=== PATIENT | male | born 1935 | race Caucasian/White ===

== ENCOUNTER 2018-06-12 18:40 | Inpatient (IN) | payer MEDICARE, SELFPAY ==
[2018-06-12 18:53] VITALS: BP 156/94; PULSE 84; RESP 16; TEMP 36.2; O2SAT 98
--- NOTE | 2018-06-12 19:15 | ED.BACK ---
HPI - Back Pain/Injury <DARWIN Sutherland - Last Filed: 06/12/18 22:55> General Chief Complaint: Back Pain/Injury Stated Complaint: WEAKNESS Time Seen by Provider: 06/12/18 19:08 Source: patient Mode of arrival: ambulatory Limitations: no limitations History of Present Illness HPI Narrative: 82-year-old male with history of dementia brought in by due to having worsening weakness over the past 4-5 days. states that he has not been able to walk for the last few days. She states that he had a ground level fall approximately 5 days ago where he landed on his buttocks area while he was trying to sit on the bed. She denies any head injuries. Patient does have a history of having past TIAs. Patient is unable to give any history due to his dementia. Believe patient is saying that he has pain into his middle back. No other known complaints Related Data Home Medications Medication Instructions Recorded Confirmed LATANOPROST 0.005% OPHTH 1 drp OPHTH HS #2.5 ml 10/12/12 06/12/18 (Latanoprost) atorvastatin 40 mg PO QDAY #0 10/12/12 06/12/18 metformin [Glucophage] 1,000 mg PO BIDCC #0 10/12/12 06/12/18 metoprolol succinate 50 mg PO QDAY #0 10/12/12 06/12/18 acetaminophen 1,000 mg PO TID #0 12/08/17 06/12/18 apixaban [Eliquis] 2.5 mg PO BID #0 12/08/17 06/12/18 losartan 50 mg PO QDAY #0 12/08/17 06/12/18 metoprolol succinate [Toprol XL] 100 mg PO QDAY #0 12/08/17 06/12/18 B-12 Compliance 06/13/18 mirabegron [Myrbetriq] 50 mg PO Q OTHER DAY 06/13/18 06/13/18 Allergies Allergy/AdvReac Type Severity Reaction Status Date / Time No Known Drug Allergies Allergy Verified 06/12/18 22:57 Review of Systems <DARWIN Sutherland - Last Filed: 06/12/18 22:55> Constitutional Denies chills, Denies fever(s), Denies lethargy and Reports weakness Comments: says that patient is unable to walk at this point Eyes Denies change in vision, Denies eye discharge, Denies irritation and Denies loss of vision ENT Ears, Nose, Mouth, and Throat: Denies change in voice, Denies neck pain and Denies sore throat Cardiovascular Denies chest pain, Denies irregular heart rhythm, Denies lightheadedness, Denies palpitations, Denies dyspnea, Denies dyspnea on exertion and Denies orthopnea Respiratory Denies cough, Denies dyspnea, Denies dyspnea on exertion and Denies wheezing Gastrointestinal Gastrointestinal: Denies abdominal pain, Denies change in bowel habits, Denies diarrhea, Denies nausea and Denies vomiting Genitourinary Denies hematuria, Denies flank pain, Denies urinary incontinence and Denies urinary urgency Musculoskeletal Denies neck pain Comments: Decreased ability to ambulate pain to middle back Integumentary/Breasts Denies pruritus, Denies erythema, Denies rash and Denies wounds Neurologic Denies confusion, Denies loss of vision and Reports weakness Psychiatric Denies anxiety, Denies confusion, Denies depression, Denies homicidal ideation and Denies suicidal ideation Endocrine Denies palpitations Hematologic/Lymphatic Denies easy bruising Allergic/Immunologic Denies wheezing Exam <DARWIN Sutherland - Last Filed: 06/12/18 22:55> Initial Vital Signs Initial Vital Signs: Vital Signs Temperature 97.2 F L 06/12/18 18:53 Pulse Rate 84 06/12/18 18:53 Respiratory Rate 16 06/12/18 18:53 Blood Pressure 156/94 H 06/12/18 18:53 Pulse Oximetry 98 06/12/18 18:53 Const General: cooperative and well developed Nutritional Appearance: well nourished Orientation: alert, awake, oriented x3 and not confused [facility] Mouth: oral mucosae normal and moist mucous membranes Eyes General: appearance normal, both eyes and all related structures Eyelids: eyelids normal Conjunctivae: conjunctivae normal Sclera: sclerae normal Pupils: PERRL EOM: EOM intact bilaterally Resp Effort & Inspection: normal respiratory effort, able to speak in complete sentences, no respiratory distress and no use of accessory muscles Auscultation: clear to auscultation bilaterally, no rales, no rhonchi and no wheezes Cardio Rate: regular rate Rhythm: regular rhythm Heart Sounds: no click, no gallops, no murmurs and no rubs Pulses: normal peripheral pulses GI Inspection: non-distended Palpation: soft, no hepatosplenomegaly, No guarding, No pulsatile mass and No tender Auscultation: normal bowel sounds Back/Spine/Pelvis Back: No CVA tenderness Cervical Spine: cervical ROM normal and No pain with cervical ROM Thoracic/Lumbar Spine: thoracic and lumbar spine normal to inspection Skin General: no rashes or lesions noted, No jaundice and No petechiae Neuro General: alert, awake, not oriented x3, gait abnormal, confused and unable to assess gait Cognition: normal cognition <Cintia Hawthorne DO - Last Filed: 06/13/18 05:42> Initial Vital Signs Initial Vital Signs: Vital Signs Temperature 97.2 F L 06/12/18 18:53 Pulse Rate 84 06/12/18 18:53 Respiratory Rate 16 06/12/18 18:53 Blood Pressure 156/94 H 06/12/18 18:53 Pulse Oximetry 98 06/12/18 18:53 GENERAL: Chronically ill frail appearing elderly male HEENT: Head atraumatic,EOMI, pupils reactive, very mild right-sided facial droop NECK: Supple no tenderness CARDIOVASCULAR: Regular rate and rhythm without murmurs, rubs or gallops. RESPIRATORY: Breath sounds equal bilaterally, no wheezes rales or rhonchi. ABDOMEN: Soft, nontender. Normoactive bowel sounds all 4 quadrants. No guarding or rebound. : No CVA tenderness EXTREMITIES: Normal range of motion, no clubbing or edema. Neurovascularly intact NEUROLOGICAL: Awake and alert is able to participate follow some commands. Left hand sanitarian strength is weaker but arms do not drift to the gurney. Does not move legs but can wiggle toes on both sides. Both legs dropped quickly to the gurney. Sensation is intact in all extremities. SKIN: Warm, dry, no laceration, no petechiae, no rashes or lesions. Course <DARWIN Sutherland - Last Filed: 06/12/18 22:55> Orders Ordered: ED Orders 06/12/18 20:55 Urine Microscopic Stat 06/12/18 22:50 Consult to Physician Routine 06/13/18 00:22 Consult to Dietitian, Adult Routine 06/13/18 00:24 Consult to Dietitian, Adult Routine 06/13/18 05:31 MRSA PCR Routine Acetaminophen (Tylenol) 650 mg PO Q6HR PRN PRN Reason: As Needed for Fever/Mild Pain Sodium Chloride (Normal Saline 0.9%) 1,000 mls @ 125 mls/hr IV CONT [facility] Last Admin: 06/13/18 00:51 Dose: 125 mls/hr Ondansetron HCl (Zofran) 4 mg IV Q4HR PRN PRN Reason: Nausea And Vomiting Vital Signs - 8 hr 06/12/18 22:08 06/12/18 23:42 06/13/18 00:05 Temperature 97.7 F Pulse Rate 74 78 67 Respiratory Rate 15 16 15 Blood Pressure 132/87 H 140/73 H Blood Pressure [Right Arm] 130/69 H Pulse Oximetry 99 99 98 <Cintia Hawthorne DO - Last Filed: 06/13/18 05:42> Orders Ordered: ED Orders 06/12/18 20:55 Urine Microscopic Stat 06/12/18 22:50 Consult to Physician Routine 06/13/18 00:22 Consult to Dietitian, Adult Routine 06/13/18 00:24 Consult to Dietitian, Adult Routine 06/13/18 05:31 MRSA PCR Routine Acetaminophen (Tylenol) 650 mg PO Q6HR PRN PRN Reason: As Needed for Fever/Mild Pain Sodium Chloride (Normal Saline 0.9%) 1,000 mls @ 125 mls/hr IV CONT [facility] Last Admin: 06/13/18 00:51 Dose: 125 mls/hr Ondansetron HCl (Zofran) 4 mg IV Q4HR PRN PRN Reason: Nausea And Vomiting Vital Signs - 8 hr 06/12/18 22:08 06/12/18 23:42 06/13/18 00:05 Temperature 97.7 F Pulse Rate 74 78 67 Respiratory Rate 15 16 15 Blood Pressure 132/87 H 140/73 H Blood Pressure [Right Arm] 130/69 H Pulse Oximetry 99 99 98 MDM - Back Pain/Injury <DARWIN Sutherland - Last Filed: 06/12/18 22:55> Lab Data Result diagrams: 06/12/18 20:30 06/12/18 20:30 Lab Results 06/12/18 06/12/18 06/12/18 Range/Units 20:30 20:30 20:55 WBC 5.9 (4.5-11.0) X10^3/uL RBC 4.07 L (4.5-5.9) X10^6/uL Hgb 11.4 L (13.5-17.5) g/dL Hct 34.4 L (41-53) % MCV 84.6 (80-100) fL MCH 28.0 (26-34) PG MCHC 33.2 (30-36) % RDW 15.8 H (11.6-14.8) % Plt Count 261 (150-400) X10^3/uL Neut % (Auto) 63.6 (50-75) % Lymph % (Auto) 25.0 (25-40) % [place] % (Auto) 8.8 (3-14) % Eos % (Auto) 2.2 (2-4) % Baso % (Auto) 0.4 (0-2) % Neut # (Auto) 3700 (2106-8735) /uL Sodium 136 L (137-145) mmol/L Potassium 4.6 (3.4-5.1) mmol/L Chloride 99 (98-107) mmol/L Carbon Dioxide 29 (22-32) mmol/L BUN 15 (9-20) mg/dL Creatinine 0.90 (0.66-1.25) mg/dL Estimated GFR > 60.0 (>60) mL/min BUN/Creatinine Ratio 16.7 (6-22) Glucose 178 H (80-110) mg/dL Calcium 9.1 (8.4-10.2) mg/dL Total Bilirubin 0.4 (0.2-1.3) mg/dL AST 15 L (17-59) IU/L ALT 19 L (21-72) IU/L Alkaline Phosphatase 61 (38-126) U/L Total Creatine Kinase 85 (55-170) U/L Troponin I < 0.012 (0.01-0.034) ng/mL Total Protein 6.9 (6.3-8.2) g/dL Albumin 3.7 (3.5-5.0) g/dL Globulin 3.2 (1.7-4.1) g/dL Albumin/Globulin Ratio 1.2 (1.0-2.8) Urine RBC 0-1/hpf (0-5/HPF) Urine WBC None seen (0-5/HPF) Urine Bacteria None seen (None) Hyaline Casts 0-1/lpf (None) Ur Culture Indicated? Cult not indicated Micro UA Comment Not Reportable Imaging Data CT scan - head: Radiologist's impression: PROCEDURE: CT HEAD/BRAIN WO CON INDICATIONS: Decreased ability to ambulate TECHNIQUE: Noncontrast 4.5 mm thick angled axial sections acquired from the foramen magnum to the vertex, with coronal and sagittal reformats. For radiation dose reduction, the following was used: automated exposure control, adjustment of mA and/or kV according to patient size. COMPARISON: [facility], CT, HEAD WITHOUT CONTRAST, 12/08/2017, 10:39. [facility], CT, HEAD WITHOUT CONTRAST, 07/24/2015, 17:19. [facility], MR, STROKE PROTOCOL, 10/12/2012, 17:17. [facility], CT, HEAD WITHOUT CONTRAST, 10/12/2012, 15:46. [facility], CT, HEAD WITHOUT CONTRAST, 12/30/2017, 15:47. FINDINGS: Image quality: Excellent. CSF spaces: Basal cisterns are patent. No extra-axial fluid collections. The ventricles are symmetric in size and shape. Brain: No intracranial bleeds or masses. There is moderate cerebral volume loss for age, with resultant ventricular and sulcal prominence. There are severe periventricular and deep white matter chronic small vessel ischemic changes. 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 There is intracranial internal carotid artery and vertebral artery atherosclerosis. Skull and face: Calvarium and visualized facial bones appear intact, without suspicious lesions. Sinuses: Small air-fluid level noted in the left maxillary sinus. The mastoids are clear. IMPRESSION: No acute intracranial disease process. Dictated by: Alisson Grant MD, PhD on 06/12/2018 at 20:16 Approved by: Alisson Grant MD, PhD on 06/12/2018 at 20:21 Chest x-ray: Radiologist's impression: PROCEDURE: XR CHEST 1V INDICATIONS: Weakness unable ambulate TECHNIQUE: One view of the chest was acquired. COMPARISON: [facility], , CHEST 1 VIEW, 10/12/2012, 16:35. [facility], CHEST 2 VIEW, 09/07/2010, 11:50. [facility], CHEST 2 VIEW, 04/25/2008, 12:46. [facility], CR, CHEST 1 VIEW, 12/30/2017, 15:36. FINDINGS: Surgical changes and devices: None. Lungs and pleura: No pleural effusions or pneumothorax. There is cephalization of the pulmonary vasculature and increased interstitial prominence. Mediastinum: Mediastinal contours appear normal. Heart size is heart is enlarged Bones and chest wall: No suspicious bony lesions. Overlying soft tissues appear unremarkable. IMPRESSION: Cardiomegaly with cephalization of pulmonary vasculature and increased interstitial prominence concerning for CHF. Dictated by: Alisson Grant MD, PhD on 06/12/2018 at 20:11 Approved by: Alisson Grant MD, PhD on 06/12/2018 at 20:12 Lumbar x-ray: Radiologist's impression: PROCEDURE: XR LUMBAR SPINE 2-3V INDICATIONS: Possible back pain after fall TECHNIQUE: 3 views of the lumbar spine were acquired. COMPARISON: None. FINDINGS: Bones: 5 [id number] vertebrae are present. There is normal bony alignment. No vertebral body compression fractures. No suspicious bony lesions. Multilevel degenerative disc disease and facet arthropathy. Soft tissues: Overlying bowel gas pattern is normal. Atherosclerotic calcifications noted. IMPRESSION: No fracture. No acute osseous lesion. If there are persistent symptoms or continued clinical suspicion for pathology, then MRI should be considered for further evaluation. Dictated by: Alisson Grant MD, PhD on 06/12/2018 at 20:15 Approved by: Alisson Grant MD, PhD on 06/12/2018 at 20:15 Thoracic x-ray: Radiologist's impression: PROCEDURE: XR THORACIC SPINE 3V INDICATIONS: Possible back pain after fall TECHNIQUE: 3 views of the thoracic spine were acquired. COMPARISON: None. FINDINGS: Bones: No fractures or dislocations. No suspicious bony lesions. 12 pairs of ribs are noted, and appear intact where visualized. Multilevel degenerative changes noted. Soft tissues: No paravertebral stripe thickening. IMPRESSION: No fracture. No osseous lesion. If there are persistent symptoms or clinical suspicion for pathology, then repeat radiographs or advanced imaging (CT, MRI or bone scan) should be considered for further evaluation. Dictated by: Alisson Grant MD, PhD on 06/12/2018 at 20:15 Approved by: Alisson Grant MD, PhD on 06/12/2018 at 20:16 ECG Data Interpretation: EKG shows normal sinus rhythm with no ST elevation or depression. No ectopy. Ventricular rate of 88. QRS duration of 109. QT of 391 MDM Narrative Medical decision making narrative: CT of the head was obtained and was negative for any acute findings. X-rays of the lumbar and thoracic back were obtained and were unremarkable. Chest x-ray was obtained was negative. EKG shows sinus rhythm with no ST elevation or depression. CBC and Chem panel were obtained were unremarkable. Cardiac enzymes were negative. No identifiable cause of why patient is unable to ambulate. Discussed case with hospitalist Dr. Toth who accepted patient for further evaluation and treatment and consideration for MRI of head in the morning. Differential of sprain/contusion to lower back causing pain. Patient admitted to inpatient services observation <Cintia Hawthorne DO - Last Filed: 06/13/18 05:42> Lab Data Lab Results 06/12/18 06/12/18 06/12/18 Range/Units 20:30 20:30 20:55 WBC 5.9 (4.5-11.0) X10^3/uL RBC 4.07 L (4.5-5.9) X10^6/uL Hgb 11.4 L (13.5-17.5) g/dL Hct 34.4 L (41-53) % MCV 84.6 (80-100) fL MCH 28.0 (26-34) PG MCHC 33.2 (30-36) % RDW 15.8 H (11.6-14.8) % Plt Count 261 (150-400) X10^3/uL Neut % (Auto) 63.6 (50-75) % Lymph % (Auto) 25.0 (25-40) % [place] % (Auto) 8.8 (3-14) % Eos % (Auto) 2.2 (2-4) % Baso % (Auto) 0.4 (0-2) % Neut # (Auto) 3700 (9666-5185) /uL Sodium 136 L (137-145) mmol/L Potassium 4.6 (3.4-5.1) mmol/L Chloride 99 (98-107) mmol/L Carbon Dioxide 29 (22-32) mmol/L BUN 15 (9-20) mg/dL Creatinine 0.90 (0.66-1.25) mg/dL Estimated GFR > 60.0 (>60) mL/min BUN/Creatinine Ratio 16.7 (6-22) Glucose 178 H (80-110) mg/dL Calcium 9.1 (8.4-10.2) mg/dL Total Bilirubin 0.4 (0.2-1.3) mg/dL AST 15 L (17-59) IU/L ALT 19 L (21-72) IU/L Alkaline Phosphatase 61 (38-126) U/L Total Creatine Kinase 85 (55-170) U/L Troponin I < 0.012 (0.01-0.034) ng/mL Total Protein 6.9 (6.3-8.2) g/dL Albumin 3.7 (3.5-5.0) g/dL Globulin 3.2 (1.7-4.1) g/dL Albumin/Globulin Ratio 1.2 (1.0-2.8) Urine RBC 0-1/hpf (0-5/HPF) Urine WBC None seen (0-5/HPF) Urine Bacteria None seen (None) Hyaline Casts 0-1/lpf (None) Ur Culture Indicated? Cult not indicated Micro UA Comment Not Reportable Discharge Plan Departure Patient Disposition: Admitted As Inpatient Clinical Impression: Ambulatory dysfunction, Weakness Discharge Date/Time: 06/12/18 23:46 Interventions: ED Discharge Assessment Last Done: 06/12/18 23:42 Admit Date/Time: 06/12/18 22:54 Admit Provider: Gilmer Toth <Cintia Hawthorne DO - Last Filed: 06/13/18 05:42> Cosign ED Attending Mollyature Attestation: I have seen and evaluated patient myself. It sounds as though he was ambulatory and has had a relatively quick decline since Friday. His head CT and workup is negative. No focal deficits to suggest a true stroke. CT of back is negative. No sign of infection. Unclear the cause of decline. I discussed all findings with the patient [and /spouse mother], Education has been performed regarding treatment plan, diagnosis, warning signs and symptoms and all concerns have been addressed. Verbally agree with and understood all of the above.
--- NOTE | 2018-06-12 19:35 | DI.RAD.S_ITS ---
PROCEDURE: XR THORACIC SPINE 3V INDICATIONS: Possible back pain after fall TECHNIQUE: 3 views of the thoracic spine were acquired. COMPARISON: None. FINDINGS: Bones: No fractures or dislocations. No suspicious bony lesions. 12 pairs of ribs are noted, and appear intact where visualized. Multilevel degenerative changes noted. Soft tissues: No paravertebral stripe thickening. IMPRESSION: No fracture. No osseous lesion. If there are persistent symptoms or clinical suspicion for pathology, then repeat radiographs or advanced imaging (CT, MRI or bone scan) should be considered for further evaluation. Dictated by: Alisson Grant MD, PhD on 06/12/2018 at 20:15 Approved by: Alisson Grant MD, PhD on 06/12/2018 at 20:16
--- NOTE | 2018-06-12 19:35 | DI.RAD.S_ITS ---
PROCEDURE: XR CHEST 1V INDICATIONS: Weakness unable ambulate TECHNIQUE: One view of the chest was acquired. COMPARISON: [facility], CHEST 1 VIEW, 10/12/2012, 16:35. [facility], CHEST 2 VIEW, 09/07/2010, 11:50. [facility], CHEST 2 VIEW, 04/25/2008, 12:46. [facility], CHEST 1 VIEW, 12/30/2017, 15:36. FINDINGS: Surgical changes and devices: None. Lungs and pleura: No pleural effusions or pneumothorax. There is cephalization of the pulmonary vasculature and increased interstitial prominence. Mediastinum: Mediastinal contours appear normal. Heart size is heart is enlarged Bones and chest wall: No suspicious bony lesions. Overlying soft tissues appear unremarkable. IMPRESSION: Cardiomegaly with cephalization of pulmonary vasculature and increased interstitial prominence concerning for CHF. Dictated by: Alisson Grant MD, PhD on 06/12/2018 at 20:11 Approved by: Alisson Grant MD, PhD on 06/12/2018 at 20:12
--- NOTE | 2018-06-12 19:35 | DI.CT.S_ITS ---
PROCEDURE: CT HEAD/BRAIN WO CON INDICATIONS: Decreased ability to ambulate TECHNIQUE: Noncontrast 4.5 mm thick angled axial sections acquired from the foramen magnum to the vertex, with coronal and sagittal reformats. For radiation dose reduction, the following was used: automated exposure control, adjustment of mA and/or kV according to patient size. COMPARISON: [facility], CT, HEAD WITHOUT CONTRAST, 12/08/2017, 10:39. [facility], CT, HEAD WITHOUT CONTRAST, 07/24/2015, 17:19. [facility], MR, STROKE PROTOCOL, 10/12/2012, 17:17. [facility], CT, HEAD WITHOUT CONTRAST, 10/12/2012, 15:46. [facility], CT, HEAD WITHOUT CONTRAST, 12/30/2017, 15:47. FINDINGS: Image quality: Excellent. CSF spaces: Basal cisterns are patent. No extra-axial fluid collections. The ventricles are symmetric in size and shape. Brain: No intracranial bleeds or masses. There is moderate cerebral volume loss for age, with resultant ventricular and sulcal prominence. There are severe periventricular and deep white matter chronic small vessel ischemic changes. 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 There is intracranial internal carotid artery and vertebral artery atherosclerosis. Skull and face: Calvarium and visualized facial bones appear intact, without suspicious lesions. Sinuses: Small air-fluid level noted in the left maxillary sinus. The mastoids are clear. IMPRESSION: No acute intracranial disease process. Dictated by: Alisson Grant MD, PhD on 06/12/2018 at 20:16 Approved by: Alisson Grant MD, PhD on 06/12/2018 at 20:21
--- NOTE | 2018-06-12 19:35 | DI.RAD.S_ITS ---
PROCEDURE: XR LUMBAR SPINE 2-3V INDICATIONS: Possible back pain after fall TECHNIQUE: 3 views of the lumbar spine were acquired. COMPARISON: None. FINDINGS: Bones: 5 [id number] vertebrae are present. There is normal bony alignment. No vertebral body compression fractures. No suspicious bony lesions. Multilevel degenerative disc disease and facet arthropathy. Soft tissues: Overlying bowel gas pattern is normal. Atherosclerotic calcifications noted. IMPRESSION: No fracture. No acute osseous lesion. If there are persistent symptoms or continued clinical suspicion for pathology, then MRI should be considered for further evaluation. Dictated by: Alisson Grant MD, PhD on 06/12/2018 at 20:15 Approved by: Alisson Grant MD, PhD on 06/12/2018 at 20:15
[2018-06-12 20:40] VITALS: BP 127/70; PULSE 71; RESP 17; O2SAT 98
[2018-06-12 20:44] LABS: Add Manual Diff / Slide Review NO; Basophils Percent Auto 0.4 % (0-2); Eosinophils Percent Auto 2.2 % (2-4); Hematocrit 34.4 % (41-53); Hemoglobin 11.4 g/dL (13.5-17.5); Mean Corpuscular HGB Conc 33.2 % (30-36); Mean Corpuscular Volume 84.6 fL (80-100); Monocytes Percent Auto 8.8 % (3-14); Neutrophils Absolute Auto 3700 /uL (3000-5900); Neutrophils Percent Auto 63.6 % (50-75); Platelet Count 261 X10^3/uL (150-400); Red Blood Cell Count 4.07 X10^6/uL (4.5-5.9); Red Cell Distribution Width 15.8 % (11.6-14.8); White Blood Cell Count 5.9 X10^3/uL (4.5-11.0)
[2018-06-12 20:57] LABS: Alanine Aminotransferase 19 IU/L (21-72); Albumin 3.7 g/dL (3.5-5.0); Albumin Globulin Ratio 1.2 (1.0-2.8); Alkaline Phosphatase 61 U/L (38-126); Aspartate Aminotransferase 15 IU/L (17-59); BUN Creatinine Ratio 16.7 (6-22); Bilirubin Total 0.4 mg/dL (0.2-1.3); Blood Urea Nitrogen 15 mg/dL (9-20); Calcium 9.1 mg/dL (8.4-10.2); Carbon Dioxide 29 mmol/L (22-32); Chloride 99 mmol/L (98-107); Creatine Kinase 85 U/L (55-170); Estimated Glomerular Filt Rate > 60.0 mL/min (>60); Globulin 3.2 g/dL (1.7-4.1); Glucose 178 mg/dL (80-110); HEMOLYSIS < 15 (0-50); Potassium 4.6 mmol/L (3.4-5.1); Sodium 136 mmol/L (137-145); Total Protein 6.9 g/dL (6.3-8.2)
[2018-06-12 21:10] LABS: Troponin I < 0.012 ng/mL (0.01-0.034)
[2018-06-12 22:08] VITALS: BP 130/69; PULSE 74; RESP 15; O2SAT 99
[2018-06-12 22:21] LABS: Bacteria Urine None Seen; WBC Urine None Seen (0-5/HPF)
[2018-06-12 22:28] LABS: Culture Indicated Urine Cult Not Indicated; Hyaline Casts Urine 0-1/LPF; RBC Urine 0-1/HPF (0-5/HPF)
[2018-06-12 23:42] VITALS: BP 132/87; PULSE 78; RESP 16; O2SAT 99
--- NOTE | 2018-06-12 23:45 | PC.NURSE ---
Patient took his nightly meds with water from , ok per do Hawthorne.
[2018-06-13] VITALS (8 sets, daily range): BP systolic 131–154; BP diastolic 70–99; PULSE 66–93; RESP 10–23; TEMP 36.3–36.9; O2SAT 94–98; BMI 24.7
--- NOTE | 2018-06-13 | DI.MRI.S_ITS ---
PROCEDURE: MR STROKE Pre- and post-contrast brain MRI, non-contrast brain MR angiogram, pre- and postcontrast neck MR angiogram INDICATIONS: CVA TECHNIQUE: Brain: Noncontrast axial T1 spin echo, axial T2 fast spin echo, sagittal and axial FLAIR, coronal T2 fast spin echo, axial gradient echo, axial diffusion and ADC through the brain. After the administration of contrast, axial 3D VIBE of the cranial vasculature and brain. Brain MRA: Non-contrast 3-D time of flight MR angiogram, with multiple oqdubtz-wdkhiqlvu-bieuefgzto (MIP) reformats performed. Neck MRA: Axial and sagittal TruFISP through the neck. Coronal dynamic MR angiogram during administration of contrast in the arterial and venous phases, with 3-dimenstional uwgbtij-jwqxdmyfb-yvrnwfdwzh (MIP) reformats constructed from subtraction images. COMPARISON: [facility], , STROKE PROTOCOL, 12/30/2017, 17:13. FINDINGS: Image quality: The patient was unable to follow commands for the duration of the study and hold still. Motion artifact limits evaluation of some studies. The entire study was not obtained secondary to the patient's request to terminate early. BRAIN: CSF spaces: The ventricles and sulci are enlarged consistent with extensive volume loss. Basal cisterns are patent. No extra-axial fluid collections. Brain: No intracranial bleeds or mass effects. Chew-white matter interface is normal. 2 foci of increased restricted diffusion are present within the brooke. There is no T2 shine through. Brainstem appears normal. Normal intravascular flow voids are present. No abnormal intracranial enhancement. There is extensive periventricular and deep white matter T2/FLAIR signal hyperintensity. Skull and face: Calvarial marrow signal is normal. Orbits appear normal. Sinuses: Trace fluid is present within the right mastoid air cells. Sinuses and mastoids are otherwise clear. BRAIN MR ANGIOGRAM: Anterior circulation: Intracranial internal carotid arteries are normal in size and enhancement. The flow within the paired anterior cerebral arteries is normal and symmetric. The flow within the middle cerebral arteries is normal and symmetric. The anterior communicating artery is seen. No stenoses, occlusions, or aneurysms. Posterior circulation: The visualized portions of the vertebral arteries demonstrate normal caliber, and join to form a normal appearing basilar artery. The flow within the posterior cerebral arteries is normal and symmetric. No stenoses, occlusions, or aneurysms. NECK MR ANGIOGRAM: Carotids: Great vessels demonstrate a conventional anatomy as they arise from the aortic arch. The origins of the common carotid arteries appear patent. The calibers and courses of both common carotid arteries are normal. The bifurcation regions appear normal bilaterally. The internal carotid arteries demonstrate normal course and caliber. Posterior circulation: The origins of the vertebral arteries appear patent. More superior portions of both vertebral arteries demonstrate normal course and caliber, and join to form a normal appearing basilar artery. Miscellaneous: Subclavian arteries appear patent. Pre-contrast images through the neck show no soft tissue abnormalities. IMPRESSION: BRAIN MRI: 1. 2 foci of increased restricted diffusion within the brooke consistent with acute or subacute infarct. 2. Extensive volume loss and findings consistent with extensive chronic microvascular ischemic changes. 3. 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 4. Trace fluid within the right mastoid air cells. BRAIN MR ANGIOGRAM: 1. No stenosis, occlusion, or aneurysm. NECK MR ANGIOGRAM: 1. No stenosis, occlusion, or aneurysm. These findings were discussed with Dr. Fish at 5:48 PM on 06/13/18. Dictated by: Laine Hopkins M.D. on 06/13/2018 at 17:37 Approved by: Laine Hopkins M.D. on 06/13/2018 at 17:49
[2018-06-13] MEDS: SODIUM CHLORIDE 0.9% 1,000 ML 125 ML IV ×2 (00:51→09:00)
[2018-06-13] MEDS: LOSARTAN 50 MG TABLET PO (12:55)
[2018-06-13] MEDS: METOPROLOL ER 50 MG TABLET 150 MG PO (12:55)
[2018-06-13] MEDS: METFORMIN HCL 500 MG TABLET 1000 MG PO (12:56)
[2018-06-13] MEDS: APIXABAN 5 MG TABLET 2.5 MG PO (12:56)
--- NOTE | 2018-06-13 13:35 | PC.NURSE ---
Addendum entered by Rock Hardin R.N. 06/13/18 14:30: Pt to MRI at 1415. MRI questionnaire completed by . Original Note: Pt incontinent of urine and stool. Hygiene care provided. Noted two small stage 2 pressure ulcers at gluteal cleft. Applied barrier cream. Pt transferred from bed to chair using sit to stand lift and 2PA. Waffle cushion placed on chair.
--- NOTE | 2018-06-13 13:50 | CM.DANOTE ---
Patient is an 82 year old male who was admitted on 06/12/18 for Weakness. Pt has MCR and [employer] for insurance and his PCP is Dr. Oliva. EMR was reviewed. Per MD in the ER, pt was not a good historian due to dementia and hx provided by spouse and family. Per RN, no PT/OT ordered yet. SW met bedside with pt, who did not participate in conversation, and spouse Ridgeview ([phone]) and confirmed that the pt resides at home in [place] with her as his primary caregiver. Pt typically can ambulate without much assist and had been using a cane but over the past 10 days pt has begun to decline and become more weak and needing the use of a w/c. Spouse states that family, son and dtr and son inlaw, had recently been here to visit from out of town and had been very helpful with the pt but since they returned home then she has had increasing difficulty with managing pt at home due to weakness. Pt has a recent Hx of [facility] although they are not currently open to services. Pt has no hx of SNF rehab. Pt's spouse Ridgeview is his DPOA. Spouse unsure of d/c needs pending pt's progress and ability to ambulate with PT/OT here. SW needs unclear at this time. Plan: SW to follow closely after MD rounds and PT/OT eval towards determining if pt will progress enough to safely d/c home with spouse vs higher level of care (HH vs SNF). Possible OBS STATUS could be a barrier to d/c planning needs if SNF determined. 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 Is this patient on Medicare? Yes Prior Living Arrangements House Household Members spouse Type of transporation used prior to Relies on Others admit Comment Spouse is his primary CG who provides transport and care. Independent with ADL's No Is patient alert and oriented? No Needs Assistance With Grooming Meal Prep Managing Medications Home Chores / Shopping Caregiver for Another No DME Already Rented / Owned Wheelchair Cane Community Services Needed at Discharge Physical Therapy Social Work Comment Waiting for PT/OT eval to determine d/c planning needs. Discharge Plan Home Transportation Arrangement Spouse available to provide transport although pt may require higher level of care prior to home. Review Status In Process Next Review Type Discharge Review
--- NOTE | 2018-06-13 14:51 | P.HP_ITS ---
History of Present Illness Date Patient Seen: 06/13/18 Time Patient Seen: 12:00 Chief complaint: WEAKNESS Narrative: 82-year-old under the primary care of Dr. Santiago Oliva, who was brought to the [facility] Emergency room yesterday due to weakness and unable to ambulate. He has been having weakness for about 6 days. She fell off the edge of the bed onto the floor about 6 days ago. The next day his noticed that he was having difficulty transferring or ambulating. She also noticed a cough about a week ago. She has noticed coughing when he tries to swallow. Patient History Medical History Dementia (Acute) Frequent falls (Acute) History of TIAs (Acute) Comment: Atrial fibrillation, on Eliquis for anticoagulation Hypertension Hyperlipidemia TIA in September of 2012 during transition off Pradaxa CVA, likely cardioembolic, February of 2014, presenting with a facial Type 2 diabetes Lumbar degenerative disc disease Erectile dysfunction Brett, 2004 B12 deficiency with cognitive impairment and gait instability, September of 2012 Obstructive sleep apnea, July of 2014, on CPAP Urinary incontinence Family & Social History Social History: household members spouse Prior Living Arrangements House Safety & Behavioral: Feels Safe in Current Yes Environment Been Physically Hurt or No Threatened By a Person Suicidal Ideation Description None Tobacco & Substance use: Smoking Status Never smoker alcohol intake never alcohol intake frequency 0-2 drinks per day Substance Use Type does not use Comment: He is . He lives with his . No alcohol drinking or cigarette smoking. Meds Home Medications Medication Instructions Recorded Confirmed Type LATANOPROST 0.005% OPHTH 1 drp OPHTH HS #2.5 ml 10/12/12 06/12/18 History (Latanoprost) atorvastatin 40 mg PO QDAY #0 10/12/12 06/12/18 History metformin [Glucophage] 1,000 mg PO BIDCC #0 10/12/12 06/12/18 History metoprolol succinate 50 mg PO QDAY #0 10/12/12 06/12/18 History acetaminophen 1,000 mg PO TID #0 12/08/17 06/12/18 History apixaban [Eliquis] 2.5 mg PO BID #0 12/08/17 06/12/18 History losartan 50 mg PO QDAY #0 12/08/17 06/12/18 History metoprolol succinate [Toprol XL] 100 mg PO QDAY #0 12/08/17 06/12/18 History B-12 Compliance 06/13/18 History mirabegron [Myrbetriq] 50 mg PO Q OTHER DAY 06/13/18 06/13/18 History Allergies Allergy/AdvReac Type Severity Reaction Status Date / Time No Known Drug Allergies Allergy Verified 06/12/18 22:57 Review of Systems Review of Systems Complete review of system is unable to obtain due to patient's dementia. Exam Vital Signs (past 8 hours): - 06/13/18 07:35 06/13/18 13:01 Temperature 98.5 F 97.8 F Pulse Rate 76 78 Respiratory Rate 16 14 Blood Pressure 136/93 H 134/88 H Pulse Oximetry 94 98 Oxygen Delivery Method Room Air Narrative Exam Narrative: GENERAL: Middle aged man in no acute distress. HEENT: Head normocephalic, atraumatic. Eyes pupils equal round NECK: Supple, no JVD, CHEST: Breath sounds equal bilaterally, no wheezes rales or rhonchi. CARDIAC: Irregularly irregular rhythm without murmurs, rubs or gallops. ABDOMEN: Soft, nontender. Normoactive bowel sounds all 4 quadrants. No guarding or rebound. EXTREMITIES: Trace edema bilateral ankles. NEUROLOGICAL: Alert, able to answer a few simple questions; able to lift right arm and leg against gravity, however muscle strength seemed to be weaker compared to the left; no obvious facial droop SKIN: Warm, dry, no petechiae, no rashes or lesions. Objective Imaging CT scan - head: Radiologist's impression: No acute intracranial disease process Chest x-ray: Radiologist's impression: Cardiomegaly with cephalization of pulmonary vasculature and increased interstitial prominence concerning for CHF. Labs Result Diagrams: 06/12/18 20:30 06/12/18 20:30 Labs: Laboratory Results - last 24 hr 06/12/18 06/12/18 06/12/18 20:30 20:30 20:55 WBC 5.9 RBC 4.07 L Hgb 11.4 L Hct 34.4 L MCV 84.6 MCH 28.0 MCHC 33.2 RDW 15.8 H Plt Count 261 Neut % (Auto) 63.6 Lymph % (Auto) 25.0 Hodgeman % (Auto) 8.8 Eos % (Auto) 2.2 Baso % (Auto) 0.4 Neut # (Auto) 3700 Sodium 136 L Potassium 4.6 Chloride 99 Carbon Dioxide 29 BUN 15 Creatinine 0.90 Estimated GFR > 60.0 BUN/Creatinine Ratio 16.7 Glucose 178 H Calcium 9.1 Total Bilirubin 0.4 AST 15 L ALT 19 L Alkaline Phosphatase 61 Total Creatine Kinase 85 Troponin I < 0.012 Total Protein 6.9 Albumin 3.7 Globulin 3.2 Albumin/Globulin Ratio 1.2 Urine RBC 0-1/hpf Urine WBC None seen Urine Bacteria None seen Hyaline Casts 0-1/lpf Ur Culture Indicated? Cult not indicated Micro UA Comment Not Reportable Nasal Screen MRSA (PCR) 06/13/18 01:00 WBC RBC Hgb Hct MCV MCH MCHC RDW Plt Count Neut % (Auto) Lymph % (Auto) Hodgeman % (Auto) Eos % (Auto) Baso % (Auto) Neut # (Auto) Sodium Potassium Chloride Carbon Dioxide BUN Creatinine Estimated GFR BUN/Creatinine Ratio Glucose Calcium Total Bilirubin AST ALT Alkaline Phosphatase Total Creatine Kinase Troponin I Total Protein Albumin Globulin Albumin/Globulin Ratio Urine RBC Urine WBC Urine Bacteria Hyaline Casts Ur Culture Indicated? Micro UA Comment Nasal Screen MRSA (PCR) Negative for mrsa Assessment & Plan Plan: Assessment/Plan Narrative: 1. Possible acute CVA: We will do a brain MRI MRA per stroke protocol to further evaluate. We will give him 1 time dose of aspirin. Continue Eliquis. Start PT, OT, and speech therapy evaluation and treatment. 2. Type 2 diabetes: Continue metformin. Monitor his fingerstick glucose readings 3. Chronic atrial fibrillation: Ventricular rate was in good range. Continue Eliquis for anticoagulation 4. Hypertension: Continue outpatient antihypertensive regimen 5. Hyperlipidemia: Continue atorvastatin. 6. Possible aspiration: His has noticed him coughing when he eats. We will have speech evaluation and treatment. 7. Possible chronic congestive heart failure: He does have bilateral lower extremity edema. Chest x-ray suggests possible pulmonary edema. We will start him on low-dose furosemide for diuresis. 8. Code status: Do not resuscitate. Patient has a post form filed at his primary care clinic. Quality VTE Deep Vein Thrombosis/Pulmonary Embolism Present on Admission: Yes
--- NOTE | 2018-06-13 15:29 | OT.IP.EVAL ---
Past Medical History (Last Reviewed 06/13/18 @ 14:50 by Nati Fish MD) Dementia (Acute) Frequent falls (Acute) History of TIAs (Acute) Occupational Therapy Inpatient Evaluation/Re-Eval M3 OT- IP Subjective and Pain Start: 06/13/18 15:28 Freq: Status: Active Protocol: Document 06/13/18 15:28 [facility] (Rec: 06/13/18 15:29 [facility] [id number]) OT- Subjective Occupational Therapy Visit Type Type Patient Unavailable Notes Pt just back from MRI and not ready for OT eval at this time .
--- NOTE | 2018-06-13 15:35 | ST.IPIE ---
Visit Care Team Role Provider Type Santiago Oliva MD Family Provider Physician Primary Care Provider Specialty: Internal Medicine Address: [address] [place] [address] Email: DARWIN Sutherland Emergency Provider Advanced Shaft Tender Specialty: Emergency Medicine Address: [address] [place] [address] Email: Gilmer Toth MD Admit Provider Physician Attending Provider Other Providers Specialty: Internal Medicine Address: [address] [place] [address] Email: Past Medical History (Last Reviewed 06/13/18 @ 14:50 by Nati Fish MD) Dementia (Acute Medical) Frequent falls (Acute Medical) History of TIAs (Acute Medical) ST IP Initial Evaulation Report 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 Santiago Oliva, who was brought to the [facility] Emergency room yesterday due to weakness and unable to ambulate. He has been having weakness for about 6 days. He fell off the edge of the bed onto the floor about 6 days ago. The next day his noticed that he was having difficulty transferring or ambulating. She also noticed a cough about a week ago. She has noticed coughing when he tries to swallow. Medical History (Reviewed @ 14:50 by Nati Fish MD) Dementia (Acute) Frequent falls (Acute) History of TIAs (Acute) Comment: Atrial fibrillation, on Eliquis for anticoagulation Hypertension Hyperlipidemia TIA in September of 2012 during transition off Pradaxa CVA, likely cardioembolic, February of 2014, presenting with a facial Type 2 diabetes Lumbar degenerative disc disease Erectile dysfunction Brett, 2005 B12 deficiency with cognitive impairment and gait instability, September of 2012 Obstructive sleep apnea, July of 2014, on CPAP Urinary incontinence Subjective Observations The pt was seated in his bedside chair with , eating noon meal. She was assisting him with eating. Evaluation Liquids Trialed Ice Chips Thin Solids Trialed Puree Dysphagia Mechanical Dysphagia Advanced Mechanical Soft Administration Type Tea Spoon Cup Single Sip Cup Consecutive Sips Straw Self-Feeding Dependent Feeding Oral Impairment Mildly Impaired Oral Strategies Lingual Sweep [place] Controlled Bite/Sip Size Oral Phase Comments [facility] indicated structures WFL. However a slight right side facial droop was observed ; more pronounced while chewing. No oral leakage or pocketing on right side observed. The pt self-fed his noon meal of soft foods. He was slow in raising right hand, but was holding his fork and able to bring the fork to his mouth. Mastication was adequate but slow. Bolus formation and control also appeared to be adequate. no oral residue observed after swallowing. Pharyngeal Impairment Mildly Impaired Pharyngeal Strategies Sitting Upright (90 deg) Double Swallow Small Bites and Sips Pharyngeal Phase Comments The pt's swallow appeared to be prompt with good hyolaryngeal elevation and excursion. The pt did cough with fresh fruit, presumable due to the mixed juice/solid when chewing fruit. He did not cough or choke any other time during the assessment. There was no observation of wet voicing following swallows . The pt eats/chews/swallows slowly. If given enough time he was able to safely tolerate a mechanical soft diet and thin liquids. In addition, he was observed to swallow his medications with thin liquids and the use of a straw without difficulty. Findings Dysphagia Type mild oropharyngeal dysphagia Rehabilitation Potential Good Impressions The pt appeared to safely tolerate a mechanical soft diet with thin liquids as well as his medications whole with thin liquid. He presented with mild oropharyngeal dysphagia. There was a facial droop (mild) noted on his right side. Given enough time , the pt was able to safely masticate and control the bolus as well as drink from a straw. He did cough x1 with fresh fruit presumably due to the mixture of liquid/solid present in the fruit Diet Recommendations Liquids Order Thin Diet Order Mechanical Soft Medication Recommendations As Tolerated Additional Dietary Needs 1:1 Supervision 1:1 Assistance Encourage to Self-Feed Aspiration Precautions Recommended Precautions Upright at 90 Degrees Small Bites/Sips Lingual Sweep Check for Pocketing Liquids from Cup Treatment Plan Placement Recommendations after Long-Term Facility Discharge Appropriate for Therapy Yes Therapy Recommendations Swallowing therapy for diet tolerance and family patient education Dysphagia Goals Diet monitor for safety with adjustments as indicated The pt will safely tolerate the least restrictive diet without s/sx aspiration. 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
--- NOTE | 2018-06-13 15:48 | PT.IPTN ---
Physical Therapy Treatment Note M3 PT-IP Subjective Start: 06/13/18 15:46 Freq: NEEDED Status: Active Protocol: Document 06/13/18 15:46 AB (Rec: 06/13/18 15:48 AB [id number]) Subjective Physical Therapy Visit Type Notes called ICU to check if pt is ready. nurse stated that pt is out for MRI. checked on pt after ~ 2 hours and nurse stated that pt just got back from the MRI and to check back in 10 min as they are doing reports. Went down to see pt after 15 min and nurse stated that they are taking pt out again for MRI as machine broke a while ago. will f/u tomorrow.
--- NOTE | 2018-06-13 16:25 | PC.NURSE ---
1600- Patient off unit to MRI. Patient will return to room 211 after the MRI. Patients is with him at the bedside. Patient stable at time of discharge.
--- NOTE | 2018-06-13 22:35 | PC.NURSE ---
Evening Shift Note Pt alert and confused at times during shift, easily redirected and apologetic and aware of confusion/forgetfulness. VSS, 98% on RA, no complaints of pain. Pt tolerating mechanical soft diet. Using urinal at bedside and incontinent at times, brief on. Up to chair for meals w/ sit to stand. Pt expresses that he does not wish to be awoken during night for VSS if asleep, also agreeable to plan to allow for longer periods of sleep. R FA PIV w/ NS @ 125ml/hr and R AC PV SL. Pt currently sleeping.
[2018-06-14] VITALS (9 sets, daily range): BP systolic 121–159; BP diastolic 71–95; PULSE 70–89; RESP 14–18; TEMP 36.3–36.7; O2SAT 94–98
--- NOTE | 2018-06-14 00:17 | PC.NURSE ---
Addendum entered by Miriam Damon R.N. 06/14/18 07:02: Has been awake most of night. Very pleasant and cooperative. Denies any pain. Incontinent x2 with urine + smears of BM. Repositioned q2h Original Note: Patient is oriented to self and that he is in the hospital, otherwise was unable to answer any of orientation questions. Speech is slurred and difficult to understand. Has slight right side facial droop. NIH score is 8. Breath sounds diminished but CTA with RA sat of 96%; respirations are shallow. HR is irregular and has hx of afib; on telemetry monitoring. Denies nausea. BT hypoactive. Has been incontinent of urine although reportedly does sometimes use urinal. Is unable to turn himself in bed so will require repositioning q2h. Denies pain. Fall risk score is high and bed alarm is activated. Weak in all extremities right > left. Extreme weakness in right LE. Have been using sit to stand lift for transfers to/from chair during the day.
[2018-06-14] MEDS: SODIUM CHLORIDE 0.9% 1,000 ML 125 ML IV (01:46)
[2018-06-14] MEDS: APIXABAN 5 MG TABLET 2.5 MG PO ×2 (08:27→20:06)
[2018-06-14] MEDS: LOSARTAN 50 MG TABLET PO (08:27)
[2018-06-14] MEDS: METFORMIN HCL 500 MG TABLET 1000 MG PO ×2 (08:27→20:06)
[2018-06-14] MEDS: FUROSEMIDE 20 MG/2 ML VIAL IV (08:27)
[2018-06-14] MEDS: METOPROLOL ER 50 MG TABLET 150 MG PO (08:27)
[2018-06-14] MEDS: ACETAMINOPHEN 325 MG TABLET 650 MG PO (08:29)
--- NOTE | 2018-06-14 11:06 | P.PN_ITS ---
Subjective Date Patient Seen: 06/14/18 Time Patient Seen: 10:30 Interval history: Clinically unchanged overnight. Patient is not able to provide much history. Exam Vital Signs (past 8 hours): - 06/14/18 04:00 06/14/18 07:30 06/14/18 07:49 Temperature 97.4 F L 97.3 F L Pulse Rate 89 87 Respiratory Rate 17 14 Blood Pressure 159/95 H 154/84 H Pulse Oximetry 98 97 96 Oxygen Delivery Method Room Air Oxygen Flow Rate 0 Narrative Exam Narrative: General: Middle-age man in no acute distress Lungs: Clear to auscultation bilaterally Heart: Irregular rhythm, no murmur appreciated Abdomen: Soft, nontender Extremities: No pitting edema Neuro: Alert, not communicating verbally, still has right-sided facial weakness and right arm and leg weakness. Objective Imaging MRI - head: Radiologist's impression: 1. 2 foci of increased restricted diffusion within the brooke consistent with acute or subacute infarct. 2. Extensive volume loss and findings consistent with extensive chronic microvascular ischemic changes. 3. 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 4. Trace fluid within the right mastoid air cells. BRAIN MR ANGIOGRAM: 1. No stenosis, occlusion, or aneurysm. NECK MR ANGIOGRAM: 1. No stenosis, occlusion, or aneurysm. Labs Result Diagrams: 06/12/18 20:30 06/12/18 20:30 Assessment & Plan Plan: Assessment/Plan Narrative: 1. 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 Increase Eliquis from 2.5 mg twice a day to 5 mg twice a day. Start baby aspirin 81 mg daily. 2. Type 2 diabetes: Continue metformin. Fingerstick glucose was around 150. We will continue monitor his fingerstick glucose readings 3. Chronic atrial fibrillation: Ventricular rate was in good range. Increase Eliquis to 5 mg twice a day 4. Hypertension: Continue outpatient antihypertensive regimen with losartan 50 mg once a day and Toprol XL 150 mg daily 5. Hyperlipidemia: Continue atorvastatin 40 mg daily 6. Possible aspiration: His has noticed him coughing when he eats. He was started on mechanical soft diet and thin liquids by speech pathologist. We will continue monitor him clinically 7. Possible chronic congestive heart failure: He does have bilateral lower extremity edema. Chest x-ray suggests possible pulmonary edema. He received furosemide 20 mg IV on June 13, 2018. Currently he does not seem to have clinical evidence of fluid overload. Discontinue IV fluid and discontinue IV furosemide. We will continue monitor his fluid status and daily weight. 8. Code status: Do not resuscitate. Patient has a post form filed at his primary care clinic. 9. Disposition: Discharge home with home health services when he is medically more stable. His is trying to the did his home ready and hire a personal lines sales executive. Quality VTE Deep Vein Thrombosis/Pulmonary Embolism Present on Admission: Yes
--- NOTE | 2018-06-14 11:25 | PT.IIE ---
Current Diagnoses Cerebral infarction, unspecified (06/12/18) Medical History (Last Reviewed 06/13/18 @ 14:50 by Nati Fish MD) Dementia (Acute) Frequent falls (Acute) History of TIAs (Acute) Physical Therapy Inpatient Evaluation/Re-Eval M1 PT/OT-IP Prior Functional Status Start: 06/13/18 15:28 Freq: NEEDED Status: Active Protocol: Document 06/14/18 11:25 [facility] (Rec: 06/14/18 13:07 [facility] [id number]) Medical Review Prior Functional Status Medical History Reviewed Yes Mobility and Gait pt was receiving physical therapy for months working on his mobility, he was walking with a SPC or no device then was discharged by home health just prior to this hospitalization Social History Household Members spouse Living Arrangements House Number of Floors (Floors) One Floor Number of Stairs To Enter/Railing? 4 SE B wide rails (can only use 1 @ a time) Home Environment High Toilet Walk in Shower Home Equipment Front Wheel Walker Four Wheel Walker Straight Cane Shower Seat with Backrest Employment Status Retired Additional Social History Comment notes that weakness started earlier this past week , he fell to the floor when sitting on EOB. M2 PT-IP Current Condition Start: 06/13/18 15:46 Freq: NEEDED Status: Active Protocol: Document 06/14/18 11:25 [facility] (Rec: 06/14/18 13:07 [facility] [id number]) Physical Therapy Current Condition Current Condition Evaluation Date 06/14/18 Treatment Diagnosis acute CVA, impaired mobility Onset Date 06/12/18 M3 PT-IP Subjective Start: 06/13/18 15:46 Freq: NEEDED Status: Active Protocol: Document 06/14/18 11:25 [facility] (Rec: 06/14/18 13:07 [facility] [id number]) Subjective Physical Therapy Visit Type Type Initial Evaluation Visit Start Time 10:50 Visit Stop Time 11:25 Total Visit Minutes 35 Notes R sided facial drooping and weakness noted at home prior to coming to the ER. MRI showed an acute CVA, likely embolitic in the brooke. Number of DIESEL MOTOR MECHANIC Visits 0 Physical Therapy Visit Comments Patient Comments pt willing to participate in therapy today. Short Term Goals would like to be able to get the pt back home, possibly even a personal CG. Therapy Pain Assessment Location Lower Back Scale Used does not rate. M4 PT-IP Mobility and Gait Start: 07/28/18 15:46 Freq: NEEDED Status: Active Protocol: Document 06/14/18 11:25 [facility] (Rec: 06/14/18 13:07 [facility] [id number]) PT-Bed Mobility Assessment Supine to Sit Supine to Sit Maximum Assistance 1 Person Assistance Scooting Scooting to Edge of Bed Maximum Assistance PT-Transfer Assessment Equipment Transfer Assistive Device Mechanical Lift Transfers Transfer Destination Chair Transfer Technique Power [id number] Transfer Ability Level of Assist Total Assistance 2 Person Assistance Comments Mobility Comments Pt initially with Min A to sit on EOB, but fatigued after sitting 30 sec, then requiring Mod/Max A to sit and maintain neutral. Not safe to transfer manually given the level of assistance required to balance in sitting. Power sit to stand used to transfer pt to the chair- flexed posture, forward head, manual and tactile cuing for more upright positioning. PT-Balance Assessment Sitting Balance and Reactions Static Sitting Balance Ability Poor Dynamic Sitting Balance Ability Poor M5 PT-IP Objective Assessments Start: 06/13/18 15:46 Freq: NEEDED Status: Active Protocol: Document 06/14/18 11:25 [facility] (Rec: 06/14/18 13:07 [facility] [id number]) Orientation Orientation/Cognition Level of Alertness Alert Comments answers yes/no but no further verbal communication. Gross Range of Motion Upper Extremity ROM Assessment Right Impaired Impairments impaired active R shoulder flexion to 90 deg, unable to touch top of head with R hand. L WNL Lower Extremity ROM Assessment Right Impaired Impairments impaired R hip, knee and ankle AROM, flaccidity in RLE mild Strength Upper Extremity Strength Assessment Bilaterally Impaired Shoulder L flexion 3+/5 Elbow L flexion and extension 3+/5, R flexion 3/5 and extension 2+ /5 Lower Extremity Strength Assessment Bilaterally Impaired Hip L flexion 3/5, R flexion 1/5 Knee L flexion and extension 3+/5, R flex/extension 1/5 Ankle L DF 3/5, R DF 1/5 Coordination Assessment Gross Coordination Gross Coordination Impaired Assessment Finger to Nose Test Severe Impairment Heel on [place] Test Severe Impairment Coordination Comments impaired R UE and LE coordination Sensation Assessment Comments Sensation Comments unable to assess Muscle Tone Muscle Tone WNL No Comments Muscle Tone Comments mild flacidity RUE and LE M6 PT-IP Treatment Start: 06/13/18 15:46 Freq: NEEDED Status: Active Protocol: Document 06/14/18 11:25 [facility] (Rec: 06/14/18 13:07 [facility] [id number]) Physical Therapy Treatment Exercises Exercises Heel Slides Short Arc Quads Other Treatments Other Treatment Performed education on seated marching, SAQ and/or heel slides seated with towel under R foot M7 PT-IP Assessment and Plan Start: 06/13/18 15:46 Freq: NEEDED Status: Active Protocol: Document 06/14/18 11:25 [facility] (Rec: 06/14/18 13:07 [facility] [id number]) PT Summary Assessment and Plan Potential Rehabilitation Potential Good Status of Condition at Evaluation Unstable Summary Impairments ROM Strength Balance Coordination Tone Cognition Bed Mobility Transfers Gait Activity Tolerance Assessment Summary Pt unable to sit without manual support this session, and fatigues rapidly sitting on EOB. He was not safe to manually transfer today given the level of assistance required to maintain sitting position. Pt appears motivated and has a supportive spouse. Pt is not safe to return home this date. would prefer to have pt d/c home, even willing to look into private CG. They may need a manisha or Power sit to stand if pt is to return home, but he would require heavy and constant assistance given his level of impairments at this time. 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 Recommendation would be SNF rehab., if tolerance improves and able to manually transfer, then pt possibly could d/c home with and private CG but he is not close to this level at time of this evaluation. Goals Bed Mobility Goal Minimal Assistance Transfer Goal Minimal Assistance Front Wheeled Walker Gait Goal Minimal Assistance Gait Distance 15 Days to Meet Goals 5 Frequency of Treatment Frequency Of Treatment Twice a Day Treatment Plan Physical Therapy Treatment Plan Bed Mobility Training Transfer Training Gait Training Therapeutic Exercise Balance Retraining Discharge Planning Neuromuscular Re-ed Coordination Retraining Manual Therapy Other Recommendations and Next Treatment transfers with progression Focus toward manual vs. power stander, thera ex, tone management/ROM/positioning. Recommendations To Nursing Amount of Assist Needed 2 Person Assist Power Sit-Stand Discharge Recommendations PT Discharge Recommendations SNF Rehab Equipment Needed for Home Before ramp built in and manisha or Discharge power stander if pt is to return home, as well as 09/06 assist and private CG
--- NOTE | 2018-06-14 11:25 | PT.IIE ---
Current Diagnoses Cerebral infarction, unspecified (06/12/18) Medical History (Last Reviewed 06/13/18 @ 14:50 by Nati Fish MD) Dementia (Acute) Frequent falls (Acute) History of TIAs (Acute) Physical Therapy Inpatient Evaluation/Re-Eval M1 PT/OT-IP Prior Functional Status Start: 06/13/18 15:28 Freq: NEEDED Status: Active Protocol: Document 06/14/18 11:25 [facility] (Rec: 06/14/18 13:07 [facility] [id number]) Medical Review Prior Functional Status Medical History Reviewed Yes Mobility and Gait pt was receiving physical therapy for months working on his mobility, he was walking with a SPC or no device then was discharged by home health just prior to this hospitalization Social History Household Members spouse Living Arrangements House Number of Floors (Floors) One Floor Number of Stairs To Enter/Railing? 4 SE B wide rails (can only use 1 @ a time) Home Environment High Toilet Walk in Shower Home Equipment Front Wheel Walker Four Wheel Walker Straight Cane Shower Seat with Backrest Employment Status Retired Additional Social History Comment notes that weakness started earlier this past week , he fell to the floor when sitting on EOB. M2 PT-IP Current Condition Start: 06/13/18 15:46 Freq: NEEDED Status: Active Protocol: Document 06/14/18 11:25 [facility] (Rec: 06/14/18 13:07 [facility] [id number]) Physical Therapy Current Condition Current Condition Evaluation Date 06/14/18 Treatment Diagnosis acute CVA, impaired mobility Onset Date 06/12/18 M3 PT-IP Subjective Start: 06/13/18 15:46 Freq: NEEDED Status: Active Protocol: Document 06/14/18 11:25 [facility] (Rec: 06/14/18 13:07 [facility] [id number]) Subjective Physical Therapy Visit Type Type Initial Evaluation Visit Start Time 10:50 Visit Stop Time 11:25 Total Visit Minutes 35 Notes R sided facial drooping and weakness noted at home prior to coming to the ER. MRI showed an acute CVA, likely embolic in the [place]. Number of SUPERVISOR ELECTRONICS PROCESSING Visits 0 Physical Therapy Visit Comments Patient Comments pt willing to participate in therapy today. Short Term Goals would like to be able to get the pt back home, possibly even a personal CG. Therapy Pain Assessment Location Lower Back Scale Used does not rate. M4 PT-IP Mobility and Gait Start: 07/28/18 15:46 Freq: NEEDED Status: Active Protocol: Document 06/14/18 11:25 [facility] (Rec: 06/14/18 13:07 [facility] [id number]) PT-Bed Mobility Assessment Supine to Sit Supine to Sit Maximum Assistance 1 Person Assistance Scooting Scooting to Edge of Bed Maximum Assistance PT-Transfer Assessment Equipment Transfer Assistive Device Mechanical Lift Transfers Transfer Destination Chair Transfer Technique Power [id number] Transfer Ability Level of Assist Total Assistance 2 Person Assistance Comments Mobility Comments Pt initially with Min A to sit on EOB, but fatigued after sitting 30 sec, then requiring Mod/Max A to sit and maintain neutral. Not safe to transfer manually given the level of assistance required to balance in sitting. Power sit to stand used to transfer pt to the chair- flexed posture, forward head, manual and tactile cuing for more upright positioning. PT-Balance Assessment Sitting Balance and Reactions Static Sitting Balance Ability Poor Dynamic Sitting Balance Ability Poor M5 PT-IP Objective Assessments Start: 06/13/18 15:46 Freq: NEEDED Status: Active Protocol: Document 06/14/18 11:25 [facility] (Rec: 06/14/18 13:07 [facility] [id number]) Orientation Orientation/Cognition Level of Alertness Alert Comments answers yes/no but no further verbal communication. Gross Range of Motion Upper Extremity ROM Assessment Right Impaired Impairments impaired active R shoulder flexion to 90 deg, unable to touch top of head with R hand. L WNL Lower Extremity ROM Assessment Right Impaired Impairments impaired R hip, knee and ankle AROM, flaccidity in RLE mild Strength Upper Extremity Strength Assessment Bilaterally Impaired Shoulder L flexion 3+/5 Elbow L flexion and extension 3+/5, R flexion 3/5 and extension 2+ /5 Lower Extremity Strength Assessment Bilaterally Impaired Hip L flexion 3/5, R flexion 1/5 Knee L flexion and extension 3+/5, R flex/extension 1/5 Ankle L DF 3/5, R DF 1/5 Coordination Assessment Gross Coordination Gross Coordination Impaired Assessment Finger to Nose Test Severe Impairment Heel on [place] Test Severe Impairment Coordination Comments impaired R UE and LE coordination Sensation Assessment Comments Sensation Comments unable to assess Muscle Tone Muscle Tone WNL No Comments Muscle Tone Comments mild flacidity RUE and LE M6 PT-IP Treatment Start: 06/13/18 15:46 Freq: NEEDED Status: Active Protocol: Document 06/14/18 11:25 [facility] (Rec: 06/14/18 13:07 [facility] [id number]) Physical Therapy Treatment Exercises Exercises Heel Slides Short Arc Quads Other Treatments Other Treatment Performed education on seated marching, SAQ and/or heel slides seated with towel under R foot M7 PT-IP Assessment and Plan Start: 06/13/18 15:46 Freq: NEEDED Status: Active Protocol: Document 06/14/18 11:25 [facility] (Rec: 06/14/18 13:07 [facility] [id number]) PT Summary Assessment and Plan Potential Rehabilitation Potential Good Status of Condition at Evaluation Unstable Summary Impairments ROM Strength Balance Coordination Tone Cognition Bed Mobility Transfers Gait Activity Tolerance Assessment Summary Pt unable to sit without manual support this session, and fatigues rapidly sitting on EOB. He was not safe to manually transfer today given the level of assistance required to maintain sitting position. Pt appears motivated and has a supportive spouse. Pt is not safe to return home this date. would prefer to have pt d/c home, even willing to look into private CG. They may need a manisha or Power sit to stand if pt is to return home, but he would require heavy and constant assistance given his level of impairments at this time. Pt would benefit from SNF rehabilitation upon d/c for daily therapy (PT, OT, and BEVERAGE HOST ), at this time he likely would not tolerate 3 hrs of therapy per day. Recommendation would be SNF rehab., if tolerance improves and able to manually transfer, then pt possibly could d/c home with and private CG but he is not close to this level at time of this evaluation. Goals Bed Mobility Goal Minimal Assistance Transfer Goal Minimal Assistance Front Wheeled Walker Gait Goal Minimal Assistance Gait Distance 15 Days to Meet Goals 5 Frequency of Treatment Frequency Of Treatment Twice a Day Treatment Plan Physical Therapy Treatment Plan Bed Mobility Training Transfer Training Gait Training Therapeutic Exercise Balance Retraining Discharge Planning Neuromuscular Re-ed Coordination Retraining Manual Therapy Other Recommendations and Next Treatment transfers with progression Focus toward manual vs. power stander, thera ex, tone management/ROM/positioning. Recommendations To Nursing Amount of Assist Needed 2 Person Assist Power Sit-Stand Discharge Recommendations PT Discharge Recommendations SNF Rehab Equipment Needed for Home Before ramp built in and manisha or Discharge power stander if pt is to return home, as well as 09/06 assist and private CG
--- NOTE | 2018-06-14 12:55 | PC.NURSE ---
Day shift: Call from ICU regarding Afib w/ variance at approx 1240. Checked Pt and he is asymptomatic. Pt has spouse in room as well as friends from out of town. Pt sitting up in chair. No s/s of distress.
--- NOTE | 2018-06-14 14:35 | PT.IPTN ---
Current Diagnoses Cerebral infarction, unspecified (06/12/18) Physical Therapy Treatment Note M2 PT-IP Current Condition Start: 06/13/18 15:46 Freq: NEEDED Status: Active Protocol: Document 06/14/18 11:25 [facility] (Rec: 06/14/18 13:07 [facility] [id number]) Physical Therapy Current Condition Current Condition Evaluation Date 06/14/18 Treatment Diagnosis acute CVA, impaired mobility Onset Date 06/12/18 M3 PT-IP Subjective Start: 06/13/18 15:46 Freq: NEEDED Status: Active Protocol: Document 06/14/18 14:35 [facility] (Rec: 06/14/18 15:06 [facility] [id number]) Subjective Physical Therapy Visit Type Type Treatment Note Visit Start Time 14:00 Visit Stop Time 14:35 Total Visit Minutes 35 Notes DEVULCANIZER TENDER assisted with pericare Number of BRAZER INDUCTION Visits 0 Physical Therapy Visit Comments Patient Comments Pt admits he is fatigued, states yes and nods head when asked M4 PT-IP Mobility and Gait Start: 06/13/18 15:46 Freq: NEEDED Status: Active Protocol: Document 06/14/18 14:35 [facility] (Rec: 06/14/18 15:06 [facility] [id number]) PT-Bed Mobility Assessment Sit to Supine Sit to Supine Maximum Assistance 2 Person Assistance PT-Transfer Assessment Sit to and From Stand Sit to and from Stand Total Assistance Equipment Transfer Assistive Device Mechanical Lift Transfers Transfer Destination Bed Bedside Commode Transfer Technique Power Stander Transfer Ability Level of Assist Total Assistance 2 Person Assistance Comments Mobility Comments Power sit to stand machine utilized. PT-Balance Assessment Sitting Balance and Reactions Static Sitting Balance Ability Fair Dynamic Sitting Balance Ability Poor M5 PT-IP Objective Assessments Start: 06/13/18 15:46 Freq: NEEDED Status: Active Protocol: Document 06/14/18 14:35 [facility] (Rec: 06/14/18 15:06 [facility] [id number]) Other Assessments Other Other Assessments Mild redness to mid-back, massaged and wiped with warm/ damp cloth. M6 PT-IP Treatment Start: 06/13/18 15:46 Freq: NEEDED Status: Active Protocol: Document 06/14/18 11:25 [facility] (Rec: 06/14/18 13:07 [facility] [id number]) Physical Therapy Treatment Exercises Exercises Heel Slides Short Arc Quads Other Treatments Other Treatment Performed education on seated marching, SAQ and/or heel slides seated with towel under R foot M7 PT-IP Assessment and Plan Start: 06/13/18 15:46 Freq: NEEDED Status: Active Protocol: Document 06/14/18 14:35 [facility] (Rec: 06/14/18 15:06 [facility] [id number]) PT Summary Assessment and Plan Summary Assessment Summary Pt able to stand once with max effort standing with Power stander to achieve <10 degrees of knee flexion bilaterally. He is not strong enough to transfer with manual assistance. Pt is still not safe to be able to d/c home when medically stable at this time. Goals Bed Mobility Goal Minimal Assistance Transfer Goal Minimal Assistance Front Wheeled Walker Gait Goal Minimal Assistance Gait Distance 15 Days to Meet Goals 5 Frequency of Treatment Frequency Of Treatment Twice a Day Treatment Plan Other Recommendations and Next Treatment transfers with progression Focus toward manual vs. power stander, thera ex, tone management/ROM/positioning. Recommendations To Nursing Amount of Assist Needed 2 Person Assist Power Sit-Stand Discharge Recommendations PT Discharge Recommendations SNF Rehab Equipment Needed for Home Before ramp built in and manisha or Discharge power stander if pt is to return home, as well as 09/06 assist and private CG
--- NOTE | 2018-06-14 15:17 | CM.DPC ---
DCP/continued: Received verbal referral from therapy indicating SNF recommended for rehab at time of d/c. Per Ildefonso, from therapy patient requiring two person assist to get from bed to chair. Ildefonso does not believe inpatient acute rehab appropriate at this time. DISTRICT BRANCH MANAGER attempted to meet with patient and spouse to discuss d/c planning options. Patient in the middle of patient care with EXECUTIVE CHAIRMAN. Notified staff that DISTRICT BRANCH MANAGER would check back when appropriate to do so. Spoke with Dr. Fish and she reports that spouse is planning to take patient home with paid caregivers. Patient requiring max assist at this time and most likely will need electric lift chair to get in/out of bed or some type of lift. P: CM team to follow closely and touch base with patient and spouse re: safe d/c plan on Friday/June 15. TAE Mitchell
[2018-06-14] MEDS: LATANOPROST 0.005% OPHTH 2.5 ML 1 DROPS EYE-BOTH (20:06)
[2018-06-14] MEDS: ATORVASTATIN 20 MG TABLET 40 MG PO (20:06)
[2018-06-15] VITALS (10 sets, daily range): BP systolic 129–159; BP diastolic 65–94; PULSE 78–89; RESP 15–20; TEMP 36.4–37.1; O2SAT 95–99
--- NOTE | 2018-06-15 00:43 | PC.NURSE ---
Pt. tired & sleepy did not performed any NIH assessment, checked brief still dry. Repositioned to his Rt. side & no C/O pain or discomfort noted. Will monitor.
[2018-06-15] MEDS: METFORMIN HCL 500 MG TABLET 1000 MG PO ×2 (08:35→18:02)
[2018-06-15] MEDS: ASPIRIN EC 81 MG TABLET PO (08:35)
[2018-06-15] MEDS: APIXABAN 5 MG TABLET 2.5 MG PO ×2 (08:35→20:04)
[2018-06-15] MEDS: METOPROLOL ER 50 MG TABLET 150 MG PO (08:36)
[2018-06-15] MEDS: LOSARTAN 50 MG TABLET PO (08:36)
[2018-06-15] MEDS: SODIUM CHLORIDE 0.9% FLUSH 10 ML IV ×2 (08:39→20:04)
--- NOTE | 2018-06-15 11:37 | PT.IPTN ---
Current Diagnoses Cerebral infarction, unspecified (06/12/18) Physical Therapy Treatment Note M2 PT-IP Current Condition Start: 06/13/18 15:46 Freq: NEEDED Status: Active Protocol: Document 06/14/18 11:25 RCC (Rec: 06/14/18 13:07 RCC [id number]) Physical Therapy Current Condition Current Condition Evaluation Date 06/14/18 Treatment Diagnosis acute CVA, impaired mobility Onset Date 06/12/18 M3 PT-IP Subjective Start: 06/13/18 15:46 Freq: NEEDED Status: Active Protocol: Document 06/15/18 11:37 MDD (Rec: 06/15/18 12:26 MDD [id number]) Subjective Physical Therapy Visit Type Type Treatment Note Visit Start Time 11:04 Visit Stop Time 11:37 Total Visit Minutes 33 Number of SALES REPRESENTATIVE PUBLICATIONS Visits 0 Physical Therapy Visit Comments Patient Comments Pt nods his head in agreement to attempt sitting EOB with PT /OT today. Therapy Pain Assessment Pain Present Pain Present Denied Pain M4 PT-IP Mobility and Gait Start: 06/13/18 15:46 Freq: NEEDED Status: Active Protocol: Document 06/14/18 14:35 RCC (Rec: 06/14/18 15:06 [facility] [id number]) PT-Bed Mobility Assessment Sit to Supine Sit to Supine Maximum Assistance 2 Person Assistance PT-Transfer Assessment Sit to and From Stand Sit to and from Stand Total Assistance Equipment Transfer Assistive Device Mechanical Lift Transfers Transfer Destination Bed Bedside Commode Transfer Technique Power Stander Transfer Ability Level of Assist Total Assistance 2 Person Assistance Comments Mobility Comments Power sit to stand machine utilized. PT-Balance Assessment Sitting Balance and Reactions Static Sitting Balance Ability Fair Dynamic Sitting Balance Ability Poor M5 PT-IP Objective Assessments Start: 06/13/18 15:46 Freq: NEEDED Status: Active Protocol: Document 06/14/18 14:35 RCC (Rec: 06/14/18 15:06 [facility] [id number]) Other Assessments Other Other Assessments Mild redness to mid-back, massaged and wiped with warm/ damp cloth. M6 PT-IP Treatment Start: 06/13/18 15:46 Freq: NEEDED Status: Active Protocol: Document 06/15/18 11:37 MDD (Rec: 06/15/18 12:26 MDD [id number]) Physical Therapy Treatment Exercises Exercises Ankle Pumps Heel Slides Other Treatments Other Treatment Performed Attempt at ankle pumps, heel slides. Trace contraction R ankle dorsiflexors, 2/5 Left. Pt with difficulty initiating movements. Bed mobility - rolling side to side max A x2. Heavy cues for hand and leg positioning etc. Supine to sit max A x2. Min A x 1 for maintaining upright at EOB. L sidebend stretching propping on L UE. Max A x1 for scooting forward to EOB. Performed transfer from bed to chair with standing frame - pt able to hold on w/ B hands. M7 PT-IP Assessment and Plan Start: 06/13/18 15:46 Freq: NEEDED Status: Active Protocol: Document 06/15/18 11:37 MDD (Rec: 06/15/18 12:26 MDD [id number]) PT Summary Assessment and Plan Potential Rehabilitation Potential Good Status of Condition at Evaluation Evolving Summary Impairments Strength Balance Bed Mobility Transfers Gait Activity Tolerance Progress Towards Goals Slow Progress due to Activity Tolerance Assessment Summary Pt demonstrates significant LE weakness requiring max A x2 for bed mobility and sitting EOB. Did not attempt standing today due to significant weakness. Goals Bed Mobility Goal Minimal Assistance Transfer Goal Minimal Assistance Front Wheeled Walker Gait Goal Minimal Assistance Gait Distance 15 Days to Meet Goals 5 Frequency of Treatment Frequency Of Treatment Twice a Day Treatment Plan Physical Therapy Treatment Plan Bed Mobility Training Transfer Training Gait Training Therapeutic Exercise Balance Retraining Discharge Planning Neuromuscular Re-ed Coordination Retraining Manual Therapy Other Recommendations and Next Treatment transfers with progression Focus toward manual vs. power stander, thera ex, tone management/ROM/positioning. Recommendations To Nursing Amount of Assist Needed 2 Person Assist Power Sit-Stand Discharge Recommendations PT Discharge Recommendations SNF Rehab Equipment Needed for Home Before ramp built in and manisha or Discharge power stander if pt is to return home, as well as 09/06 assist and private CG
--- NOTE | 2018-06-15 12:59 | OT.IP.EVAL ---
Current Diagnoses Cerebral infarction, unspecified (06/12/18) Past Medical History (Last Reviewed 06/13/18 @ 14:50 by Nati Fish MD) Dementia (Acute) Frequent falls (Acute) History of TIAs (Acute) Occupational Therapy Inpatient Evaluation/Re-Eval M1 PT/OT-IP Prior Functional Status Start: 06/13/18 15:28 Freq: NEEDED Status: Active Protocol: Document 06/15/18 11:37 MDD (Rec: 06/15/18 12:26 MDD [id number]) Medical Review Prior Functional Status Medical History Reviewed Yes Mobility and Gait pt was receiving physical therapy for months working on his mobility, he was walking with a SPC or no device then was discharged by home health just prior to this hospitalization Social History Household Members spouse Living Arrangements House Number of Floors (Floors) One Floor Number of Stairs To Enter/Railing? 4 SE B wide rails (can only use 1 @ a time) Home Environment High Toilet Walk in Shower Home Equipment Front Wheel Walker Four Wheel Walker Straight Cane Shower Seat with Backrest Employment Status Retired Additional Social History Comment notes that weakness started earlier this past week , he fell to the floor when sitting on EOB. M1 PT/OT-IP Prior Functional Status Start: 06/13/18 15:46 Freq: NEEDED Status: Active Protocol: Document 06/15/18 12:26 CCC (Rec: 06/15/18 12:58 [facility] [id number]) Medical Review Prior Functional Status Medical History Reviewed Yes Mobility and Gait pt was receiving physical therapy for months working on his mobility, he was walking with a SPC or no device then was discharged by home health just prior to this hospitalization Activities of Daily Living and IADL's Per prior to recent fall, states has to assist with toileting, dressing, bathing needs at home for pt. Social History Household Members spouse Living Arrangements House Number of Floors (Floors) One Floor Number of Stairs To Enter/Railing? 4 SE B wide rails (can only use 1 @ a time) Home Environment High Toilet Walk in Shower Home Equipment Front Wheel Walker Four Wheel Walker Straight Cane Shower Seat with Backrest Employment Status Retired Additional Social History Comment notes that weakness started earlier this past week , he fell to the floor when sitting on EOB. M2 OT-IP Current Condition Start: 06/13/18 15:28 Freq: Status: Active Protocol: Document 06/15/18 12:26 [facility] (Rec: 06/15/18 12:58 [facility] [id number]) Occupational Therapy Current Condition Current Condition Evaluation Date 06/15/18 Treatment Diagnosis Possible acute CVA and CHF exacerbation Diagnosis Onset Date 06/12/18 Weight Bearing Status Weight Bearing Status Weight Bear as Tolerated M3 OT- IP Subjective and Pain Start: 06/13/18 15:28 Freq: Status: Active Protocol: Document 06/15/18 12:26 [facility] (Rec: 06/15/18 12:58 [facility] [id number]) OT- Subjective Occupational Therapy Visit Type Type Initial Evaluation Visit Start Time 11:00 Visit Stop Time 12:05 Total Visit Minutes 65 Occupational Therapy Visit Comments Patient Comments Pt agreeable to get up. Patient/Caregiver Goals Pt's wanting to take pt home when medically stable. OT Pain Assessment Pain When Pain Assessed At Rest Pain Present Pain Present Denied Pain M4 OT- IP ADL's Start: 06/13/18 15:28 Freq: Status: Active Protocol: Document 06/15/18 12:26 [facility] (Rec: 06/15/18 12:58 [facility] [id number]) OT [id number] General Evaluation Diet Level for Self-Feeding Mechanical soft/thin liquids Self-Feeding Ability Moderate Assistance Areas Needing Assistance Cutting Food Opening Containers Comments OT Self-Feeding Comments Pt able to self feed with spoon for soup, however getting tired and will need assist to complete task. Noted pt coughing during his meal and TURN SEWER notified. Pt may benefit from larger handled or foam tourist camp attendant for utensil, to continue to assess for needs. Pt's right arm propped on the pillow for support. OT ADL-Grooming General Evaluation Grooming Ability Maximum Assistance Areas Needing Assistance Retrieving/Set-up of Grooming Items Combing/Brushing Hair Face Washing Comments OT Grooming Comments Pt able to wash his face but needing assist to reach for the top of his forehead and ears. Pt able to wash his hands after set-up of wash cloth. Initially assisting with grooming needs and encouraged her to let pt try first before assisting. OT ADL-Dressing General Eval Upper Body Dressing Ability Maximum Assistance Lower Body Dressing Ability Total Assistance Areas Needing Assistance Retrieving/Set-up of Clothing Underpants/Brief Socks Comments OT Dressing Comments Pt needing extensive assist for all dressing needs due to weakness for RUE and the ability to follow directions. OT ADL-Toileting General Evaluation Toileting Ability Total Assistance Areas Needing Assistance Manage Clothing Perform Perineal Hygiene Comments OT Toileting Comments Pt incontinent. Nursing talking to pt's regarding possible use for catheter. M6 OT- IP Functional Cognition Start: 06/13/18 15:28 Freq: Status: Active Protocol: Document 06/15/18 12:26 [facility] (Rec: 06/15/18 12:58 [facility] [id number]) Cognitive Factors Limiting Selfcare Function Cognitive Ability Level of Alertness Alert Patient Orientation Name Attention Span Ability Capable of Focused Attention Capable of Sustained Attention Unable to Sustain Attention Ability to Follow Commands Able to Follow One Step Commands with Increased Time Able to Follow One Step Commands with Repetition Memory Description Short Term Impaired Snf Impaired Safety Awareness Underestimates Need for Assistance Cognitive Comments Cognitive Assessment Comments Pt needing step by step commands to follow directions, and needing increased time to follow commands and vc to initiate at times. Pt's at times will translate verbal directions into Farsi which pt seems to understand better. OT- Vision and Hearing OT- Vision Assessment Vision Assessment Comments Pt able to scan for his in the room. M7 OT- IP Mobility and Balance Start: 06/13/18 15:28 Freq: Status: Active Protocol: Document 06/15/18 12:26 [facility] (Rec: 06/15/18 12:58 [facility] [id number]) OT- Bed Mobility Assessment Rolling Type of Rolling Roll to Right Level of Assistance Maximum Assistance 2 Person Assistance Supine to Sit Supine to Sit Assist Maximum Assistance 2 Person Assistance Scooting Scooting to Edge of Bed Maximum Assistance 2 Person Assistance Scooting Up and Down in Bed Maximum Assistance 2 Person Assistance OT-Transfer Assessment Sit to and From Stand Sit to and from Stand Total Assistance 2 Person Assistance Transfers Transfer Ability Total Assistance 2 Person Assistance Technique Transfer Destination Chair Transfer Technique Mechanical Lift Devices Transfer Assistive Devices Mechanical Lift Comments Mobility Comments Use of power sit to stand due to decreased balance, ability to move RLE. Pt tends to lean into postetior and right pelvic tilt. OT- Balance Assessment Sitting Balance and Reactions Static Sitting Balance Ability Poor Dynamic Sitting Balance Ability Poor M8 OT- IP Objective Assessments Start: 06/13/18 15:28 Freq: Status: Active Protocol: Document 06/15/18 12:26 [facility] (Rec: 06/15/18 12:58 [facility] [id number]) OT Strength Comments Strength Comments RUE 0-90 AROM with elbow flexed, therfore 3-/5 and LUE grossly WFL for needs. Pt able to coordinate right hand to use a spoon and get to his mouth with head flexed. M9 OT- IP Assessment and Plan Start: 06/13/18 15:28 Freq: Status: Active Protocol: Document 06/15/18 12:26 [facility] (Rec: 06/15/18 12:58 [facility] [id number]) OT Summary Assessment and Plan Potential Rehabilitation Potential Good Analytic Complexity at Evaluation Moderate Summary OT Impairments Strength Balance Coordination Functional Cognition Functional Mobility Self-Feeding Grooming Dressing Toileting Bathing Toilet Transfers Shower Transfers Progress Towards Goals Slow Progress due to Medical Issues Slow Progress due to Activity Tolerance Slow Progress due to Cognition Assessment Summary Pt MOD complexity now needing extensive assist for two person and use of power sit to stand to transfer. Pt RUE weaker now and not able to assist for bed mobility and transfer needs. Pt has poor balance and very fearful of falling at this time. Pt having difficulty to follow directions, initiate movements and get the words out. Pt would benefit from skilled rehab at this time. Goals Self-Feeding Goal Standby Assistance Grooming Goal Minimal Assistance Dressing Goal Minimal Assistance Toileting Goal Moderate Assistance Toilet Transfer Goal Moderate Assistance Bedside Commode Patient/Caregiver Education Goal Caregiver Independent Assisting Patient Days to Meet Goals 7 Frequency of Treatment Frequency Of Treatment Once a Day Treatment Plan OT Treatment Plan ADL Training Functional Cognition Training Functional Mobility Neuromuscular Re-education Patient/Family Education Discharge Planning Other Treatment Recommendations and Next Family training for for Treatment Focus AED needs, positioning, encuring pt to do for himself, and grooming/eating. Discharge Recommendations OT Discharge Recommendations SNF Rehab Other Discharge Recommendations If insisting on pt going home, pt will need / assist , hired caregiver, and home health. Home Equipment Needs BSC, rolling shower chair, power sit to stander, hospital bed, ramp
--- NOTE | 2018-06-15 13:00 | ST.IPDYTX ---
POWER PRESS OPERATOR Dysphagia Treatment POWER PRESS OPERATOR Dysphagia Treatment Start: 06/13/18 15:11 Freq: Status: Active Protocol: Document 06/15/18 12:57 [facility] (Rec: 06/15/18 13:08 [facility] [id number]) Dysphagia Treatment Session Time Visit Start Time 12:10 Visit Stop Time 12:45 Total Visit Minutes 35 Setting Assessment Location Acute Care Visit Type Note Type Treatment Note Next Note Type Next Note Type Treatment Note Patient Information Identification Type Name ID Wristband Subjective Observations Patient was awake, but tired, sitting upright in chair with present. OT just finished with patient. Care Managment, Hafsa, present to speak with about D/C plans. POWER PRESS OPERATOR assisted patient with lunch. No complaints of pain pre/post treatment. Patient did present with slow, slightly slurred speech. He stated that his speech was slow and that he had trouble getting his words out. He agreed to participate in a speech evaluation at a later time. Spoke with nursing prior to initiation of treatment. His nurse informed POWER PRESS OPERATOR that the patient's NIH scale was 8 upon admission, but it was 12 today. Treatment Liquids Trialed Thin [place] Solids Trialed Dysphagia Mechanical Mechanical Soft Administration Type Cup Single Sip Controlled Cup Sip Cup Consecutive Sips Dependent Feeding Oral Strategies Upright at 90 degrees Double Swallow Dry Spoon Controlled Bite/Sip Size Alternate Liquids/Solids Pharyngeal Strategies Sitting Upright (90 deg) Double Swallow Effortful Swallow Small Bites and Sips Alternate Liquids/Solids Additional Dysphagia Treatment Throat clear, double swallow Strategies Treatment Activities Trials of soup with soft vegetables and pasta with nectar thick tomato juice and water. Patient independent in feeding himself, but he was very slow and often dropped food from spoon or his mouth. Patient able to masticate soft solids from soup, but demonstrated a delayed swallow response when ready to swallow. Obsereved immediate, wet cough after spoon of soup. With slow, small cup sips of thin followed by immediate throat clear and double swallow, he presented with an almost immediate, audible swallow response, but clear voicing and no cough. However, after third trial of thin liquid via cup, significnat cough response present. No cough response observed with slow, intentional sips of nectar thick tomato juice with throat clear and double swallow. Swallow initiation time was improved with nectar thick liquids as well. Patient improved in tolerance of soup after POWER PRESS OPERATOR asked to drain broth from soup. Patient able to tolerate dry, soft vegetables and pasta without liquids. No difficulty observed. No overt s/s of aspiration observed with trials of soft solds. Patient is very slow in all movements. Suspect delayed swallow initiation, which may be contributing to his coughing response with thin liquids. Recommend diet/liquid downgrade. did state that the patient has a chronic throat clear and wet vocal quality. He does not have a history of developing pneumonia. However, in the past five days, she did note that his throat clear has turned into a wet cough, which is unusual. Assessment Patient Response to Treatment Good Rehab Potential Good Assessment of Improvement Patient has declined in tolerance of thin liquids. His slow response time is contributing to his difficulty tolerating his current diet. Observed overt s/s of aspiration with thin liquids, but consistent tolerance of nectar thick liquids without difficulty. Due to the patient 's decline in status (NIH of 12 v. 8 upon admission) recommend diet downgrade for safety. [place] thick liquids, single sips, dysphagia mechanical textures. Medication in carrier. 1:1 assistance with meals to reinforce strategies. Diet Recommendations Recommendations Downgrade Liquid Order Liquids Order [place] Diet Order Dysphagia Mechanical Medication Recommendations Whole in Carrier Additional Dietary Needs No Straws 1:1 Assistance Reminders to Use Strategies Aspiration Precautions Recommended Precautions Upright at 90 Degrees Alternate Liquids/Solids Frequent Rest Periods Small Bites/Sips Effortful Swallow Double Swallow Check for Pocketing Liquids from Cup Treatment Plan Placement Recommendation after Discharge Snf Facility Appropriate for Continued Therapy Yes Therapy Recommendations Swallowing therapy for diet tolerance and familp patient education 1:1 supervision with meals Throat clear/double swallow throughout meal to reduce pharyngeal residue. Upright at 90 degrees for all intake. Medication in carrier. Dysphagia Goals Diet monitor for safety with adustments as indicated The pt will safely tolrate the least resrticive diet without s/sx aspiration. Patient/family education re: safe swallowing strategies Patient will participate in a speech evaluation, when able, to determine expressive/ receptive communication ability.
--- NOTE | 2018-06-15 13:20 | ST.IPDYTX ---
HEEL ROOM SUPERVISOR Dysphagia Treatment HEEL ROOM SUPERVISOR Dysphagia Treatment Start: 06/13/18 15:11 Freq: Status: Active Protocol: Document 06/15/18 12:57 [facility] (Rec: 06/15/18 13:08 [facility] [id number]) Dysphagia Treatment Session Time Visit Start Time 12:10 Visit Stop Time 12:45 Total Visit Minutes 35 Setting Assessment Location Acute Care Visit Type Note Type Treatment Note Next Note Type Next Note Type Treatment Note Patient Information Identification Type Name ID Wristband Subjective Observations Patient was awake, but tired, sitting upright in chair with present. OT just finished with patient. Care Managment, Hafsa, present to speak with about D/C plans. HEEL ROOM SUPERVISOR assisted patient with lunch. No complaints of pain pre/post treatment. Patient did present with slow, slightly slurred speech. He stated that his speech was slow and that he had trouble getting his words out. He agreed to participate in a speech evaluation at a later time. Spoke with nursing prior to initiation of treatment. His nurse informed HEEL ROOM SUPERVISOR that the patient's NIH scale was 8 upon admission, but it was 12 today. Treatment Liquids Trialed Thin [place] Solids Trialed Dysphagia Mechanical Mechanical Soft Administration Type Cup Single Sip Controlled Cup Sip Cup Consecutive Sips Dependent Feeding Oral Strategies Upright at 90 degrees Double Swallow Dry Spoon Controlled Bite/Sip Size Alternate Liquids/Solids Pharyngeal Strategies Sitting Upright (90 deg) Double Swallow Effortful Swallow Small Bites and Sips Alternate Liquids/Solids Additional Dysphagia Treatment Throat clear, double swallow Strategies Treatment Activities Trials of soup with soft vegetables and pasta with nectar thick tomato juice and water. Patient independent in feeding himself, but he was very slow and often dropped food from spoon or his mouth. Patient able to masticate soft solids from soup, but demonstrated a delayed swallow response when ready to swallow. Obsereved immediate, wet cough after spoon of soup. With slow, small cup sips of thin followed by immediate throat clear and double swallow, he presented with an almost immediate, audible swallow response, but clear voicing and no cough. However, after third trial of thin liquid via cup, significnat cough response present. No cough response observed with slow, intentional sips of nectar thick tomato juice with throat clear and double swallow. Swallow initiation time was improved with nectar thick liquids as well. Patient improved in tolerance of soup after HEEL ROOM SUPERVISOR asked to drain broth from soup. Patient able to tolerate dry, soft vegetables and pasta without liquids. No difficulty observed. No overt s/s of aspiration observed with trials of soft solds. Patient is very slow in all movements. Suspect delayed swallow initiation, which may be contributing to his coughing response with thin liquids. Recommend diet/liquid downgrade. did state that the patient has a chronic throat clear and wet vocal quality. He does not have a history of developing pneumonia. However, in the past five days, she did note that his throat clear has turned into a wet cough, which is unusual. Assessment Patient Response to Treatment Good Rehab Potential Good Assessment of Improvement Patient has declined in tolerance of thin liquids. His slow response time is contributing to his difficulty tolerating his current diet. Observed overt s/s of aspiration with thin liquids, but consistent tolerance of nectar thick liquids without difficulty. Due to the patient 's decline in status (NIH of 12 v. 8 upon admission) recommend diet downgrade for safety. [place] thick liquids, single sips, dysphagia mechanical textures. Medication in carrier. 1:1 assistance with meals to reinforce strategies. Diet Recommendations Recommendations Downgrade Liquid Order Liquids Order [place] Diet Order Dysphagia Mechanical Medication Recommendations Whole in Carrier Additional Dietary Needs No Straws 1:1 Assistance Reminders to Use Strategies Aspiration Precautions Recommended Precautions Upright at 90 Degrees Alternate Liquids/Solids Frequent Rest Periods Small Bites/Sips Effortful Swallow Double Swallow Check for Pocketing Liquids from Cup Treatment Plan Placement Recommendation after Discharge Intermediate Facility Appropriate for Continued Therapy Yes Therapy Recommendations Swallowing therapy for diet tolerance and familp patient education 1:1 supervision with meals Throat clear/double swallow throughout meal to reduce pharyngeal residue. Upright at 90 degrees for all intake. Medication in carrier. Dysphagia Goals Diet monitor for safety with adustments as indicated The pt will safely tolrate the least resrticive diet without s/sx aspiration. Patient/family education re: safe swallowing strategies Patient will participate in a speech evaluation, when able, to determine expressive/ receptive communication ability.
--- NOTE | 2018-06-15 14:35 | DI.RAD.S_ITS ---
PROCEDURE: XR CHEST 1V INDICATIONS: Increased cough with swallow TECHNIQUE: One view of the chest was acquired. COMPARISON: [facility], , XR CHEST 1V, 06/12/2018, 19:16. FINDINGS: Surgical changes and devices: None. Lungs and pleura: No pleural effusions or pneumothorax. Lungs are clear. Mediastinum: Mediastinal contours appear normal. Heart size is enlarged, as before. Bones and chest wall: No suspicious bony lesions. Overlying soft tissues appear unremarkable. IMPRESSION: No focal pulmonary opacities to suggest aspiration. Stable cardiomegaly. Dictated by: Laine Hopkins M.D. on 06/15/2018 at 15:48 Approved by: Laine Hopkins M.D. on 06/15/2018 at 15:48
--- NOTE | 2018-06-15 15:15 | CM.DPC ---
DCP/continued: Reviewed chart. Spoke with therapy this AM and recommendation continues to be for patient to go to SNF upon d[facility]c from [facility] Notes reports that spouse would like to take patient home. Patient currently 2 person max assist. EMERGENCY RESPONSE TECHNICIAN met with patient and spouse/Thornton at bedside explained CM/SW role. Patient in process of working with speech therapy at time of visit. EMERGENCY RESPONSE TECHNICIAN spoke with spouse and she reports that she would like to take patient home but is also very aware that the residence is not safely prepared for his return. Prior to admit, spouse reports that patient ambulating with walker/cane. Patient had [facility] for approximately 6 months for therapy from previous CVA (October 2017). Spouse indicates that HH was discontinued about 2 weeks ago. Spouse very happy with [facility] and would use them again if needed. EMERGENCY RESPONSE TECHNICIAN discussed all d/c options with spouse. Although somewhat resistant to SNF she is aware that patient most likely will need placement and therapy until she can get their residence safely ready. Spouse interested in facility outside of [place]. Provided spouse with Medicare contracted SNF list. She will review with her family this pm and EMERGENCY RESPONSE TECHNICIAN to f/u on 06-16. P: Pending. Anticipate SNF at time of d/c. TAE Mitchell
--- NOTE | 2018-06-15 17:48 | P.PN_ITS ---
Subjective Date Patient Seen: 06/15/18 Time Patient Seen: 14:45 Interval history: History of present illness Follow-up on patient with a acute versus subacute stroke involving the [place]. Note at this time patient is oriented to self only. Patient on a restricted dysphagia diet with nectar thick liquid being provided. Speech recommended the change in the fluid consistency earlier today. Nursing staff notes earlier today patient with an NIH stroke score of 12. 1. 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 Patient with a history of prior stroke with hemorrhagic conversion. Patient was on Eliquis at 2.5 mg b.i.d. with aspirin 81 mg once daily prior to admission. Review of systems At the present time patient is a unreliable historian. Exam Vital Signs (past 8 hours): - 06/15/18 12:00 06/15/18 15:47 06/15/18 15:54 Temperature 97.6 F 98.5 F Pulse Rate 83 78 Respiratory Rate 16 19 Blood Pressure 129/65 H 136/94 H Pulse Oximetry 97 98 99 Oxygen Delivery Method Room Air Oxygen Flow Rate 0 Const General: healthy appearing, comfortable, No in distress and No anxious Nutritional Appearance: average body habitus and well nourished Orientation: alert, awake and oriented to person Resp Effort & Inspection: normal respiratory effort and no cough Auscultation: clear to auscultation bilaterally, no crackles and no wheezes Cardio Rate: regular rate Rhythm: abnormal rhythm Heart Sounds: S1 normal, no murmurs and no rubs GI Inspection: normal to inspection, no edema and non-distended Palpation: soft and No tender Auscultation: normal bowel sounds Skin General: no rashes or lesions noted and No jaundice Neuro General: alert, awake and oriented (self only) Motor: strength abnormal and other (right sided hemiparesis noted. Right-sided facial weakness.) Objective Labs Result Diagrams: 06/12/18 20:30 06/12/18 20:30 Assessment & Plan Plan: Assessment/Plan Narrative: 1. 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 Continue Eliquis from 2.5 mg twice daily with aspirin 81 mg daily. 2. Type 2 diabetes: Continue metformin. Continue accuchecks qac/qhs with insulin sliding scale prn. 3. Chronic atrial fibrillation: Ventricular rate controlled. Note Eliquis 2.5 mg po bid. Note prior history of stroke with hemorrhagic conversion. Eliquis dose adjusted in view of this prior intracranial bleed. 4. Hypertension: Continue home dose of blood pressure meds losartan 50 mg once daily and Toprol XL 150 mg once daily 5. Hyperlipidemia: Continue atorvastatin 40 mg daily 6. Risk for aspiration: Speech recommended fluid consistency changed to nectar thick liquids. Requested AP portable chest x-ray today and BNP to evaluate for CHF vs aspiration. 7. Possible chronic congestive heart failure: BNP today is pending. AP CXR today is pending. Code status: Do not resuscitate. Post form completed and filed at his primary care clinic. Discharge Planning Discharge home with home health services when he is medically more stable. His is trying to the did his home ready and hiring a personal lines sales rep. Quality VTE Deep Vein Thrombosis/Pulmonary Embolism Present on Admission: Yes
[2018-06-15] MEDS: LATANOPROST 0.005% OPHTH 2.5 ML 1 DROPS EYE-BOTH (20:04)
[2018-06-15] MEDS: ATORVASTATIN 20 MG TABLET 40 MG PO (20:04)
--- NOTE | 2018-06-15 21:41 | PC.NURSE ---
Dr Argueta is oriented to self, place and said I had a stroke. Mostly answers with one word answers. Told me once I am having a hard time speaking. Words are slurred and garbled, sometimes nurse asks patient to repeat words. Can make needs known. Refused SUSTAINABILITY OFFICER to check his blood sugar tonight. here earlier, requesting you do not bother him after he gets his medicine--he needs to sleep. Discussed care plan & Dr orders for VS and telemetry, she said well do what you need to do--he just needs sleep. SUSTAINABILITY OFFICER aware of family request for sleep tonight. Patient denies pain or concerns. Patient's son called and requests that gael MAY call him tomorrow for an update. Adithya's Clarita # [phone].
[2018-06-16] VITALS (7 sets, daily range): BP systolic 119–155; BP diastolic 62–81; PULSE 82–93; RESP 17–19; TEMP 36.4–37.1; O2SAT 96–98
--- NOTE | 2018-06-16 08:27 | PT.IPTN ---
Current Diagnoses Cerebral infarction, unspecified (06/12/18) Physical Therapy Treatment Note M2 PT-IP Current Condition Start: 06/13/18 15:46 Freq: NEEDED Status: Active Protocol: Document 06/14/18 11:25 RCC (Rec: 06/14/18 13:07 RCC [email or web address]) Physical Therapy Current Condition Current Condition Evaluation Date 06/14/18 Treatment Diagnosis acute CVA, impaired mobility Onset Date 06/12/18 M3 PT-IP Subjective Start: 06/13/18 15:46 Freq: NEEDED Status: Active Protocol: Document 06/16/18 08:27 MDD (Rec: 06/16/18 08:45 MDD [email or web address]) Subjective Physical Therapy Visit Type Type Treatment Note Visit Start Time 08:12 Visit Stop Time 08:27 Total Visit Minutes 15 Number of DESIGN PRINTING MACHINE SET UP OPERATOR Visits 0 Physical Therapy Visit Comments Patient Comments Pt agreeable to participate with therapy this day. He is more verbal today, with slurred speech. Therapy Pain Assessment Pain Present Pain Present Denied Pain M4 PT-IP Mobility and Gait Start: 06/13/18 15:46 Freq: NEEDED Status: Active Protocol: Document 06/14/18 14:35 RCC (Rec: 06/14/18 15:06 [facility] [id number]) PT-Bed Mobility Assessment Sit to Supine Sit to Supine Maximum Assistance 2 Person Assistance PT-Transfer Assessment Sit to and From Stand Sit to and from Stand Total Assistance Equipment Transfer Assistive Device Mechanical Lift Transfers Transfer Destination Bed Bedside Commode Transfer Technique Power Stander Transfer Ability Level of Assist Total Assistance 2 Person Assistance Comments Mobility Comments Power sit to stand machine utilized. PT-Balance Assessment Sitting Balance and Reactions Static Sitting Balance Ability Fair Dynamic Sitting Balance Ability Poor M5 PT-IP Objective Assessments Start: 06/13/18 15:46 Freq: NEEDED Status: Active Protocol: Document 06/14/18 14:35 RCC (Rec: 06/14/18 15:06 RCC [id number]) Other Assessments Other Other Assessments Mild redness to mid-back, massaged and wiped with warm/ damp cloth. M6 PT-IP Treatment Start: 06/13/18 15:46 Freq: NEEDED Status: Active Protocol: Document 06/16/18 08:27 MDD (Rec: 06/16/18 08:45 MDD [email or web address]) Physical Therapy Treatment Other Treatments Other Treatment Performed Bed mobility: HOB elevated, mod A x2 for log roll --> Right, supine > sit. Requires mod A x1 to maintain seated EOB due to posterolateral right trunk leaning. Demonstrates improved response to cues with ability to lift both feet into sit to stand lift. Pt able to hold onto handrails with slight R trunk lean when up in stander. M7 PT-IP Assessment and Plan Start: 06/13/18 15:46 Freq: NEEDED Status: Active Protocol: Document 06/16/18 08:27 MDD (Rec: 06/16/18 08:45 MDD [email or web address]) PT Summary Assessment and Plan Potential Rehabilitation Potential Good Status of Condition at Evaluation Evolving Summary Impairments Strength Balance Cognition Bed Mobility Transfers Gait Activity Tolerance Progress Towards Goals Slow Progress due to Medical Issues Assessment Summary Pt with slightly improved response to cues this day, still requires mod A x 2 for bed mobility and to maintain seated. Still not safe to d/c home. Goals Bed Mobility Goal Minimal Assistance Transfer Goal Minimal Assistance Front Wheeled Walker Gait Goal Minimal Assistance Gait Distance 15 Days to Meet Goals 5 Frequency of Treatment Frequency Of Treatment Once a Day Treatment Plan Physical Therapy Treatment Plan Bed Mobility Training Transfer Training Gait Training Therapeutic Exercise Balance Retraining Discharge Planning Neuromuscular Re-ed Coordination Retraining Manual Therapy Other Recommendations and Next Treatment transfers with progression Focus toward manual vs. power stander, thera ex, tone management/ROM/positioning. Recommendations To Nursing Amount of Assist Needed 2 Person Assist Power Sit-Stand Discharge Recommendations PT Discharge Recommendations SNF Rehab Equipment Needed for Home Before ramp built in and manisha or Discharge power stander if pt is to return home, as well as 09/06 assist and private CG
[2018-06-16] MEDS: METFORMIN HCL 500 MG TABLET 1000 MG PO ×2 (08:34→17:56)
[2018-06-16] MEDS: LOSARTAN 50 MG TABLET PO (08:34)
[2018-06-16] MEDS: ASPIRIN EC 81 MG TABLET PO (08:34)
[2018-06-16] MEDS: APIXABAN 5 MG TABLET 2.5 MG PO ×2 (08:34→21:19)
[2018-06-16] MEDS: METOPROLOL ER 50 MG TABLET 150 MG PO (08:34)
[2018-06-16] MEDS: SODIUM CHLORIDE 0.9% FLUSH 10 ML IV ×2 (08:35→21:20)
--- NOTE | 2018-06-16 10:57 | OT.IP.TRT ---
Current Diagnoses Cerebral infarction, unspecified (06/12/18) Occupational Therapy Treatment Note M2 OT-IP Current Condition Start: 06/13/18 15:28 Freq: Status: Active Protocol: Document 06/15/18 12:26 [facility] (Rec: 06/15/18 12:58 [facility] [id number]) Occupational Therapy Current Condition Current Condition Evaluation Date 06/15/18 Treatment Diagnosis Possible acute CVA and CHF exacerbation Diagnosis Onset Date 06/12/18 Weight Bearing Status Weight Bearing Status Weight Bear as Tolerated M3 OT- IP Subjective and Pain Start: 06/13/18 15:28 Freq: Status: Active Protocol: Document 06/16/18 10:57 PJM (Rec: 06/16/18 13:26 PJM [id number]) OT- Subjective Occupational Therapy Visit Type Type Treatment Note Visit Start Time 10:02 Visit Stop Time 10:57 Total Visit Minutes 55 Notes Pt's for education this session Occupational Therapy Visit Comments Patient/Caregiver Goals Pt's would like to take pt home, once ramp installed and appropriate DME obtained. states she is attempting to hire caregiver to assist her once pt returns home. OT Pain Assessment Pain When Pain Assessed After Treatment Pain Present Pain Present Denied Pain M4 OT- IP ADL's Start: 06/13/18 15:28 Freq: Status: Active Protocol: Document 06/16/18 10:57 PJM (Rec: 06/16/18 13:26 PJM [id number]) OT [id number] General Evaluation Self-Feeding Ability Minimal Assistance Comments OT Self-Feeding Comments Pt able to feed self applesauce from cup with good dexterity with R hand. pt needs occasional min assist to load utensil to obtain food from bottom of cup. Pt needs max verbal cues to follow precautions established for S. T. to swallow twice after each bite. Pt needs physical assist to prevent him from taking next bite until he completes second swallow. OT ADL-Toileting Comments OT Toileting Comments Pt's normally changed pt' s brief with pt standing with FWW. Provided education re: need to have pt roll in bed for this task at present. OT ADL-Bathing Comments OT Bathing Comments Provided education re: modifications to shower and possible termite exterminator helper use of roll in shower chair unless pt makes significant progress. M6 OT- IP Functional Cognition Start: 06/13/18 15:28 Freq: Status: Active Protocol: Document 06/16/18 10:57 PJM (Rec: 06/16/18 13:26 PJM [id number]) Cognitive Factors Limiting Selfcare Function Cognitive Ability Level of Alertness Alert Patient Orientation Name Attention Span Ability Capable of Focused Attention Ability to Follow Commands Able to Follow One Step Commands Memory Description Short Term Impaired Safety Awareness Decreased Recall of Precautions Decreased Ability to Apply Precautions Problem Solving Ability Needs Assist to Identify Solutions Cognitive Comments Cognitive Assessment Comments Pt presents with significantly slowed speed of processing. He continued to require max verbal cues to follow swallowing precautions despite repetition of instructions with each bite. OT- Vision and Hearing OT- Hearing Assessment OT- Hearing Assessment WFL M7 OT- IP Mobility and Balance Start: 06/13/18 15:28 Freq: Status: Active Protocol: Document 06/16/18 10:57 PJM (Rec: 06/16/18 13:26 PJ [email or web address]) OT-Transfer Assessment Sit to and From Stand Sit to and from Stand Total Assistance Technique Transfer Destination Bed Devices Transfer Assistive Devices Mechanical Lift Comments Mobility Comments Nursing using sit to stand for transfers from chair to bed. OT- Balance Assessment Sitting Balance and Reactions Static Sitting Balance Ability Fair Comments Other Balance Tests/Deviations/Treatment Pt leaning to right in chair : today; needing max assist to reposition. M8 OT- IP Objective Assessments Start: 06/13/18 15:28 Freq: Status: Active Protocol: Document 06/15/18 12:26 CCC (Rec: 06/15/18 12:58 CCC [email or web address]) OT Strength Comments Strength Comments RUE 0-90 AROM with elbow flexed, therefore 3-/5 and LUE grossly WFL for needs. Pt able to coordinate right hand to use a spoon and get to his mouth with head flexed. M9 OT- IP Assessment and Plan Start: 06/13/18 15:28 Freq: Status: Active Protocol: Document 06/16/18 10:57 PJM (Rec: 06/16/18 13:26 PJM [id number]) OT Summary Assessment and Plan Summary OT Impairments Strength Balance Functional Cognition Functional Mobility Self-Feeding Grooming Dressing Toileting Bathing Toilet Transfers Shower Transfers Assessment Summary Pt able to feed self after set up with good coordination with R hand for utensil use today, but requires repeated max cues to follow swallowing precautions for each bite. able to cue pt appropriately and pt receptive to her cues. Pt currently requires use of mechanical lift for all transfers and significant assist with all self care tasks. Provided extensive family education to re: DME recommendations as her termite exterminator helper goal is to care for pt at home with hired caregiver assist. Home is not w/c accessible at present and pt not safe to return home with at this time due to high care needs and decrease in functional mobility after new stroke. appears to underestimate pt's care needs at times. Recommend SNF at discharge for further rehab to increase independence in functional mobility and self care skills, as well as family education re: pt's care needs , DME use, and home modifications. Goals Self-Feeding Goal Standby Assistance Grooming Goal Minimal Assistance Dressing Goal Minimal Assistance Toileting Goal Moderate Assistance Toilet Transfer Goal Moderate Assistance Bedside Commode Patient/Caregiver Education Goal Caregiver Independent Assisting Patient Days to Meet Goals 7 Frequency of Treatment Frequency Of Treatment Once a Day Treatment Plan OT Treatment Plan ADL Training Functional Cognition Training Functional Mobility Neuromuscular Re-education Patient/Family Education Discharge Planning Discharge Recommendations OT Discharge Recommendations SNF Rehab Other Discharge Recommendations Note pt has to be turned every 2 hrs per RN due to skin breakdown. Home Equipment Needs W/C, rolling shower chair, power sit to stander or manisha lift, hospital bed, ? air overlay mattress due to skin breakdown, ramp; further recommendations to occur in next rehab setting pending pt progress.
--- NOTE | 2018-06-16 11:28 | PC.NURSE ---
Day shift: Pt back to bed facing window and on rt side. PT got Pt up to chair in the AM. Pt having some skin breakdown (dime sized) at coccyx. ACCOUNTING OFFICE MANAGER and this manual writer got him back to bed at approx 1115 and changed his brief and applied 2x2 Al[place]ven to that coccyx. Pt plans to sleep not. Call light in reach. Mech lift was used. Pt tolerated well. Bed alrm on.
--- NOTE | 2018-06-16 11:49 | ST.IPDYTX ---
LENS MOLD SETTER Dysphagia Treatment LENS MOLD SETTER Dysphagia Treatment Start: 06/13/18 15:11 Freq: Status: Active Protocol: Document 06/16/18 10:16 FRIDA (Rec: 06/16/18 10:31 FRIDA [email or web address]) Dysphagia Treatment Session Time Visit Start Time 08:48 Visit Stop Time 09:28 Total Visit Minutes 40 Setting Assessment Location Acute Care Visit Type Note Type Treatment Note Patient Information Identification Type Name ID Wristband Subjective Observations Pt was seen shortly after PT assisted in sitting him up in chair. He was eating breakfast with PLUG SAW OPERATOR present and cuing appropriately for swallow strategies; she reported one cough since start of breakfast intake. Nsg reported pt tolerated morning meds in applesauce carrier w/ no overt s/sx of aspiration. Treatment Liquids Trialed [place] Solids Trialed Dysphagia Mechanical Administration Type Cup Single Sip Self-Feeding Oral Strategies Upright at 90 degrees Double Swallow Lingual Sweep Pharyngeal Strategies Sitting Upright (90 deg) Double Swallow Small Bites and Sips Treatment Activities Assessed swallow safety with dysphagia mechanical solids, NTL at breakfast with use of strategies. Oral Phase: labial sensation present for adequate oral containment managed by pt; slow but adequate oral movements for mastication and bolus preparation. Slow a/p propulsion sometimes greater than 10 sec and need for verbal prompt for swallow initiation. Pt at times appeared distracted and/or forgetful that he had food in his mouth. He redirected well and perfomed swallow with verbal prompts. Minimal oral residue observed. Pt was able to perform lingual sweep and did so both spontaneously and upon verbal prompts. Again, movements were slow but adequate to clear oral cavity. Pharyngeal Phase: Frequent wet voice was observed throughout the meal, which did mostly clear with verbal prompts for pt to perform cough/throat clear + swallow. No other overt s/sx of aspiration were observed. The pt was able to repeat verbal instructions for double swallow after all bites and sips, which was also posted as written cue on his table. He exhibited good hyolaryngeal elevation and excursion. Volitional dry swallows were effortful and required max verbal and occasionally tactile cues with prompts to refrain from next bite until 2nd swallow was complete. The pt's arrived near the end of tx. She was educated and trained in swallow precautions, and she immediately participated in cuing the pt and explaining need for thickened liquids and double swallow, demonstrating excellent understanding and ability to provide supervision with meals and appropriate cues. No thin liquid was trialed today as safety precaution while the pt learns strategies . He did consume NTL orange juice and natural V8 juice with no cough or throat clear response. Assessment Patient Response to Treatment Good Rehab Potential Good Assessment of Improvement The pt is safely tolerating dysphagia mechanical texture and NTL from cup. He is able to verbalize safe swallow strategies but requires mod- max cuing to perform. He continues with frequent wet voice, indicating ongoing risk of aspiration. The pt was alert and attentive to meal and able to follow simple instructions. He is able to feed himself with occasional setup assistance needed. He does require 1:1 supervision with meals with cuing to perform double swallow per bite/sip and monitoring of bite size and oral clearance. Diet Recommendations Recommendations Continue Current Diet Liquids Order [place] Diet Order Dysphagia Mechanical Medication Recommendations Other Comments As tolerated in carrier Additional Dietary Needs Single Sips No Straws 1:1 Supervision 1:1 Assistance Encourage to Self-Feed Reminders to Use Strategies Aspiration Precautions Recommended Precautions Upright at 90 Degrees Small Bites/Sips Effortful Swallow Double Swallow Lingual Sweep Check for Pocketing Liquids from Cup Treatment Plan Placement Recommendation after Discharge [facility] Facility Appropriate for Continued Therapy Yes Therapy Recommendations Ongoing assessment of swallow function/safety, pt/family education in aspiration risks and precautions, training of safe swallow strategies particularly double swallow. Assessment of speech and language. Dysphagia Goals Pt will tolerate least restrictive diet to meet his hydration and nutrition needs. Pt will follow safe swallow strategies with minimal cuing to reduce risk of aspiration. Pt/family education
--- NOTE | 2018-06-16 12:42 | PC.NURSE ---
Day shift: Pt allowed to sleep through luch due to him appearing tired and currently asleep. Colton set aside and his spouse brought him food that is labeled and in North fridge. Call light in reach.
--- NOTE | 2018-06-16 15:14 | CM.DPC ---
DCP/continued: Reviewed chart. Received verbal referral from [facility] staff indicating that spouse requesting to see DYNAMICS AX TECHNICAL ARCHITECT re: d/c plan. Per MD, in AM rounds discharge expected within the next 24-48hrs. Met with patient to discuss planning. Spouse/Keene anxious during visit. She is very concerned about patient discharging from [facility] tomorrow? Spouse does not feel like patient is ready spouse also indicates that she does not feel ready. Spouse considering [facility] and she reports that she has spoken with [facility]. DYNAMICS AX TECHNICAL ARCHITECT placed call to [facility] and [facility] and she confirms that she has spoken with spouse and that they will provide this patient with private room. Spouse in agreement but remains unsure if discharge tomorrow is too soon? Spouse aware of her right to appeal if she desires to do so. Spouse plans to arrange her home so that she can take patient home as soon as possible. Provided spouse with information for [facility] for DME rentals. Spouse appreciative. P: [facility] when medically stable. Spouse concerned about patient discharging too soon and may appeal. CM team following closely. TAE Mitchell
--- NOTE | 2018-06-16 17:40 | P.PN_ITS ---
Subjective Date Patient Seen: 06/16/18 Time Patient Seen: 14:37 Interval history: Interval history: History of present illness Follow-up on patient with a acute versus subacute stroke involving the [place]. Note at this time patient is oriented to self only. Patient on a restricted dysphagia diet with nectar thick liquid provided. Speech recommended nectar thick fluid consistency on June 15. Nursing notes NIH stroke score of 12. 1. 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 Patient with a history of prior stroke with hemorrhagic conversion. Patient was on Eliquis at 2.5 mg b.i.d. but no aspirin 81 mg once daily prior to admission and the Statin was not at high dosage range. Exam Vital Signs (past 8 hours): - 06/16/18 16:06 Temperature 97.6 F Pulse Rate 84 Respiratory Rate 19 Blood Pressure 139/71 H Pulse Oximetry 96 Oxygen Delivery Method Room Air Oxygen Flow Rate 0 Narrative Exam Narrative: Const General: healthy appearing, comfortable, in no in distress and not anxious Nutritional Appearance: patient with average for age body habitus and well nourished Orientation: alert, awake and oriented to person only. Resp Normal respiratory effort with no cough Auscultation: clear to auscultation bilaterally, no crackles and no wheezes Cardio Rate: regular rate Rhythm: abnormal rhythm Heart Sounds: S1 normal, no murmurs and no rubs GI Inspection: normal to inspection, no edema and non-distended Palpation: soft and No tender Auscultation: normal bowel sounds Skin NO rash nor lesions noted. Turgor normal. Non-jaundiced. General: no rashes or lesions noted and No jaundice Neuro General: alert, awake and oriented (self only) Motor: strength abnormal and other (right sided hemiparesis noted. Right-sided facial weakness.) Objective Labs Result Diagrams: 06/12/18 20:30 06/12/18 20:30 Labs: Laboratory Results - last 24 hr 06/15/18 17:52 B-Natriuretic Peptide 234.0 H Assessment & Plan Plan: Assessment/Plan Narrative: 1. 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 Will continue Eliquis at 2.5 mg twice daily and aspirin 81 mg daily, as discussed with patient's son in [place]. In addition, will increase Lipitor t to 80 mg po each evening, also diiscussed with son who approved of these changes. 2. Type 2 diabetes: Continue metformin, with accuchecks qac/qhs and insulin sliding scale prn. 3. Chronic atrial fibrillation: Ventricular rate controlled. Note Eliquis 2.5 mg po bid. Note prior history of stroke with hemorrhagic conversion. 4. Hypertension: Continue home dose of blood pressure meds losartan 50 mg once daily and Toprol XL 150 mg once daily 5. Hyperlipidemia: Continue atorvastatin 40 mg daily 6. Risk for aspiration: Speech recommended fluid consistency changed to nectar thick liquids. Requested AP portable chest x-ray June 15 and BNP to evaluate for CHF vs aspiration. Results of studies as follow: Chest x-RAY with no acute cardiopulmonary findings reported. BNP = 223. 7. Possible chronic congestive heart failure: BNP today is pending. AP CXR today is pending. Code status: Do not resuscitate. Post form completed and filed at his primary care clinic. Discharge Planning Discharge home with home health services when he is medically more stable. His is trying to make their home ready and hiring a personal financial counselor. Patient might be suitable for discharge to SNF tomorrow. Time Spent With Patient Time with patient: 25 - 35 minutes (this includes conversion with spouse at bedside and son by telephone. ) Quality VTE Deep Vein Thrombosis/Pulmonary Embolism Present on Admission: Yes
--- NOTE | 2018-06-16 17:43 | PM.PN.1 ---
Exam Vital Signs (past 8 hours): - 06/16/18 16:06 Temperature 97.6 F Pulse Rate 84 Respiratory Rate 19 Blood Pressure 139/71 H Pulse Oximetry 96 Oxygen Delivery Method Room Air Oxygen Flow Rate 0 Objective Labs Result Diagrams: 06/12/18 20:30 06/12/18 20:30 Labs: Laboratory Results - last 24 hr 06/15/18 17:52 B-Natriuretic Peptide 234.0 H Assessment & Plan Plan: Assessment/Plan Narrative: 1. 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 Will continue Eliquis at 2.5 mg twice daily and aspirin 81 mg daily, as discussed with patient's son in [place]. In addition, will increase Lipitor t to 80 mg po each evening, also diiscussed with son who approved of these changes. 2. Type 2 diabetes: Continue metformin, with accuchecks qac/qhs and insulin sliding scale prn. 3. Chronic atrial fibrillation: Ventricular rate controlled. Note Eliquis 2.5 mg po bid. Note prior history of stroke with hemorrhagic conversion. 4. Hypertension: Continue home dose of blood pressure meds losartan 50 mg once daily and Toprol XL 150 mg once daily 5. Hyperlipidemia: Continue atorvastatin 40 mg daily 6. Risk for aspiration: Speech recommended fluid consistency changed to nectar thick liquids. Requested AP portable chest x-ray June 15 and BNP to evaluate for CHF vs aspiration. Results of studies as follow: 7. Possible chronic congestive heart failure: BNP today is pending. AP CXR today is pending. Code status: Do not resuscitate. Post form completed and filed at his primary care clinic. Discharge Planning Discharge home with home health services when he is medically more stable. His is trying to the did his home ready and hiring a appraiser personal property. Quality VTE Deep Vein Thrombosis/Pulmonary Embolism Present on Admission: Yes
[2018-06-16] MEDS: ATORVASTATIN 20 MG TABLET 40 MG PO (21:19)
[2018-06-16] MEDS: LATANOPROST 0.005% OPHTH 2.5 ML 1 DROPS EYE-BOTH (21:19)
[2018-06-17] VITALS (8 sets, daily range): BP systolic 137–150; BP diastolic 71–98; PULSE 78–91; RESP 16–20; TEMP 36–36.9; O2SAT 95–98
--- NOTE | 2018-06-17 05:03 | PC.NURSE ---
Addendum entered by Phyllis Gomez R.N. 06/17/18 05:18: correction- afib with PVC Original Note: shift note Met with pt at start of shift. Pt is alert to self only. cough. RA 97%. 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 Has brief on and had some incontinence during shift. PIV R AC discontinued. Q2H turns. Pt's NIH was 17. Maame shift reported 9. Pt did not know the month nor age. Loss of visual field on left side. Right sided droop when smiling. Drifts observed in both arms and lower extremities. Notified MD. Continue to monitor. Call light in reach.
[2018-06-17] MEDS: APIXABAN 5 MG TABLET 2.5 MG PO ×2 (09:55→19:29)
[2018-06-17] MEDS: SODIUM CHLORIDE 0.9% FLUSH 10 ML IV (09:55)
[2018-06-17] MEDS: METFORMIN HCL 500 MG TABLET 1000 MG PO ×2 (09:55→17:09)
[2018-06-17] MEDS: LOSARTAN 50 MG TABLET PO (09:55)
--- NOTE | 2018-06-17 10:45 | OT.IP.TRT ---
Current Diagnoses Cerebral infarction, unspecified (06/12/18) Occupational Therapy Treatment Note M2 OT-IP Current Condition Start: 06/13/18 15:28 Freq: Status: Active Protocol: Document 06/15/18 12:26 CCC (Rec: 06/15/18 12:58 [facility] [id number]) Occupational Therapy Current Condition Current Condition Evaluation Date 06/15/18 Treatment Diagnosis Possible acute CVA and CHF exacerbation Diagnosis Onset Date 06/12/18 Weight Bearing Status Weight Bearing Status Weight Bear as Tolerated M3 OT- IP Subjective and Pain Start: 06/13/18 15:28 Freq: Status: Active Protocol: Document 06/17/18 17:57 PJM (Rec: 06/17/18 18:02 PJM [id number]) OT- Subjective Occupational Therapy Visit Type Type Treatment Note Visit Start Time 10:21 Visit Stop Time 10:45 Total Visit Minutes 24 Notes Pt's observing portion of session; co tx with P.T. for mobility OT Pain Assessment Pain Present Pain Present Denied Pain M4 OT- IP ADL's Start: 06/13/18 15:28 Freq: Status: Active Protocol: Document 06/17/18 17:57 PJM (Rec: 06/17/18 18:02 PJM [id number]) OT ADL-Grooming General Evaluation Grooming Ability Maximum Assistance Areas Needing Assistance Face Washing Comments OT Grooming Comments Pt washes face very slowly with poor thoroughness; assisting for completion. OT ADL-Toileting General Evaluation Toileting Ability Total Assistance Areas Needing Assistance Manage Clothing Comments OT Toileting Comments for brief change during rolling in bed M7 OT- IP Mobility and Balance Start: 06/13/18 15:28 Freq: Status: Active Protocol: Document 06/17/18 17:57 PJM (Rec: 06/17/18 18:02 PJ [id number]) OT- Bed Mobility Assessment Rolling Type of Rolling Roll to Right Roll to Left Level of Assistance Maximum Assistance 2 Person Assistance Bedrails OT-Transfer Assessment Devices Transfer Assistive Devices Mechanical Lift Comments Mobility Comments Pt needs max assist of 2 to roll in bed. Pt needs hand over hand assist to use M9 OT- IP Assessment and Plan Start: 06/13/18 15:28 Freq: Status: Active Protocol: Document 06/17/18 17:57 PJM (Rec: 06/17/18 18:02 PJ [id number]) OT Summary Assessment and Plan Summary Progress Towards Goals Slow Progress due to Medical Issues Slow Progress due to Activity Tolerance Slow Progress due to Cognition Assessment Summary Pt very fatigued today and had been laying on back for 2+ hours. Therefore worked on bed mobility only and positioned pt in side lying to relieve pressure area on coccyx. Pt continue to require max assist of 2 for bed mobility and total assist for brief change in bed. Pt will need SNF when medically stable. Goals Days to Meet Goals 7 Frequency of Treatment Frequency Of Treatment Once a Day Treatment Plan OT Treatment Plan ADL Training Functional Cognition Training Functional Mobility Neuromuscular Re-education Patient/Family Education Discharge Planning Discharge Recommendations OT Discharge Recommendations SNF Rehab Home Equipment Needs W/C, rolling shower chair, power sit to stander or manisha lift, hospital bed, ? air overlay mattress due to skin breakdown, ramp; further recommendations to occur in next rehab setting pending pt progress.
--- NOTE | 2018-06-17 10:45 | PT.IPTN ---
Current Diagnoses Cerebral infarction, unspecified (06/12/18) Physical Therapy Treatment Note M2 PT-IP Current Condition Start: 06/13/18 15:46 Freq: NEEDED Status: Active Protocol: Document 06/14/18 11:25 RCC (Rec: 06/14/18 13:07 RCC [id number]) Physical Therapy Current Condition Current Condition Evaluation Date 06/14/18 Treatment Diagnosis acute CVA, impaired mobility Onset Date 06/12/18 M3 PT-IP Subjective Start: 06/13/18 15:46 Freq: NEEDED Status: Active Protocol: Document 06/17/18 10:45 MDD (Rec: 06/17/18 12:08 MDD [id number]) Subjective Physical Therapy Visit Type Type Treatment Note Visit Start Time 10:26 Visit Stop Time 10:45 Total Visit Minutes 19 Notes Treatment performed as a co- treat with occupational therapy. Number of AUTISM TUTOR Visits 0 Physical Therapy Visit Comments Patient Comments Pt nods in agreement to work with therapy today. Therapy Pain Assessment Pain Present Pain Present Denied Pain M4 PT-IP Mobility and Gait Start: 06/13/18 15:46 Freq: NEEDED Status: Active Protocol: Document 06/14/18 14:35 RCC (Rec: 06/14/18 15:06 RCC [id number]) PT-Bed Mobility Assessment Sit to Supine Sit to Supine Maximum Assistance 2 Person Assistance PT-Transfer Assessment Sit to and From Stand Sit to and from Stand Total Assistance Equipment Transfer Assistive Device Mechanical Lift Transfers Transfer Destination Bed Bedside Commode Transfer Technique Power Stander Transfer Ability Level of Assist Total Assistance 2 Person Assistance Comments Mobility Comments Power sit to stand machine utilized. PT-Balance Assessment Sitting Balance and Reactions Static Sitting Balance Ability Fair Dynamic Sitting Balance Ability Poor M5 PT-IP Objective Assessments Start: 06/13/18 15:46 Freq: NEEDED Status: Active Protocol: Document 06/14/18 14:35 RCC (Rec: 06/14/18 15:06 RCC [id number]) Other Assessments Other Other Assessments Mild redness to mid-back, massaged and wiped with warm/ damp cloth. M6 PT-IP Treatment Start: 06/13/18 15:46 Freq: NEEDED Status: Active Protocol: Document 06/17/18 10:45 MDD (Rec: 06/17/18 12:08 MDD [id number]) Physical Therapy Treatment Other Treatments Other Treatment Performed Bed mobility: Mod - Max A x2 for log rolling. Able to initiate movements with UE's and reach for bedrails, but requires assist with LE's and actual rolling. Performed 2x to R and once to left. M7 PT-IP Assessment and Plan Start: 06/13/18 15:46 Freq: NEEDED Status: Active Protocol: Document 06/17/18 10:45 MDD (Rec: 06/17/18 12:08 MDD [id number]) PT Summary Assessment and Plan Potential Rehabilitation Potential Fair Status of Condition at Evaluation Evolving Summary Impairments Strength Cognition Bed Mobility Transfers Gait Activity Tolerance Progress Towards Goals Slow Progress due to Medical Issues Slow Progress due to Activity Tolerance Assessment Summary Pt was extremely fatigued during treatment today. Demonstrated improved ability to actively dorsiflex right foot with cueing, but requires mod - max A x2 for bed mobility. Goals Bed Mobility Goal Minimal Assistance Transfer Goal Minimal Assistance Front Wheeled Walker Gait Goal Minimal Assistance Gait Distance 15 Days to Meet Goals 5 Frequency of Treatment Frequency Of Treatment Once a Day Treatment Plan Physical Therapy Treatment Plan Bed Mobility Training Transfer Training Gait Training Therapeutic Exercise Balance Retraining Discharge Planning Neuromuscular Re-ed Coordination Retraining Manual Therapy Other Recommendations and Next Treatment transfers with progression Focus toward manual vs. power stander, thera ex, tone management/ROM/positioning. Recommendations To Nursing Amount of Assist Needed 2 Person Assist Power Sit-Stand Discharge Recommendations PT Discharge Recommendations SNF Rehab Equipment Needed for Home Before ramp built in and manisha or Discharge power stander if pt is to return home, as well as 09/06 assist and private CG
--- NOTE | 2018-06-17 10:56 | ST.IPIE ---
Visit Care Team Role Provider Type Santiago Oliva MD Family Provider Physician Primary Care Provider Specialty: Internal Medicine Address: [address] [place] [address] Email: DARWIN Sutherland Emergency Provider Advanced Servicenow Administrator Specialty: Emergency Medicine Address: [address] [place] [address] Email: Gilmer Toth MD Admit Provider Physician Attending Provider Other Providers Specialty: Internal Medicine Address: [address] [place] [id number] Email: Current Diagnoses Cerebral infarction, unspecified (06/12/18) Past Medical History (Last Reviewed 06/13/18 @ 14:50 by Nati Fish MD) Dementia (Acute Medical) Frequent falls (Acute Medical) History of TIAs (Acute Medical) ST IP Initial Evaulation 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 Subjective Subjective Patient's present in room . Patient sitting up in bed, responses are infrequent and delayed. When asked if he is tired, he responds with a head nod yes. Nursing reports NIH stroke scale increased from 9 yesterday to 17 today. Per nursing staff, patient consumed breakfast with minimal coughing (x1), he is implementing double swallow independently on occasion, but continues to require feeding assistance and cues for double swallow and throat clear. - - Receptive Language Yes/No Questions Skill Level Mildly Impaired Following Directions - Verbal Skill Level Moderately Impaired Receptive Language Comments Receptive Language Comments Patient able to answer simple y/n questions related to basic personal information and orientation. He had more difficulty with complex yes/no questions and began to perseverate on the questions instead of responding yes/no. He followed one-step directions including right/ left discrimination with 100% accuracy. He was not able to follow 2 or 3 step directions. - Expressive Language Automatic Speech Skill Level Moderately Impaired Sentence Closure Skill Level Moderately Impaired Object Naming Skill Level WFL Expressive Language Comments Expressive Language Comments Patient was able to name 12/12 common objects/pictures. He did not provide answers for two trials of phrase completion, rather perseverated on the verbal prompt salt and ___. - Findings Language Findings Patient presents with functional receptive and expressive language for answering simple questions and communicating basic wants/ needs; however, response time is slow and his ability to understand and express complex ideas/thoughts is impaired. His speech is characterized by mild-moderate dysarthria significant for reduced loudness, imprecise articulation and slow rate resulting in slurred speech which is intelligible ~60% of the time. Recommendations Recommendations Recommend ongoing speech and language assessment (formal language assessment recommended, but patient unable to participate today due to fatigue) and therapy targeting improving communication effectiveness and speech intelligibility in addition to ongoing dysphagia management. Per , patient may discharge to [facility] today.
[2018-06-17] MEDS: ASPIRIN 81 MG TAB PO (12:38)
[2018-06-17] MEDS: METOPROLOL 50 MG TABLET PO ×2 (12:38→19:31)
[2018-06-17] MEDS: SODIUM CHLORIDE 0.9% 1,000 ML 125 ML IV (12:39)
--- NOTE | 2018-06-17 15:35 | CM.DPC ---
DCP Cont: According to the conversation w/ Dr Andersen this morning; pt has declined. Dr Andersen is concerned that w/a nectar thick recommendation from CAMPER ASSEMBLER, pt will not get enough fluid and nutrition to be life sustaining, he explained it's unknown when pt's swallow abilities will improve, thus he will present the idea of tube feedings at night to pt's spouse and their son Adithya (a surgeon in [place]). Reviewed chart and met w/pt's spouse Emilee per her request. Emilee feeling quite overwhelmed today watching pt attempt recovery here. She explains that she would like addtl SNFs to review the referral for accommodation of pt's DC needs, especially 1:1 feedings. Emilee requests [facility] and [facility] be contacted. New referrals faxed by this SURFACE GRINDER TENDER this afternoon. Emilee aware pt will not DC today. Emilee would like Dr Andersen to discuss next steps in pt's medical course w/son Adithya. Emilee explained that she and her children's goal to take pt home when he can walk better and hire caregivers in order to keep him at home for as long as possible. According to Emilee, pt has had dementia for approx a year and 1/2 that has gradually been getting worse. Asked about pt's advanced directives? Emilee explained pt had completed a living will and likely reviewed its contents more thoroughly w/their son Adithya. Reviewed some initial information w/Feli at [facility], she is familiar w/Dr Rigoberto Argueat and can likely offer him a private rm w/assigned SECOND OPERATOR for 1:1 feedings w/assist from in house CAMPER ASSEMBLER. Feli appreciates the referral and would like an update re tube placement (?) when available. Following closely. Megan Borjas MSW
--- NOTE | 2018-06-17 17:00 | ST.IPDYTX ---
SENIOR QUALITY ENGINEER Dysphagia Treatment SENIOR QUALITY ENGINEER Dysphagia Treatment Start: 06/13/18 15:11 Freq: Status: Active Protocol: Document 06/17/18 16:48 FRIDA (Rec: 06/17/18 17:00 FRIDA [id number]) Dysphagia Treatment Session Time Visit Start Time 12:40 Visit Stop Time 13:40 Total Visit Minutes 60 Setting Assessment Location Acute Care Visit Type Note Type Treatment Note Treatment Liquids Trialed Thin Meadow Solids Trialed Puree Dysphagia Mechanical Administration Type Tea Spoon Cup Single Sip Controlled Cup Sip Self-Feeding Dependent Feeding Oral Strategies Upright at 90 degrees Double Swallow Controlled Bite/Sip Size Pharyngeal Strategies Sitting Upright (90 deg) Double Swallow Small Bites and Sips Treatment Activities Assessed pt's safety with thin water to possible inclusion of David Free Water Protocol into POC to meet pt's hydration needs. The pt was asleep in bed upon SENIOR QUALITY ENGINEER arrival, easily aroused to voice. Stated he was hungry. Pt recalled double swallow safety strategy when prompted with carrier phrase. Pt tolerated tsp sips of thin water with mild cough x2, one immediate and the other delayed, across 8 trials. Coughs occurred after single swallows only. Pt was able to self-feed from cup and follow commands for small sip. Occasional wet vocal quality observed but less frequently than when pt was seen by this SENIOR QUALITY ENGINEER yesterday. No other overt s/sx of aspiration were observed with use of double swallow. Pt continues to have some struggle in producing second swallow but does so consistently when given ample time and verbal prompting. The pt's was present during part of the session and provided feeding and verbal cuing assistance appropriately . Education and training provided to pt/ RE David Free Water Protocol and instructions for such were posted on the wall above the pt's bed. The pt's verbalized understanding, as did Nsg. Assessment Patient Response to Treatment Good Rehab Potential Fair Assessment of Improvement Pt's tolerance of small amounts of thin water with max supervision and verbal prompts for double swallow is adequate to initiate David Free Water Protocol: Small amounts of thin water (2-3 oz at a time) ok between meals and after strict oral care. Continue NTL with dysphagia mechanical foods, meds in carrier. Monitor pt's chest sounds, temperatures and other clinical indications of aspiration. Discontinue free water protocol if pt exhibits coughing or clinical signs of aspiration. Diet Recommendations Comment David Free Water Protocol Liquids Order Meadow Diet Order Dysphagia Mechanical Medication Recommendations Other Comments As tolerated in carrier Additional Dietary Needs Single Sips Controlled Sips No Straws 1:1 Supervision 1:1 Assistance Encourage to Self-Feed Reminders to Use Strategies Aspiration Precautions Recommended Precautions Upright at 90 Degrees Frequent Rest Periods Small Bites/Sips Double Swallow Lingual Sweep Check for Pocketing Treatment Plan Placement Recommendation after Discharge Custodial Facility Appropriate for Continued Therapy Yes Therapy Recommendations Continue dysphagia treatment. Continue speech-language assessment Dysphagia Goals Pt will tolerate least restrictive diet to meet his hydration and nutrition needs. Pt will follow safe swallow strategies with minimal cuing to reduce risk of aspiration. Pt/family education
[2018-06-17] MEDS: ATORVASTATIN 20 MG TABLET 40 MG PO (19:29)
[2018-06-17] MEDS: LATANOPROST 0.005% OPHTH 2.5 ML 1 DROPS EYE-BOTH (19:30)
--- NOTE | 2018-06-17 19:57 | P.PN_ITS ---
Subjective Date Patient Seen: 06/17/18 Time Patient Seen: 14:53 Interval history: History of present illness Follow-up on patient with stroke to the [place]. Patient on a restricted oral intake with dysphagia diet and nectar thick liquid. Total in's and out's fluid balance is being monitored. Patient with a recent aggression in his neurologic presentation with an increase in the NIH stroke scale. Review of systems Patient is able to reply that he has no chest pain or shortness of breath or nausea at this time. Exam Vital Signs (past 8 hours): - 06/17/18 15:00 06/17/18 16:06 06/17/18 19:27 Temperature 96.8 F L 98.1 F Pulse Rate 88 91 H Respiratory Rate 18 18 Blood Pressure 149/71 H 140/85 H Pulse Oximetry 98 98 95 Oxygen Delivery Method Room Air Oxygen Flow Rate 0 Narrative Exam Narrative: General appearance Patient is noted to be awake and alert in no apparent distress. Patient's is very attentive in at bedside each time I visited the patient. Patient is well groomed. Psychiatric Patient is oriented to self only. Patient is cooperative mood is pleasant Respiratory Lungs are clear to auscultation with good airflow no wheezes no crackles Cardiovascular Irregular irregular rhythm consistent with the atrial fibrillation rate is controlled rate of 80 no murmur noted GI Abdomen is fairly soft nontender positive bowel sounds no distention or guarding no bruits neurologic Neurologic Patient with continued mild right hemiparesis. Less asymmetry noted to the face on exam today. Objective Labs Result Diagrams: 06/12/18 20:30 06/12/18 20:30 Assessment & Plan Plan: Assessment/Plan Narrative: 1. 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 Will continue Eliquis at 2.5 mg twice daily and aspirin 81 mg daily, as discussed with patient 's son in [place]. In addition, I increased Lipitor t to 80 mg po each evening, as diiscussed with son, who approved of these changes. 2. Type 2 diabetes: Continue metformin, with accuchecks qac/qhs and insulin sliding scale prn. 3. Chronic atrial fibrillation: Ventricular rate controlled. Note Eliquis 2.5 mg po bid. Note prior history of stroke with hemorrhagic conversion. 4. Hypertension: Continue home dose of blood pressure meds losartan 50 mg once daily and Toprol XL 150 mg once daily 5. Hyperlipidemia: Continue atorvastatin 40 mg daily 6. Risk for aspiration: Speech recommended fluid consistency changed to nectar thick liquids. Requested AP portable chest x-ray June 15 and BNP to evaluate for CHF vs aspiration. Results of studies as follow: Chest x-RAY with no acute cardiopulmonary findings reported. BNP = 223. 7. Possible chronic congestive heart failure: BNP and AP CXR June 16 reviewed and no significant findings for CHF 8. Risk for dehydration Note in AM today patient had a total fluid intak of 280 cc for the preceeding 24 hours. I gave patient 1 liter of Normal Saline via IV today. Patient may warrant a PEG or GJ tube to assure adequate fluid and nutrition during this period of time he is at risk to aspirate and a restricted diet is in place. Unclear how long it may be before he no longs requires the dysphagia diet. Code status: Do not resuscitate. Post form completed and filed at his primary care clinic. Discharge Planning Discharge home with home health services when he is medically more stable. His is trying to make their home ready and hiring a personal financial counselor. Patient might be suitable for discharge to SNF tomorrow. Time Spent With Patient Time Spent With Patient Time with patient: 25 - 35 minutes Quality VTE Deep Vein Thrombosis/Pulmonary Embolism Present on Admission: Yes
[2018-06-18] VITALS (13 sets, daily range): BP systolic 121–158; BP diastolic 73–104; PULSE 63–96; RESP 12–20; TEMP 36.4–37; O2SAT 95–98
[2018-06-18] MEDS: SODIUM CHLORIDE 0.9% FLUSH 10 ML IV ×3 (00:32→19:16)
[2018-06-18] MEDS: METFORMIN HCL 500 MG TABLET 1000 MG PO ×2 (09:09→17:00)
[2018-06-18] MEDS: METOPROLOL 50 MG TABLET PO ×2 (09:10→19:15)
[2018-06-18] MEDS: LOSARTAN 50 MG TABLET PO (09:10)
[2018-06-18] MEDS: ASPIRIN 81 MG TAB PO (09:10)
[2018-06-18] MEDS: APIXABAN 5 MG TABLET 2.5 MG PO ×2 (09:10→19:15)
[2018-06-18] MEDS: POLYETHYLENE GLYCOL 3350 17 GM POWD.PACK PO (09:10)
--- NOTE | 2018-06-18 10:10 | ST.IPDYTX ---
FREELANCE OPERATOR Dysphagia Treatment FREELANCE OPERATOR Dysphagia Treatment Start: 06/13/18 15:11 Freq: Status: Active Protocol: Document 06/18/18 10:03 TLC (Rec: 06/18/18 10:10 TLC [id number]) Dysphagia Treatment Session Time Visit Start Time 08:30 Visit Stop Time 09:00 Total Visit Minutes 30 Setting Assessment Location Acute Care Visit Type Note Type Treatment Note Patient Information Subjective Observations Patient seen sitting up in chair at bedside finishing breakfast. No family present in room. Treatment Liquids Trialed Thin [place] Solids Trialed Puree Dysphagia Mechanical Administration Type Tea Spoon Cup Single Sip Self-Feeding Oral Strategies Upright at 90 degrees Double Swallow Controlled Bite/Sip Size Pharyngeal Strategies Sitting Upright (90 deg) Double Swallow Small Bites and Sips Treatment Activities Observed patient self-feeding breakfast (omelet and yogurt w / nectar thickened juice). Patient exhibits slow rate with independent implementation of double swallow on most swallows. He required assistance with oral prep towards the end of the meal. Good sensation for clearing residue using tongue sweep, napkin and liquid wash with double swallow. Trial of thin liquid during meal resulted in delayed cough. Otherwise, no coughing observed during meal. Ongoing education provided to nursing staff regarding diet orders including continuing nectar thick liquids during meals but allowing water in between meals after oral care has been completed. Nursing expressed understanding. Assessment Patient Response to Treatment Good Rehab Potential Fair Assessment of Improvement Patient consumed all of his breakfast and demonstrated excellent carryover of strategies including slow rate , small bites/sips and double swallow. Given his slow processing speed, nectar thick liquids remain the safest option at this time time to reduce his risk of aspiration. However, free water protocol is appropriate for increasing hydration and for working on improving patient's response time to thin liquids in between meals. Diet Recommendations Recommendations Continue Current Diet Comment David Free Water Protocol Liquids Order [place] Diet Order Dysphagia Mechanical Medication Recommendations Other Comments As tolerated in carrier Additional Dietary Needs Single Sips Controlled Sips No Straws 1:1 Supervision 1:1 Assistance Encourage to Self-Feed Reminders to Use Strategies
--- NOTE | 2018-06-18 11:48 | PT.IPTN ---
Current Diagnoses Cerebral infarction, unspecified (06/12/18) Physical Therapy Treatment Note M2 PT-IP Current Condition Start: 06/13/18 15:46 Freq: NEEDED Status: Active Protocol: Document 06/14/18 11:25 RCC (Rec: 06/14/18 13:07 RCC [id number]) Physical Therapy Current Condition Current Condition Evaluation Date 06/14/18 Treatment Diagnosis acute CVA, impaired mobility Onset Date 06/12/18 M3 PT-IP Subjective Start: 06/13/18 15:46 Freq: NEEDED Status: Active Protocol: Document 06/18/18 11:48 MDD (Rec: 06/18/18 12:38 MDD [id number]) Subjective Physical Therapy Visit Type Type Treatment Note Visit Start Time 11:27 Visit Stop Time 11:48 Total Visit Minutes 21 Notes Treatment performed as co- treatment with OT. Number of CLINICAL MASSAGE THERAPIST Visits 0 Physical Therapy Visit Comments Patient Comments Pt nods in agreement to work with therapy today. Therapy Pain Assessment Pain Present Pain Present Denied Pain M4 PT-IP Mobility and Gait Start: 06/13/18 15:46 Freq: NEEDED Status: Active Protocol: Document 06/14/18 14:35 RCC (Rec: 06/14/18 15:06 RCC [id number]) PT-Bed Mobility Assessment Sit to Supine Sit to Supine Maximum Assistance 2 Person Assistance PT-Transfer Assessment Sit to and From Stand Sit to and from Stand Total Assistance Equipment Transfer Assistive Device Mechanical Lift Transfers Transfer Destination Bed Bedside Commode Transfer Technique Power Stander Transfer Ability Level of Assist Total Assistance 2 Person Assistance Comments Mobility Comments Power sit to stand machine utilized. PT-Balance Assessment Sitting Balance and Reactions Static Sitting Balance Ability Fair Dynamic Sitting Balance Ability Poor M5 PT-IP Objective Assessments Start: 06/13/18 15:46 Freq: NEEDED Status: Active Protocol: Document 06/14/18 14:35 RCC (Rec: 06/14/18 15:06 RCC [id number]) Other Assessments Other Other Assessments Mild redness to mid-back, massaged and wiped with warm/ damp cloth. M6 PT-IP Treatment Start: 06/13/18 15:46 Freq: NEEDED Status: Active Protocol: Document 06/18/18 11:48 MDD (Rec: 06/18/18 12:38 MDD [id number]) Physical Therapy Treatment Other Treatments Other Treatment Performed bed mobility: Pt able to initiate hip flexion, but requires assist for position. Able to reach L arm to bedrail and initiate roll but requires mod A for full log roll. Mod A for supine to sit , cues for proper hand placement, pushing with R UE. Sitting EOB requires mod A for scooting forward. Practice balancing in sitting with B UE's, cues for leaning forward (leaning back). Able to hold himself upright with max cues intermittently 2-3 seconds at a time. Performed squat pivot transfer (able to reach to recliner with L UE) with max A - total A x2. M7 PT-IP Assessment and Plan Start: 06/13/18 15:46 Freq: NEEDED Status: Active Protocol: Document 06/18/18 11:48 MDD (Rec: 06/18/18 12:38 MDD [id number]) PT Summary Assessment and Plan Potential Rehabilitation Potential Good Status of Condition at Evaluation Evolving Summary Impairments Strength Bed Mobility Transfers Gait Activity Tolerance Progress Towards Goals Progressing Toward Goals Slow Progress due to Activity Tolerance Assessment Summary Pt demonstrates mild improvements in ability to respond to cues today, but continues to be very weak and fatigue easily. Able to perform squat pivot transfer, but required max to total assist x2. Recommend nursing continue with mechanical sit to stand for transfers. Goals Bed Mobility Goal Minimal Assistance Transfer Goal Minimal Assistance Front Wheeled Walker Gait Goal Minimal Assistance Gait Distance 15 Days to Meet Goals 5 Frequency of Treatment Frequency Of Treatment Once a Day Treatment Plan Physical Therapy Treatment Plan Bed Mobility Training Transfer Training Gait Training Therapeutic Exercise Balance Retraining Discharge Planning Neuromuscular Re-ed Coordination Retraining Manual Therapy Other Recommendations and Next Treatment transfers with progression Focus toward manual vs. power stander, thera ex, tone management/ROM/positioning. Recommendations To Nursing Amount of Assist Needed 2 Person Assist Power Sit-Stand Discharge Recommendations PT Discharge Recommendations SNF Rehab Equipment Needed for Home Before ramp built in and manisha or Discharge power stander if pt is to return home, as well as 09/06 assist and private CG
--- NOTE | 2018-06-18 13:05 | OT.IP.TRT ---
Current Diagnoses Cerebral infarction, unspecified (06/12/18) Occupational Therapy Treatment Note M2 OT-IP Current Condition Start: 06/13/18 15:28 Freq: Status: Active Protocol: Document 06/15/18 12:26 [facility] (Rec: 06/15/18 12:58 [facility] [id number]) Occupational Therapy Current Condition Current Condition Evaluation Date 06/15/18 Treatment Diagnosis Possible acute CVA and CHF exacerbation Diagnosis Onset Date 06/12/18 Weight Bearing Status Weight Bearing Status Weight Bear as Tolerated M3 OT- IP Subjective and Pain Start: 06/13/18 15:28 Freq: Status: Active Protocol: Document 06/18/18 12:58 [facility] (Rec: 06/18/18 13:05 [facility] [id number]) OT- Subjective Occupational Therapy Visit Type Type Treatment Note Visit Start Time 11:27 Visit Stop Time 11:57 Notes Pt's observing portion of session; cotx with P.T. for mobility Occupational Therapy Visit Comments Patient Comments Pt agreeable to get up. Patient/Caregiver Goals Pt's now wanting skilled rehab for pt. OT Pain Assessment Pain Present Pain Present Denied Pain M4 OT- IP ADL's Start: 06/13/18 15:28 Freq: Status: Active Protocol: Document 06/18/18 12:58 [facility] (Rec: 06/18/18 13:05 [facility] [id number]) OT ADL-Grooming General Evaluation Grooming Ability Moderate Assistance Areas Needing Assistance Face Washing Comments OT Grooming Comments Pt able to initiate face washing and get to eyes and mouth and assisting for completeness. Pt able to initiate use of oral swab and assisted for completeness . OT ADL-Dressing General Eval Lower Body Dressing Ability Total Assistance Areas Needing Assistance Retrieving/Set-up of Clothing Underpants/Brief Socks M6 OT- IP Functional Cognition Start: 06/13/18 15:28 Freq: Status: Active Protocol: Document 06/16/18 10:57 PJM (Rec: 06/16/18 13:26 PJM [id number]) Cognitive Factors Limiting Selfcare Function Cognitive Ability Level of Alertness Alert Patient Orientation Name Attention Span Ability Capable of Focused Attention Ability to Follow Commands Able to Follow One Step Commands Memory Description Short Term Impaired Safety Awareness Decreased Recall of Precautions Decreased Ability to Apply Precautions Problem Solving Ability Needs Assist to Identify Solutions Cognitive Comments Cognitive Assessment Comments Pt presents with significantly slowed speed of processing. He continued to require max verbal cues to follow swallowing precautions despite repeation of instructions with each bite. OT- Vision and Hearing OT- Hearing Assessment OT- Hearing Assessment WFL M7 OT- IP Mobility and Balance Start: 06/13/18 15:28 Freq: Status: Active Protocol: Document 06/18/18 12:58 [facility] (Rec: 06/18/18 13:05 [facility] [id number]) OT- Bed Mobility Assessment Rolling Type of Rolling Roll to Right Level of Assistance Moderate Assistance Maximum Assistance 2 Person Assistance Supine to Sit Supine to Sit Assist Maximum Assistance 2 Person Assistance Scooting Scooting to Edge of Bed Maximum Assistance 2 Person Assistance OT-Transfer Assessment Transfers Transfer Ability Total Assistance 2 Person Assistance Technique Transfer Destination Bed Comments Mobility Comments Able to squat pivot pt with cotxt with PT. Pt able to assist to reach out with left hand to arm rest. OT- Balance Assessment Sitting Balance and Reactions Static Sitting Balance Ability Poor Dynamic Sitting Balance Ability Poor Comments Other Balance Tests/Deviations/Treatment Pt needing from CGA to MAX a : to sit upright on the edge of the bed. tends to be in posterior and right lateral tilt. M8 OT- IP Objective Assessments Start: 06/13/18 15:28 Freq: Status: Active Protocol: Document 06/15/18 12:26 [facility] (Rec: 06/15/18 12:58 [facility] [id number]) OT Strength Comments Strength Comments RUE 0-90 AROM with elbow flexed, therfore 3-/5 and LUE grossly WFL for needs. Pt able to coordinate right hand to use a spoon and get to his mouth with head flexed. M9 OT- IP Assessment and Plan Start: 06/13/18 15:28 Freq: Status: Active Protocol: Document 06/18/18 12:58 [facility] (Rec: 06/18/18 13:05 [facility] [id number]) OT Summary Assessment and Plan Summary Progress Towards Goals Slow Progress due to Medical Issues Slow Progress due to Activity Tolerance Slow Progress due to Cognition Assessment Summary Pt initiating grooming tasks better today. Per PT noted increased movement with RLE. Pt able to use RUE to assist with grooming needs. Continue to recommend skilled rehab. Goals Days to Meet Goals 7 Frequency of Treatment Frequency Of Treatment Once a Day Treatment Plan OT Treatment Plan ADL Training Functional Cognition Training Functional Mobility Neuromuscular Re-education Patient/Family Education Discharge Planning Discharge Recommendations OT Discharge Recommendations SNF Rehab Home Equipment Needs W/C, rolling shower chair, power sit to stander or manisha lift, hospital bed, ? air overlay mattress due to skin breakdown, ramp; further recommendations to occur in next rehab setting pending pt progress.
--- NOTE | 2018-06-18 15:06 | ST.IPDYTX ---
OPERATIONS TECHNICIAN Dysphagia Treatment OPERATIONS TECHNICIAN Dysphagia Treatment Start: 06/13/18 15:11 Freq: Status: Active Protocol: Document 06/18/18 14:59 TLC (Rec: 06/18/18 15:06 TLC [email or web address]) Dysphagia Treatment Session Time Visit Start Time 12:30 Visit Stop Time 13:15 Total Visit Minutes 45 Setting Assessment Location Acute Care Visit Type Note Type Treatment Note Patient Information Subjective Observations Patient seen sitting up in chair at bedside with present in room. Patient agreed to eating lunch. Treatment Liquids Trialed [place] Solids Trialed Dysphagia Mechanical Administration Type Tea Spoon Controlled Cup Sip Self-Feeding Oral Strategies Double Swallow Controlled Bite/Sip Size Pharyngeal Strategies Double Swallow Small Bites and Sips Treatment Activities Assessed patient for diet tolerance and to encourage increased PO intake per MD. Patient self-fed soup, egg salad and nectar thick liquids requiring moderate verbal cueing by myself and his to implement double swallow as recommended. Patient was compliant ~60% of the time. He exhibited a delayed wet cough after he finished the soup. Otherwise, he utilized a throat clear when appropriate and appeared to manage his suspected pharyngeal residue well. He continues to have difficulty with initiation and slow response time, but answered my questions and responsed appropriately to cues during the meal. Assessment Patient Response to Treatment Good Rehab Potential Fair Assessment of Improvement Patient exhibits improved intake and implementation of safe swallow strategies ( double swallow, small bites/ sips). Diet Recommendations Recommendations Continue Current Diet Comment David Free Water Protocol Liquids Order [place] Diet Order Dysphagia Mechanical Medication Recommendations Other Comments As tolerated in carrier Additional Dietary Needs Single Sips Controlled Sips No Straws 1:1 Supervision 1:1 Assistance Encourage to Self-Feed Reminders to Use Strategies Aspiration Precautions Recommended Precautions Upright at 90 Degrees Frequent Rest Periods Small Bites/Sips Double Swallow Lingual Sweep Check for Pocketing Treatment Plan Placement Recommendation after [facility] Appropriate for Continued Therapy Yes Therapy Recommendations Continue dysphagia management, continue current diet with free water protocol in between meals and after oral care is provided. Dysphagia Goals Pt will tolerate least restrictive diet to meet his hydration and nutrition needs. Pt will follow safe swallow strategies with minimal cuing to reduce risk of aspiration. Pt/family education
--- NOTE | 2018-06-18 15:44 | CM.DPC ---
DCP Cont: It's still unclear if pt will require a tube placement for nutrition and fluids (?) No prog note from Dr Andersne yet today. This morning in rounds, Dr Andersen was hopeful he would get a hold of pt's son Adithya to review POC. WELLNESS EDUCATOR state pt making huge improvement today and tube is not recommended but rather continued encouragement for po intake, 1:1. Did not get a chance today to review DCP w/spouse Emilee. Need to f/u Friday to discuss current POC and [facility] choice vs another ? Referral made to [facility] yesterday but this TIRE SERVICE SUPERVISOR has not spoken w/admissions team there. Following closely. JW
[2018-06-18] MEDS: ATORVASTATIN 20 MG TABLET 40 MG PO (19:15)
[2018-06-18] MEDS: LATANOPROST 0.005% OPHTH 2.5 ML 1 DROPS EYE-BOTH (19:16)
--- NOTE | 2018-06-18 23:21 | PM.PN.1 ---
Subjective Date Patient Seen: 06/18/18 Time Patient Seen: 14:21 Interval history: History of present illness Follow up on patient with a CVA of the [place] with history of atrial fibrillation on chronic anticoagulant therapy Review of systems Patient denies any chest pain or shortness of breath. No nausea Exam Vital Signs (past 8 hours): - 06/18/18 16:25 06/18/18 19:40 Temperature 98.0 F 98.6 F Pulse Rate 63 91 H Respiratory Rate 18 16 Blood Pressure 138/76 H 129/73 H Pulse Oximetry 96 97 Oxygen Delivery Method Room Air Oxygen Flow Rate 0 Narrative Exam Narrative: General appearance Patient has noted sitting out of bed to chair with his in attendance. Patient appears to be in a good spirit. Psychiatric Oriented to self only Skin no rashes or lesions noted Respiratory Fairly clear to auscultation no wheezes no crackles Cardiovascular Irregular irregular rhythm consistent with the AFib the rate controlled of the ventricle systolic murmur noted that appears to be aortic valve stenosis GI Soft nontender positive bowel sounds no masses no distention Neurologic No focal neurologic changes noted. Cranial nerves 2-12 appear unchanged. Objective Labs Result Diagrams: 06/12/18 20:30 06/12/18 20:30 Assessment & Plan Plan: Assessment/Plan Narrative: 1. 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 Will continue Eliquis at 2.5 mg twice daily and aspirin 81 mg daily, as discussed with patient's son in [place]. In addition, I increased Lipitor to 80 mg po each evening, as discussed with son, who approved of these changes. 2. Type 2 diabetes: Continue metformin, with accuchecks qac/qhs and insulin sliding scale prn. 3. Chronic atrial fibrillation: Ventricular rate controlled. Note Eliquis 2.5 mg po bid. Note prior history of stroke with hemorrhagic conversion. 4. Hypertension: Continue home dose of blood pressure meds losartan 50 mg once daily and Toprol XL 150 mg once daily 5. Hyperlipidemia: Continue atorvastatin 40 mg daily 6. Risk for aspiration: Speech recommended fluid consistency changed to nectar thick liquids. Requested AP portable chest x-ray June 15 and BNP to evaluate for CHF vs aspiration. Results of studies as follow: Chest x-RAY with no acute cardiopulmonary findings reported. BNP = 223. Speech therapist is quite delighted over patient's improvement that was noted this morning. The speech therapist did not feel patient will warrant a PEG since he has improved on is oral intake adequately. 7. Possible chronic congestive heart failure: BNP and AP CXR June 16 reviewed and no significant findings for CHF Discharge planning Patient and family have decided for discharge and placement to nursing facility before eventual return to home. Patient may be a good candidate for discharge tomorrow to the skilled nursing if all goes well through tomorrow. Time Spent With Patient Time with patient: 25 - 35 minutes Quality VTE Deep Vein Thrombosis/Pulmonary Embolism Present on Admission: Yes
[2018-06-19 06:16] VITALS: RESP 18
[2018-06-19 07:40] VITALS: BP 139/80; PULSE 99; RESP 16; TEMP 36.8; O2SAT 95
[2018-06-19] MEDS: METOPROLOL 50 MG TABLET PO (09:26)
[2018-06-19] MEDS: METFORMIN HCL 500 MG TABLET 1000 MG PO (09:26)
[2018-06-19] MEDS: LOSARTAN 50 MG TABLET PO (09:26)
[2018-06-19] MEDS: APIXABAN 5 MG TABLET 2.5 MG PO (09:27)
[2018-06-19] MEDS: ASPIRIN 81 MG TAB PO (09:27)
[2018-06-19] MEDS: POLYETHYLENE GLYCOL 3350 17 GM POWD.PACK PO (09:27)
[2018-06-19] MEDS: SODIUM CHLORIDE 0.9% FLUSH 10 ML IV (09:28)
[2018-06-19 09:47] VITALS: O2SAT 95
[2018-06-19 11:00] VITALS: BP 132/89; PULSE 79; RESP 16; TEMP 36.6; O2SAT 97
--- NOTE | 2018-06-19 11:16 | CM.DPC ---
Addendum entered by TAE Milian 06/19/18 11:20: SW faxed finalized med rec. Original Note: Discharge Planning/Care Management Discharge/SNF: Per MD: patient to discharge to SNF today. Met with spouse/[place]: They have decided on [facility] with private room. Spouse is agreeable to discharge but wishes discharge occur after lunch. 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 Spouse and RN notified. SW faxed PASRR but is awaiting on finalized/sign med rec to fax to [facility]. Plan: Patient to discharge to [facility] today at 1330. SW to fax completed/signed med rec prior to discharge. Document 06/19/18 11:15 (Rec: 06/19/18 11:16 [id number]) Discharge Planning Assessment Assigned Manager Line NURSE MANAGER History Provided By Significant Other Has Patient been admitted in last 30 No days? Is this patient on Medicare? Yes Prior Living Arrangements House Household Members spouse Type of transporation used prior to Relies on Others admit Comment Spouse is his primary CG who provides transport and care. Independent with ADL's No Is patient alert and oriented? No Needs Assistance With Grooming Meal Prep Managing Medications Home Chores / Shopping Caregiver for Another No DME Already Rented / Owned Wheelchair Cane Patient Discharge Plan Description Longterm Facility Community Services Needed at Discharge Physical Therapy Social Work Referrals Initiated Longterm Comment [facility] today at 1330 Discharge Plan Longterm Facility Transportation Arrangement [facility] to pick up truck driver at 1330. If patient plan is SNF: Has PASSR been Yes completed? If Pt is MCR-Have 3 Inpt. midnights been Yes confirmed with UR? Review Status Complete Next Review Type Discharge Review
--- NOTE | 2018-06-19 11:25 | SLP.IPNOTE ---
FRAME FIXER attempted to see patient for dysphagia therapy. Patient was very lethargic, lying in bed with no family present. He requested to sleep when FRAME FIXER asked if he could participate in therapy. Patient's arrived shortly after FRAME FIXER arrived. She requested that the patient be allowed to sleep and asked the speech therapist to come back with lunch. FRAME FIXER reviewed the patient's current diet and informed that a thorough discharge summary regarding the patient's swallow function and dysphagia strategies will be added to the patient's discharge packet to be used after discharge to [facility]. FRAME FIXER will follow up.
--- NOTE | 2018-06-19 11:40 | OT.IP.TRT ---
Current Diagnoses Cerebral infarction, unspecified (06/12/18) Occupational Therapy Treatment Note M2 OT-IP Current Condition Start: 06/13/18 15:28 Freq: Status: Active Protocol: Document 06/15/18 12:26 [facility] (Rec: 06/15/18 12:58 [facility] [id number]) Occupational Therapy Current Condition Current Condition Evaluation Date 06/15/18 Treatment Diagnosis Possible acute CVA and CHF exacerbation Diagnosis Onset Date 06/12/18 Weight Bearing Status Weight Bearing Status Weight Bear as Tolerated M3 OT- IP Subjective and Pain Start: 06/13/18 15:28 Freq: Status: Active Protocol: Document 06/19/18 11:39 [facility] (Rec: 06/19/18 11:40 [facility] [id number]) OT- Subjective Occupational Therapy Visit Type Type Patient Refusal Notes Pt's states would rather let pt rest versus get up at this time. Pt to be discharged to skilled rehab today.
--- NOTE | 2018-06-19 13:51 | PC.NURSE ---
Day shift: Pt left unit to [facility] with his spouse and [facility] person via WC at . Has Transfer packet as well as all personal belongings. Report given to [facility] RN.
--- NOTE | 2018-06-19 15:09 | PM.DS.1 ---
History of Present Illness Date Patient Seen: 06/19/18 Time Patient Seen: 11:10 Chief complaint: WEAKNESS Narrative: Patient is a 82 years of age male who was admitted to [facility] with acute CVA brooke stroke. Patient had altered level of consciousness on admission. This improved during hospital course. Patient was discharged to [facility] on June 19. His level of consciousness improved during hospital course. He had a dysphagia diet with nectar thick liquid diet was recommended. Speech notes that he was taking orally adequate amount of fluid and nutrition such that a PEG would not be indicated at this time. Discharge Providers Date of admission: 06/12/18 22:54 Primary care physician: Santiago Oliva MD Consults: 06/12/18 22:50 Consult to Physician Routine Comment: Consulting Provider: Gilmer Toth Reason for consultation: admission 06/13/18 00:22 Consult to Dietitian, Adult Routine Comment: Reason For Exam: Poor appetite 06/13/18 00:24 Consult to Dietitian, Adult Routine Comment: Reason For Exam: As previous 06/13/18 13:08 Consult to Occupational Therapy Evaluate & Treat Comment: cva? Physician Instructions: d/c needs Consult to Physical Therapy Evaluate & Treat Comment: ?cva Physician Instructions: Evaluate and Treat 06/13/18 13:09 Consult to Speech Therapy Evaluate & Treat Comment: ?cva and possible aspiration Physician Instructions: Evaluate and treat Discharge provider: Wolf Andersen MD Summary Discharge Diagnosis: 1. CVA of brooke 2. History of atrial fibrillation on chronic anticoagulant therapy 3. Risk to aspirate on dysphagia diet and nectar thick liquid on day of discharge 4. 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 His level of consciousness was quite compromised on admission. Speech saw the patient and recommended a dysphagia diet with nectar thick liquid. Patient was at risk to aspirate. Patient was continued on his anticoagulant therapy with Eliquis 2.5 mg b.i.d.. Aspirin was provided at 81 mg daily along with Lipitor at 40 mg at bedtime. Patient improved quite remarkably during hospital course. At 1 point I was concerned that he would not be capable of taking sufficient amount of nutrition and fluids for daily needs. I held patient in the hospital determine if we needed a GJ tube or a G-tube placed to assure good nutrition. Much to the satisfaction of the speech therapist as well as myself patient started consuming fluids and eating better. Speech was satisfied with the amount being taken that was being monitored. Family looked in area for opportune jail placement. The [facility] home was decided. I discussed plans with the patient's son has a cardiothoracic surgeon. He was in agreement with the plan of the anticoagulant and antiplatelet with aspirin and the Lipitor medication. Status at Discharge Functional status at discharge: wheelchair bound Overall status at discharge: patient is progressing back to baseline Time Spent with Patient Greater than 30 minutes Exam Vital Signs (past 8 hours): - 06/19/18 07:40 06/19/18 09:47 06/19/18 11:00 Temperature 98.3 F 97.8 F Pulse Rate 99 H 79 Respiratory Rate 16 16 Blood Pressure 139/80 H 132/89 H Pulse Oximetry 95 95 97 Oxygen Delivery Method Room Air Oxygen Flow Rate 0 Narrative Exam Narrative: Patient is noted awake and alert in no apparent distress my Lang in good mood responsive to questioning follows commands no difficulty. Respiratory Clear to auscultation no wheezes no crackles Cardiovascular A mild systolic murmur is noted irregular irregular rhythm ventricular rate controlled GI Abdomen is soft nontender positive bowel sounds are noted Objective Labs Result Diagrams: 06/12/18 20:30 06/12/18 20:30 Discharge Plan Discharge Plan Patient Disposition: SNF Transfer to: [facility] Transportation: [facility] I certify the postop hospital alf care is medically necessary on a continuing basis for any conditions for which he/ she received care during this hospitalization.: Yes The receiving facility has agreed to accept transfer and provide medical treatment.: Yes Provider Discharge Instructions Diet: Diet as Tolerated Liquid consistency: [place] Consistency Food texture: Blenderized or pureed Wound Care Report to your healthcare provider any signs of infection, such as:: chills, fever, night sweats, increased pain and unusual drainage Special Rehabilitation Services Rehab type: Physical therapy, Occupational therapy and Speech therapy Discharge Data Primary Care Provider: Santiago Oliva V Attending Provider: Gilmer Toth Admit Date/Time: 06/12/18 22:54 Discharges patient from system. Discharge Date/Time: 06/19/18 13:53 Quality VTE Deep Vein Thrombosis/Pulmonary Embolism Present on Admission: Yes
--- NOTE | 2018-06-19 15:19 | P.DS_ITS ---
History of Present Illness Date Patient Seen: 06/19/18 Time Patient Seen: 11:10 Chief complaint: WEAKNESS Narrative: Patient is a 82 years of age male who was admitted to [facility] with acute CVA brooke stroke. Patient had altered level of consciousness on admission. This improved during hospital course. Patient was discharged to [facility] on June 19. His level of consciousness improved during hospital course. He had a dysphagia diet with nectar thick liquid diet was recommended. Speech notes that he was taking orally adequate amount of fluid and nutrition such that a PEG would not be indicated at this time. Discharge Providers Date of admission: 06/12/18 22:54 Primary care physician: Santiago Oliva MD Consults: 06/12/18 22:50 Consult to Physician Routine Comment: Consulting Provider: Gilmer Toth Reason for consultation: admission 06/13/18 00:22 Consult to Dietitian, Adult Routine Comment: Reason For Exam: Poor appetite 06/13/18 00:24 Consult to Dietitian, Adult Routine Comment: Reason For Exam: As previous 06/13/18 13:08 Consult to Occupational Therapy Evaluate & Treat Comment: cva? Physician Instructions: d/c needs Consult to Physical Therapy Evaluate & Treat Comment: ?cva Physician Instructions: Evaluate and Treat 06/13/18 13:09 Consult to Speech Therapy Evaluate & Treat Comment: ?cva and possible aspiration Physician Instructions: Evaluate and treat Discharge provider: Wolf Andersen MD Summary Discharge Diagnosis: 1. CVA of brooke 2. History of atrial fibrillation on chronic anticoagulant therapy 3. Risk to aspirate on dysphagia diet and nectar thick liquid on day of discharge 4. 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 His level of consciousness was quite compromised on admission. Speech saw the patient and recommended a dysphagia diet with nectar thick liquid. Patient was at risk to aspirate. Patient was continued on his anticoagulant therapy with Eliquis 2.5 mg b.i.d.. Aspirin was provided at 81 mg daily along with Lipitor at 40 mg at bedtime. Patient improved quite remarkably during hospital course. At 1 point I was concerned that he would not be capable of taking sufficient amount of nutrition and fluids for daily needs. I held patient in the hospital determine if we needed a GJ tube or a G-tube placed to assure good nutrition. Much to the satisfaction of the speech therapist as well as myself patient started consuming fluids and eating better. Speech was satisfied with the amount being taken that was being monitored. Family looked in area for opportune chcf placement. The [facility] home was decided. I discussed plans with the patient's son has a cardiothoracic surgeon. He was in agreement with the plan of the anticoagulant and antiplatelet with aspirin and the Lipitor medication. Status at Discharge Functional status at discharge: wheelchair bound Overall status at discharge: patient is progressing back to baseline Time Spent with Patient Greater than 30 minutes Exam Vital Signs (past 8 hours): - 06/19/18 07:40 06/19/18 09:47 06/19/18 11:00 Temperature 98.3 F 97.8 F Pulse Rate 99 H 79 Respiratory Rate 16 16 Blood Pressure 139/80 H 132/89 H Pulse Oximetry 95 95 97 Oxygen Delivery Method Room Air Oxygen Flow Rate 0 Narrative Exam Narrative: Patient is noted awake and alert in no apparent distress my Lang in good mood responsive to questioning follows commands no difficulty. Respiratory Clear to auscultation no wheezes no crackles Cardiovascular A mild systolic murmur is noted irregular irregular rhythm ventricular rate controlled GI Abdomen is soft nontender positive bowel sounds are noted Objective Labs Result Diagrams: 06/12/18 20:30 06/12/18 20:30 Discharge Plan Discharge Plan Patient Disposition: SNF Transfer to: [facility] Transportation: [facility] I certify the postop hospital assisted care is medically necessary on a continuing basis for any conditions for which he/ she received care during this hospitalization.: Yes The receiving facility has agreed to accept transfer and provide medical treatment.: Yes Provider Discharge Instructions Diet: Diet as Tolerated Liquid consistency: [place] Consistency Food texture: Blenderized or pureed Wound Care Report to your healthcare provider any signs of infection, such as:: chills, fever, night sweats, increased pain and unusual drainage Special Rehabilitation Services Rehab type: Physical therapy, Occupational therapy and Speech therapy Discharge Data Primary Care Provider: Santiago Oliva V Attending Provider: Gilmer Toth Admit Date/Time: 06/12/18 22:54 Discharges patient from system. Discharge Date/Time: 06/19/18 13:53 Quality VTE Deep Vein Thrombosis/Pulmonary Embolism Present on Admission: Yes
== END 2018-06-19 13:53 | DRG 64 ==
LOC: ED 22:50 → ICU 22:54 → AC 06-13 16:54
PROVIDERS: Internal Medicine; Admitting Provider Internal Medicine; Emergency Provider Nurse Practitioner Family; Family Provider Internal Medicine; PCP Internal Medicine; Visit Provider Internal Medicine
DX: I63.449 Cerebral infarction due to embolism of unspecified cerebellar artery (principal); I50.21 Acute systolic (congestive) heart failure; G81.91 Hemiplegia, unspecified affecting right dominant side; R26.2 Difficulty in walking, not elsewhere classified; E11.9 Type 2 diabetes mellitus without complications; Z79.84 Long term (current) use of oral hypoglycemic drugs; I48.2 Chronic atrial fibrillation; I10 Essential (primary) hypertension; E78.5 Hyperlipidemia, unspecified; F03.90 Unspecified dementia, unspecified severity, without behavioral disturbance, psychotic disturbance, mood disturbance, and anxiety; Z66 Do not resuscitate; W18.30XA Fall on same level, unspecified, initial encounter; Y92.003 Bedroom of unspecified non-institutional (private) residence as the place of occurrence of the external cause; R29.6 Repeated falls; Z86.73 Personal history of transient ischemic attack (TIA), and cerebral infarction without residual deficits; G47.33 Obstructive sleep apnea (adult) (pediatric); R13.10 Dysphagia, unspecified
CPT/HCPCS: 36415; 36591; 36592; 70450; 70553; 71045; 72072; 72100; 80053; 81003; 81015; 82550; 82553; 82962; 83880; 84484; 85025; 87797; 92523; 92526; 92610; 93005; 97163; 97166; 97530; 97535; 99284; 99285; A9579; J1940

== ENCOUNTER 2018-09-12 10:43 | Inpatient (IN) | payer MEDICARE, SELFPAY ==
[2018-06-13 00:01] VITALS: BMI 24.7
[2018-09-12] VITALS (10 sets, daily range): BP systolic 136–188; BP diastolic 88–124; PULSE 127–174; RESP 20–34; TEMP 36.7–37.7; O2SAT 89–100; BMI 28.2
--- NOTE | 2018-09-12 10:51 | DI.CT.S_ITS ---
PROCEDURE: CT HEAD/BRAIN WO CON INDICATIONS: altered mental status TECHNIQUE: Noncontrast 4.5 mm thick angled axial sections acquired from the foramen magnum to the vertex, with coronal and sagittal reformats. For radiation dose reduction, the following was used: automated exposure control, adjustment of mA and/or kV according to patient size. COMPARISON: [facility], CT, CT HEAD/BRAIN WO CON, 06/12/2018, 19:38. [facility], CT, HEAD WITHOUT CONTRAST, 12/30/2017, 15:47. FINDINGS: Image quality: Excellent. CSF spaces: Basal cisterns are patent. No extra-axial fluid collections. The ventricles are asymmetric in size and shape, with distortion of the right lateral ventricle and third ventricle do to a large hemorrhage in the adjacent brain parenchyma. Brain: No intracranial malignant appearing masses but there is a large acute hemorrhage involving the lentiform nuclei region of the right hemisphere, with the overall size of the hemorrhage up to 7.8 cm AP, 4.3 cm transverse and 4.7 cm craniocaudad. This hemorrhage appears to penetrate into the third ventricle which is bowed leftward across the midline and also the right lateral ventricle with extension into the posterior horn of this area. A small amount of hemorrhage is seen layering within the posterior border of the left lateral ventricle, and ventricular enlargement of the occipital horn bilaterally is associated when compared to the similar head CT from May of this year. Hemorrhage also extends inferiorly into the cerebral aqueduct and fourth ventricle. Prominent microvascular atherosclerotic changes again noted bilaterally. There is cerebral volume loss for age, with resultant ventricular and sulcal prominence. There are periventricular and deep white matter chronic small vessel ischemic changes. There is intracranial internal carotid artery atherosclerosis. Skull and face: Calvarium and visualized facial bones appear intact, without suspicious lesions. Sinuses: Visualized sinuses and mastoids are clear. IMPRESSION: Large hemorrhage centered in the lentiform nuclei region of the right hemisphere with hemorrhage penetrating into the right lateral ventricle, the third ventricle, cerebral aqueduct and fourth ventricle and a small amount of hemorrhage has extended into the posterior aspect of the occipital horn of the left lateral ventricle. 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 There is mass effect deviating the midline structures from right to left, by at least 1.5 cm. Extensive microvascular atherosclerotic change is seen within the deep white matter of each hemisphere and multiple prior strokes likely have occurred given extension of encephalomalacia cephalad to the cortical surface. This has been previously present. Dictated by: Sawyer Carpio M.D. on 09/12/2018 at 11:04 Approved by: Sawyer Carpio M.D. on 09/12/2018 at 11:11
--- NOTE | 2018-09-12 10:52 | ED.AMS ---
HPI - Altered Mental Status General Chief Complaint: Unresponsive Stated Complaint: unresponsive Time Seen by Provider: 09/12/18 10:50 Source: family (, son Adithya), EMS and other (caregiver) Mode of arrival: EMS Limitations: altered mental status History of Present Illness HPI narrative: This an 82-year-old male comes to the emergency department with altered mental status. Patient was discharged yesterday from [facility] after being there for 3 months for a stroke. This morning his states that that he was breathing deeply but they were not waking him up. The caregiver who just started today had arrived and she states that they were rolling him over from side to side to clean and he was not waking up which is not his normal baseline. They contacted EMS. She states that he was breathing regularly throughout the entire time and they did feel he had a pulse and it was very and she was told to start CPR. They did perform CPR but per their description patient did have a pulse and respirations throughout. EMS arrived and states that they did a pulse check upon arrival patient did have a pulse and did have respirations. He is on Coumadin. Related Data Home Medications Medication Instructions Recorded Confirmed atorvastatin 40 mg PO QDAY #0 10/12/12 06/12/18 latanoprost 1 drp [facility] HS #2.5 ml 10/12/12 06/12/18 metformin [Glucophage] 1,000 mg PO BIDCC #0 10/12/12 06/12/18 metoprolol succinate 50 mg PO QDAY #0 10/12/12 06/12/18 acetaminophen 1,000 mg PO TID #0 12/08/17 06/12/18 apixaban [Eliquis] 2.5 mg PO BID #0 12/08/17 06/12/18 losartan 50 mg PO QDAY #0 12/08/17 06/12/18 metoprolol succinate [Toprol XL] 100 mg PO QDAY #0 12/08/17 06/12/18 B-12 Compliance 1 dose PO DIRECTED 06/13/18 06/15/18 mirabegron [Myrbetriq] 50 mg PO Q OTHER DAY 06/13/18 06/13/18 Previous Rx's Medication Instructions Recorded aspirin 81 mg PO DAILY #90 tab 06/19/18 Allergies Allergy/AdvReac Type Severity Reaction Status Date / Time No Known Drug Allergies Allergy Verified 06/12/18 22:57 Review of Systems Review of Systems unobtainable due to mental condition Exam Narrative Exam Narrative: GEN: well nourished, elderly male in distress. Patient is not arousable to physical stimuli. HEENT: Atraumatic, pupils are equal round 3 mm and nonreactive, , nares are clear, TMs are clear with no fluid. HEART: Regular rate and rhythm without murmur, clicks, rubs. LUNGS:Lungs rhonchorous bilaterally, no wheezes. Chest moves symmetrically. Patient has a deep respirations they do not appear to be agonal but regular at this time. ABD:bowel sounds normal, soft, non-tender, no guarding, rebound, rigidity, no masses noted, nondistended. MSCL: Does not respond to physical stimuli. no muscle atrophy, patient has some extensor posturing intermittently. NEURO: GCS of 3 Initial Vital Signs Initial Vital Signs: Vital Signs Temperature 98.1 F 09/12/18 10:43 Pulse Rate 127 H 09/12/18 10:43 Respiratory Rate 29 H 09/12/18 10:43 Blood Pressure 158/109 H 09/12/18 10:43 Pulse Oximetry 100 09/12/18 10:43 Scores GCS [place] coma scale eye opening: None [place] coma scale verbal response: None [place] coma scale motor response: None [place] coma scale total score: 3 Course Orders Ordered: ED Orders 09/12/18 10:50 Arterial Blood Gas Stat Complete Blood Count AUTO DIFF Stat Comprehensive Metabolic Panel Stat Lactate (Lactic Acid) Stat Partial Thromboplastin Time Stat Prothrombin Time INR Stat Salicylate Stat Troponin I Stat Urine Culture Stat EKG-12 Lead Stat 09/12/18 10:51 CT head/brain wo con Stat Glycopyrrolate (Robinul) 0.4 mg IV Q4H PRN PRN Reason: Secretions Last Admin: 09/12/18 18:37 Dose: 0.4 mg Haloperidol (Haldol) 2 mg IV Q1H PRN PRN Reason: Agitation Hydromorphone HCl (Dilaudid) 0.2 mg IV Q1H PRN PRN Reason: Pain, Moderate (4-6) Last Admin: 09/12/18 18:33 Dose: 0.2 mg Lorazepam (Ativan) 0.5 mg IV Q2HR PRN PRN Reason: Anxiety Ondansetron HCl (Zofran) 4 mg IV Q8HR PRN PRN Reason: Nausea And Vomiting Last Admin: 09/12/18 18:37 Dose: 4 mg Discontinued Medications Morphine Sulfate (Morphine) 2 mg IV Q2HR PRN PRN Reason: Pain, Moderate (4-6) Last Admin: 09/12/18 12:53 Dose: 2 mg Vital Signs - 8 hr 09/12/18 11:25 09/12/18 11:34 09/12/18 11:45 Temperature Pulse Rate 174 H 156 H 150 H Respiratory Rate 29 H 27 H 27 H Blood Pressure Blood Pressure [Right Arm] 171/121 H 159/121 H 156/117 H Pulse Oximetry 98 97 100 09/12/18 12:00 09/12/18 12:25 09/12/18 13:40 Temperature 99.9 F H Pulse Rate 135 H 173 H 137 H Respiratory Rate 24 21 20 Blood Pressure 136/88 Blood Pressure [Right Arm] 173/116 H 188/88 H Pulse Oximetry 100 97 96 09/12/18 14:31 09/12/18 15:00 Temperature Pulse Rate Respiratory Rate 28 H 34 H Blood Pressure Blood Pressure [Right Arm] Pulse Oximetry MDM - Altered Mental Status Lab Data Attestation: I reviewed the patient's lab results. Result diagrams: 09/12/18 10:50 09/12/18 10:50 Lab Results 09/12/18 09/12/18 09/12/18 Range/Units 10:50 10:50 10:50 WBC 9.7 (4.5-11.0) X10^3/uL RBC 4.32 L (4.5-5.9) X10^6/uL Hgb 11.6 L (13.5-17.5) g/dL Hct 35.4 L (41-53) % MCV 81.9 (80-100) fL MCH 26.8 (26-34) PG MCHC 32.7 (30-36) % RDW 16.5 H (11.6-14.8) % Plt Count 400 (150-400) X10^3/uL Neut % (Auto) 81.7 H (50-75) % Lymph % (Auto) 13.2 L (25-40) % [place] % (Auto) 4.6 (3-14) % Eos % (Auto) 0.3 L (2-4) % Baso % (Auto) 0.2 (0-2) % Neut # (Auto) 7900 H (4146-3898) /uL PT 14.1 H (10.1-12.7) SECONDS INR 1.3 (0.9-1.3) APTT 24 L (26.4-36.2) SECONDS Sodium 138 (137-145) mmol/L Potassium 4.4 (3.4-5.1) mmol/L Chloride 99 (98-107) mmol/L Carbon Dioxide 24 (22-32) mmol/L BUN 14 (9-20) mg/dL Creatinine 0.80 (0.66-1.25) mg/dL Estimated GFR > 60.0 (>60) mL/min BUN/Creatinine Ratio 17.5 (6-22) Glucose 213 H (80-110) mg/dL Lactate (0.7-2.1) mmol/L Calcium 9.3 (8.4-10.2) mg/dL Total Bilirubin 0.6 (0.2-1.3) mg/dL AST 25 (17-59) IU/L ALT 24 (21-72) IU/L Alkaline Phosphatase 106 (38-126) U/L Troponin I < 0.012 (0.01-0.034) ng/mL Total Protein 8.2 (6.3-8.2) g/dL Albumin 4.2 (3.5-5.0) g/dL Globulin 4.0 (1.7-4.1) g/dL Albumin/Globulin Ratio 1.1 (1.0-2.8) Salicylates < 1.0 (<20) mg/dL 09/12/18 Range/Units 10:50 WBC (4.5-11.0) X10^3/uL RBC (4.5-5.9) X10^6/uL Hgb (13.5-17.5) g/dL Hct (41-53) % MCV (80-100) fL MCH (26-34) PG MCHC (30-36) % RDW (11.6-14.8) % Plt Count (150-400) X10^3/uL Neut % (Auto) (50-75) % Lymph % (Auto) (25-40) % [place] % (Auto) (3-14) % Eos % (Auto) (2-4) % Baso % (Auto) (0-2) % Neut # (Auto) (7234-2918) /uL PT (10.1-12.7) SECONDS INR (0.9-1.3) APTT (26.4-36.2) SECONDS Sodium (137-145) mmol/L Potassium (3.4-5.1) mmol/L Chloride (98-107) mmol/L Carbon Dioxide (22-32) mmol/L BUN (9-20) mg/dL Creatinine (0.66-1.25) mg/dL Estimated GFR (>60) mL/min BUN/Creatinine Ratio (6-22) Glucose (80-110) mg/dL Lactate 3.5 H (0.7-2.1) mmol/L Calcium (8.4-10.2) mg/dL Total Bilirubin (0.2-1.3) mg/dL AST (17-59) IU/L ALT (21-72) IU/L Alkaline Phosphatase (38-126) U/L Troponin I (0.01-0.034) ng/mL Total Protein (6.3-8.2) g/dL Albumin (3.5-5.0) g/dL Globulin (1.7-4.1) g/dL Albumin/Globulin Ratio (1.0-2.8) Salicylates (<20) mg/dL ECG Data Attestation: I personally reviewed and interpreted this ECG as follows: Interpretation: AFib with rapid ventricular response, rate of 166 QRS of 98 and a QTC of 361. Patient has ST depression V3 through V5. No elevation. MDM Narrative Medical decision making narrative: Patient arrived with a pulsed form that states DNR/DNI with limited interventions. His is asking that we intubate although when asked directly if her would wish to be intubated she indicates that he likely would not but that she would want him to be. She does have a son Adithya who she states is a physician that she would like us to talk to. We discussed that we will start with some some imaging and lab work and then make a final decision about intubation. Patient is able to breathe currently at this time and is on a non-rebreather. Head CT shows massive intracranial hemorrhage. Dr. Carpio with Radiology called the results to myself. I spoke with son Adithya who also spoke with his two siblings (brother and sister) on several occasions and at length and ultimately patient was decided to be comfort measures with no intubation or CPR as per patient wishes. Continue non-rebreather as well as medication for comfort. Spoke with Dr. Gonsalez who accepts for admission for comfort measures and intracranial hemorrhage. Patient's other son did also call and I reviewed patient's current medical condition and he agrees with plan for no resuscitative efforts or intubation at this time. Discharge Plan Departure Patient Disposition: Admitted As Inpatient Clinical Impression: Intracranial hemorrhage Discharge Date/Time: 09/12/18 13:30 Interventions: ED Discharge Assessment Last Done: 09/12/18 12:40 Admit Date/Time: 09/12/18 12:06 Admit Provider: Bharathi Willett
[2018-09-12 11:18] LABS: Add Manual Diff / Slide Review NO; Basophils Percent Auto 0.2 % (0-2); Eosinophils Percent Auto 0.3 % (2-4); Hematocrit 35.4 % (41-53); Hemoglobin 11.6 g/dL (13.5-17.5); Lymphocytes Percent Auto 13.2 % (25-40); Mean Corpuscular HGB Conc 32.7 % (30-36); Mean Corpuscular Hemoglobin 26.8 PG (26-34); Mean Corpuscular Volume 81.9 fL (80-100); Monocytes Percent Auto 4.6 % (3-14); Neutrophils Absolute Auto 7900 /uL (3000-5900); Neutrophils Percent Auto 81.7 % (50-75); Platelet Count 400 X10^3/uL (150-400); Red Blood Cell Count 4.32 X10^6/uL (4.5-5.9); Red Cell Distribution Width 16.5 % (11.6-14.8); White Blood Cell Count 9.7 X10^3/uL (4.5-11.0)
[2018-09-12 11:27] LABS: INR 1.3 (0.9-1.3); Prothrombin Time 14.1 SECONDS (10.1-12.7)
[2018-09-12 11:30] LABS: Lactate (Lactic Acid) 3.5 mmol/L (0.7-2.1); PTT Partial Thromboplastin Tim 24 SECONDS (26.4-36.2)
[2018-09-12 11:31] LABS: Alanine Aminotransferase 24 IU/L (21-72); Albumin 4.2 g/dL (3.5-5.0); Albumin Globulin Ratio 1.1 (1.0-2.8); Alkaline Phosphatase 106 U/L (38-126); Aspartate Aminotransferase 25 IU/L (17-59); BUN Creatinine Ratio 17.5 (6-22); Bilirubin Total 0.6 mg/dL (0.2-1.3); Blood Urea Nitrogen 14 mg/dL (9-20); Calcium 9.3 mg/dL (8.4-10.2); Carbon Dioxide 24 mmol/L (22-32); Chloride 99 mmol/L (98-107); Estimated Glomerular Filt Rate > 60.0 mL/min (>60); Glucose 213 mg/dL (80-110); HEMOLYSIS 30 (0-50); Potassium 4.4 mmol/L (3.4-5.1); Sodium 138 mmol/L (137-145); Total Protein 8.2 g/dL (6.3-8.2)
[2018-09-12 11:32] LABS: Salicylate < 1.0 mg/dL (<20)
--- NOTE | 2018-09-12 11:33 | PC.NURSE ---
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 He was discharged from [facility] recently after 3 months of rehabilitation. Pt was at baseline yesterday but this am was unresponsive. Unknown last known well. Oral airway placed to maintain airway w/ good effect. On 15 L NRB oxygen w/ sats maintained 99%. If on room air, sat drops to 80%. Arrives GCS 3 (1-1-1). Decorticate posturing. placed on monitor, IV x 2 established in field. MD in to eval. To CT on monitor w/ RN and MD. Noted large hemorrhagic stroke. Family in and present. Multiple discussions w/ family regarding code status. At this time, pt is comfort measures only. Hide Selector at bedside.
[2018-09-12 11:42] LABS: Troponin I < 0.012 ng/mL (0.01-0.034)
[2018-09-12] MEDS: MORPHINE 2 MG/ML INJ IV (12:53)
--- NOTE | 2018-09-12 13:35 | RT ---
I was called to room when pt arived for possible intubation. Upon entering, pt is breathing with partial airway obstruction. Decision to not intubate was told to me. Red oral airway inserted without complications, relieving most of airway obstruction. Pt remains on NRB mask. Dr. Avendaño and Nurse Kasie remained at bedside.
--- NOTE | 2018-09-12 13:42 | PC.NURSE ---
Vital signs Q5m taken. See paper chart.
--- NOTE | 2018-09-12 13:44 | P.HP_ITS ---
History of Present Illness Chief complaint: unresponsive Narrative: Patient is a 82-year-old male with history of CVA involving the brooke 3 months ago presents unresponsive to the ED. Patient was admitted to [facility] 06/19/2018. MRI revealed to focus of changes compatible with CVA involving the brooke. The MR a of the neck and brain was without abnormalities. He was discharged to rehab and remained there until 09/12/2018. Then this morning his was unable to arouse him. When EMS arrived there was concern he did not have a pulse and CPR was started. Subsequently patient had a pulse and CPR was discontinued. Upon arrival to the ED blood pressure is 158/109 pulse was 127 respirations 29 temperature was 98.1?. Official report of CT scan is not available however per Dr. Erika ewing she was informed by radiologist that the CT scan showed massive finger cranial hemorrhage. After discussion with and son Adithya it was decided to make the patient comfort care and he was therefore admitted Patient History Medical History Diabetes (Acute) Dyslipidemia (Acute) Hypertension (Acute) Dementia (Acute) Frequent falls (Acute) History of TIAs (Acute) Family & Social History Social History: household members spouse Tobacco & Substance use: Smoking Status Never smoker alcohol intake never alcohol intake frequency 0-2 drinks per day Substance Use Type does not use Meds Home Medications Medication Instructions Recorded Confirmed Type atorvastatin 40 mg PO QDAY #0 10/12/12 06/12/18 History latanoprost 1 drp OPH HS #2.5 ml 10/12/12 06/12/18 History metformin [Glucophage] 1,000 mg PO BIDCC #0 10/12/12 06/12/18 History metoprolol succinate 50 mg PO QDAY #0 10/12/12 06/12/18 History acetaminophen 1,000 mg PO TID #0 12/08/17 06/12/18 History apixaban [Eliquis] 2.5 mg PO BID #0 12/08/17 06/12/18 History losartan 50 mg PO QDAY #0 12/08/17 06/12/18 History metoprolol succinate [Toprol XL] 100 mg PO QDAY #0 12/08/17 06/12/18 History B-12 Compliance 1 dose PO DIRECTED 06/13/18 06/15/18 History mirabegron [Myrbetriq] 50 mg PO Q OTHER DAY 06/13/18 06/13/18 History aspirin 81 mg PO DAILY #90 tab 06/19/18 Rx Allergies Allergy/AdvReac Type Severity Reaction Status Date / Time No Known Drug Allergies Allergy Verified 06/12/18 22:57 Review of Systems Review of Systems All systems reviewed & are unremarkable except as noted in HPI and below Exam Vital Signs (past 8 hours): - 09/12/18 10:43 09/12/18 11:05 09/12/18 11:25 Temperature 98.1 F Pulse Rate 127 H 170 H 174 H Respiratory Rate 29 H 33 H 29 H Blood Pressure 158/109 H Blood Pressure [Right Arm] 177/124 H 171/121 H Pulse Oximetry 100 89 L 98 09/12/18 11:34 09/12/18 11:45 09/12/18 12:00 Temperature Pulse Rate 156 H 150 H 135 H Respiratory Rate 27 H 27 H 24 Blood Pressure Blood Pressure [Right Arm] 159/121 H 156/117 H 173/116 H Pulse Oximetry 97 100 100 09/12/18 12:25 Temperature Pulse Rate 173 H Respiratory Rate 21 Blood Pressure Blood Pressure [Right Arm] 188/88 H Pulse Oximetry 97 Oxygen Delivery Method Non -Rebreather Oxygen Flow Rate 15 Narrative Exam Narrative: General. Rhonchorous respirations HEENT normocephalic atraumatic extraocular movement was intact pupils were equal round fundi not visualized oropharynx not visualized Neck supple without thyromegaly bruits or jugular venous distention Lungs on anterior auscultation were clear Heart regular rhythm S1-S2 was normal Abdomen benign bowel sounds active Extremities no clubbing edema or cyanosis Neurologic patient was obtended Objective Labs Result Diagrams: 09/12/18 10:50 09/12/18 10:50 Labs: Laboratory Results - last 24 hr 09/12/18 09/12/18 09/12/18 10:50 10:50 10:50 WBC 9.7 RBC 4.32 L Hgb 11.6 L Hct 35.4 L MCV 81.9 MCH 26.8 MCHC 32.7 RDW 16.5 H Plt Count 400 Neut % (Auto) 81.7 H Lymph % (Auto) 13.2 L [place] % (Auto) 4.6 Eos % (Auto) 0.3 L Baso % (Auto) 0.2 Neut # (Auto) 7900 H PT 14.1 H INR 1.3 APTT 24 L Sodium 138 Potassium 4.4 Chloride 99 Carbon Dioxide 24 BUN 14 Creatinine 0.80 Estimated GFR > 60.0 BUN/Creatinine Ratio 17.5 Glucose 213 H Lactate Calcium 9.3 Total Bilirubin 0.6 AST 25 ALT 24 Alkaline Phosphatase 106 Troponin I < 0.012 Total Protein 8.2 Albumin 4.2 Globulin 4.0 Albumin/Globulin Ratio 1.1 Salicylates < 1.0 09/12/18 10:50 WBC RBC Hgb Hct MCV MCH MCHC RDW Plt Count Neut % (Auto) Lymph % (Auto) [place] % (Auto) Eos % (Auto) Baso % (Auto) Neut # (Auto) PT INR APTT Sodium Potassium Chloride Carbon Dioxide BUN Creatinine Estimated GFR BUN/Creatinine Ratio Glucose Lactate 3.5 H Calcium Total Bilirubin AST ALT Alkaline Phosphatase Troponin I Total Protein Albumin Globulin Albumin/Globulin Ratio Salicylates Assessment & Plan Plan: Assessment/Plan Narrative: Obtained a shins secondary to massive intracranial hemorrhage. Patient is comfort care Will maintain patient on comfort meds with Dilaudid 0.2 mg IV q.1 hour hours as needed, Ativan 0.5 mg IV q.2 hours as needed, scopolamine patch, Mane all 0.4 mg Q 4 hr as needed increased secretions
--- NOTE | 2018-09-12 16:08 | PC.NURSE ---
Admit: Late entry Arrived to room 210 approx 1400. Unresponsive. RR 28/min. Placed on 3L O2 via nasal cannula. Oral airway in place, HOB elevated. Patient appeared comfortable and in no acute distress. Alatorre to gravity. Comfort measures only. Oriented his family to room and call light, encouraged them to call staff with any needs/concerns.
[2018-09-12] MEDS: HYDROMORPHONE 1 MG INJ 0.2 MG IV ×2 (18:33→22:34)
[2018-09-12] MEDS: GLYCOPYRROLATE 1 MG/5 ML MDV 0.4 MG IV (18:37)
[2018-09-12] MEDS: ONDANSETRON 4 MG/2 ML INJ IV (18:37)
--- NOTE | 2018-09-12 20:06 | PC.NURSE ---
Assumed care of pt from outgoing shift at 1500 this day. pt family at bedside, son will be here around 10pm they report, daughter will be here around dinner time. discussed medications with family. family states they feel that he is comfortable. discussed medications with family and their uses. hunter patent. Pt given pain meds. RT called as oral airway was working tis way out and pt was biting it. meds given and RT dealt with oral airway. discussed with family about homes. and process, family does not have home picked out as this is still new and fresh. Pt seems comfortable but breathing shallowly and rapidly. does not open eyes, but does moves head a bit. minimal assessment completed per family request. will continue to monitor.
[2018-09-13] VITALS: O2SAT 90
[2018-09-13] MEDS: GLYCOPYRROLATE 1 MG/5 ML MDV 0.4 MG IV ×2 (00:26→04:47)
[2018-09-13 00:40] VITALS: O2SAT 3
[2018-09-13] MEDS: HYDROMORPHONE 1 MG INJ 0.2 MG IV ×3 (00:44→08:32)
[2018-09-13 04:59] VITALS: O2SAT 91
[2018-09-13 06:45] VITALS: BP 126/77; PULSE 120; RESP 28; TEMP 38.4; O2SAT 90
[2018-09-13] MEDS: SCOPOLAMINE 1 PATCH TOP (08:32)
[2018-09-13] MEDS: LORazepam 2 MG/ML SYRINGE 0.5 MG IV ×5 (08:33→23:52)
[2018-09-13 09:11] VITALS: PULSE 115; RESP 34; O2SAT 95
[2018-09-13] MEDS: MORPHINE 10 MG/0.5 ML ORAL SYRINGE PO ×7 (10:30→23:33)
--- NOTE | 2018-09-13 12:07 | CM.IDA ---
DCP Assessment Note: Pt is an 82 yo male, resident of [place]. Pt now admitted for comfort care; pt found unresponsive by spouse and CT scan has confirmed a brain hemorrhage. Pt's PCP is Dr Oliva; Insurance is Medicare/[employer]. Pt familiar to this DIRECTOR MEDICAL since his admission for a stroke in May. He had DC to [facility] at that time. Pt has dementia at baseline and lives w/spouse Dilma. According to Dr Rogers; pt's Dilma, dtr Jamila and son Adithya are in the room this morning and considering taking pt home w/f/u from Hospice when it is available. Another adult child will be arriving this evening. Met w/pt's family at bedside, explained role. Pt resting comfortably in bed, O2 on. Family explained that their goal was to take pt home if they could continue to keep him comfortable. Pt has a hospital bed already, family requests home O2 to maintain pt's comfort. Family requests this DIRECTOR MEDICAL send referral to [facility], and ask when they could admit pt on to Hospice service. Discussed other steps that could be taken today to make family feel comfortable taking pt home? Pt's son Adithya is a surgeon and feels he has the medical expertise to administer medication although requests detailed advice and a comfort care med set in order to keep his father comfortable. Family are confident they would not want to call 911 in case of a medical change, that they would want to keep pt home. While this DIRECTOR MEDICAL was at bedside, GORDO George removed pt's O2 w/family's permission, he had recently received a dose of morphine (solution). Doris felt pt would likely not need the O2 to remain comfortable, but that family could decide whether to return the O2. This DIRECTOR MEDICAL contacted [facility], spoke w/Earnestine. Faxed referral. Earnestine indicated that the home O2 and bedside table could be delivered tomorrow but an admission date could not be discussed until Friday. Updated pt's family w/this information. Inevitably, pt's spouse wanted pt to have O2 back on, according to GORDO George. Family also requesting that pt remain in the hospital tonight and DC home tomorrow. This DIRECTOR MEDICAL will check in w/pt's family before leaving for the day. P: DC likely home w/family via BLS tomorrow if he survives this hospitalization. Hospice has the referral and DME scheduled to be delivered Friday morning. Hospice schedule needs to be reviewed w/[facility] staff on Friday. Following closely for coordination w/family of safe DC plan. TAE Underwood Discharge Planning/Care Management CM Discharge Assessment Start: 09/13/18 12:05 Freq: Status: Active Protocol: Document 09/13/18 12:05 [email or web address] (Rec: 09/13/18 12:07 [id number]) Discharge Planning Assessment Assigned Math Tutor TAE Garvin DPOA/Assigned Designee Name Meme Argueta, spouse Contact Information [phone], cell , home Advance Directives? No: Kira has POA History Provided By Significant Other Prior Living Arrangements House Household Members spouse Type of transporation used prior to Relies on Others admit Independent with ADL's No Is patient alert and oriented? No Comment All ADLs Comment Home w/family and Hospice Referrals Initiated Other Additional Comment Hospice Whiteboard Updated in Patient Room with Yes name and ext. # of Math Tutor Review Status In Process
--- NOTE | 2018-09-13 13:22 | PM.PN.1 ---
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 His son and daughter have arrived. His son is a thoracic surgeon in [place] and asks appropriate imaging questions and makes suggestions for early transition to care at home. His is present. The patient continues to be tachypneic and dependent on IV Dilaudid for comfort. Sublingual morphine has not been tried and he has not been on a morphine drip as yet. Exam Vital Signs (past 8 hours): - 09/13/18 06:45 09/13/18 09:11 Temperature 101.2 F H Pulse Rate 120 H 115 H Respiratory Rate 28 H 34 H Blood Pressure 126/77 Pulse Oximetry 90 L 95 Oxygen Delivery Method Nasal Cannula Oxygen Flow Rate 3 Narrative Exam Narrative: He is comatose. Breathing rapidly. Showing no signs of awareness. Heart is regular rate and rhythm with a 3/6 systolic ejection murmur. Lungs are clear to auscultation bilaterally. Extremities no ankle edema. Objective Labs Result Diagrams: 09/12/18 10:50 09/12/18 10:50 Assessment & Plan (1) CVA (cerebral vascular accident): Current visit: No Status: Acute Assessment/Plan Narrative: He is on comfort measures, awaiting hospice to follow him at home. I spent some time with his adult son and daughter along with his discussing options. They thought for some time about taking him home under their professional care today or tomorrow to await hospice and to dose him on either IV morphine or sublingual morphine. Since it is Friday the options are limited including finding out when exactly hospice can begin following him. He is showing no signs of a blown pupil to indicate herniation suggesting that he could live like this for about up to a week given the recent nourishment and excellent care he has received. He will be started on sublingual morphine at doses high enough to bring the respiratory rate down from the rapid rate noted at this time. I showed his MRI films to his family and discussed the prognosis in terms of the range of 1-7 days expected to survive. (2) Intracranial hemorrhage: Current visit: Yes Status: Acute Assessment/Plan Narrative: See discussion above. Large intercerebral hemorrhage seen on films of the MRI scan. Extensive disposition discussions with shutdown planner this morning and this afternoon. Time Spent With Patient Time with patient: Greater than 35 minutes
--- NOTE | 2018-09-13 19:14 | PC.NURSE ---
Assumed care of pt from outgoing shift this day at 1500. Pt family at bedside. pt in no apparent distress. frequent checks. suctioned per pt family. Pt repositioned and given morphine, ativan per family request. encouraged to call if needing assistance. Pt on nc 3L. minimal assessments/ no vitals being taken. unless family requests. will continue to monitor.
[2018-09-14] MEDS: MORPHINE 10 MG/0.5 ML ORAL SYRINGE 20 MG PO ×3 (00:38→05:09)
[2018-09-14] MEDS: MORPHINE 10 MG/0.5 ML ORAL SYRINGE PO (04:11)
--- NOTE | 2018-09-14 05:42 | PC.NURSE ---
Discussed with 2 sons, daughter, and the potential side effects of morphine and ativan, they are aware.
--- NOTE | 2018-09-14 06:10 | PC.NURSE ---
Notified by son at 0605 that his father had passed at 0550. Hospitalist Carrie Wells notified. Family at bedside and will wait for there wishes for removing lines.
--- NOTE | 2018-09-14 10:12 | CM.DPC ---
DCP/continued: Reviewed chart. Current d/c plan was for patient to go home with hospice today. DIRECTOR OF HOME HEALTH SERVICES placed call go hospice this AM to determine start date. Per Jeramie they can this patient this AM. Unfortunately, spoke with RN and it was confirmed that patient had this AM. No family in room. Hospice notified. P: Patient during hospitalization which was not unexpected. TAE Mitchell
--- NOTE | 2018-09-14 10:22 | PC.NURSE ---
Am shift Arrived on shift, Pt had passed @ 0550, introduction to family, offered support, answered questions re: home and POC for post mortum care. No jewlery left on Pt. Lanrdy removed, and 2 IV sites d/memo Dee notified, arrived for Pt @ 0905. Escorted to ER for exit.
--- NOTE | 2018-09-15 04:03 | PM.DS.1 ---
History of Present Illness Date Patient Seen: 09/15/18 Time Patient Seen: 04:07 Chief complaint: unresponsive Narrative: Narrative: Patient is a 82-year-old male with history of CVA involving the brooke 3 months ago who presented unresponsive to the ED on 09/12. Patient was admitted to [facility] 06/19/2018. MRI revealed to focus of changes compatible with CVA involving the brooke. The MR a of the neck and brain was without abnormalities. He was discharged to rehab and remained there until 09/12/2018. On am of 09/12/18 his was unable to arouse him. When EMS arrived there was concern he did not have a pulse and CPR was started. Subsequently patient had a pulse and CPR was discontinued. Upon arrival to the ED blood pressure is 158/109 pulse was 127 respirations 29 temperature was 98.1?. Official report of CT scan is not available however per Dr. Erika ewing she was informed by radiologist that the CT scan showed massive finger cranial hemorrhage. 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 A notification via phone call was made of patient passing away on 09/15 at 5:50 a.m. Patient was not physically seen. Time Spent with Patient Less than 30 minutes Exam Vital Signs (past 8 hours): Oxygen Delivery Method Nasal Cannula Oxygen Flow Rate 3 Objective Labs Result Diagrams: 09/12/18 10:50 09/12/18 10:50 Discharge Plan Discharge Plan Patient Disposition: Discharge comment: Dee home Discharge Med Rec/Prescriptions Follow up/Referrals: Santiago Oliva MD [Primary Care Provider] - Discharge Data Primary Care Provider: Santiago Oliva V Attending Provider: Bharathi Willett Admit Date/Time: 09/12/18 12:06 Discharges patient from system. Discharge Date/Time: 09/14/18 11:44
--- NOTE | 2018-09-15 04:15 | P.DS_ITS ---
History of Present Illness Date Patient Seen: 09/15/18 Time Patient Seen: 04:07 Chief complaint: unresponsive Narrative: Narrative: Patient is a 82-year-old male with history of CVA involving the brooke 3 months ago who presented unresponsive to the ED on 09/12. Patient was admitted to [facility] 06/19/2018. MRI revealed to focus of changes compatible with CVA involving the brooke. The MR a of the neck and brain was without abnormalities. He was discharged to rehab and remained there until 09/12/2018. On am of 09/12/18 his was unable to arouse him. When EMS arrived there was concern he did not have a pulse and CPR was started. Subsequently patient had a pulse and CPR was discontinued. Upon arrival to the ED blood pressure is 158/109 pulse was 127 respirations 29 temperature was 98.1? . Official report of CT scan is not available however per Dr. Erika ewing she was informed by radiologist that the CT scan showed massive finger cranial hemorrhage. 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 A notification via phone call was made of patient passing away on at 5:50 a.m. Patient was not physically seen. Time Spent with Patient Less than 30 minutes Exam Vital Signs (past 8 hours): Oxygen Delivery Method Nasal Cannula Oxygen Flow Rate 3 Objective Labs Result Diagrams: 09/12/18 10:50 09/12/18 10:50 Discharge Plan Discharge Plan Patient Disposition: Discharge comment: Dee home Discharge Med Rec/Prescriptions Follow up/Referrals: Santiago Oliav MD [Primary Care Provider] - Discharge Data Primary Care Provider: Santiago Oliva V Attending Provider: Bharathi Willett Admit Date/Time: 09/12/18 12:06 Discharges patient from system. Discharge Date/Time: 09/14/18 11:44
== END 2018-09-14 11:44 | disposition expired | DRG 65 ==
LOC: ED 11:44 → AC 12:06
PROVIDERS: Admitting Provider Internal Medicine; Emergency Provider Emergency Medicine; Family Provider Internal Medicine; PCP Internal Medicine; Visit Provider Internal Medicine
DX: I62.9 Nontraumatic intracranial hemorrhage, unspecified (principal); G91.8 Other hydrocephalus; R40.20 Unspecified coma; Z51.5 Encounter for palliative care; Z79.01 Long term (current) use of anticoagulants; Z66 Do not resuscitate; Z86.73 Personal history of transient ischemic attack (TIA), and cerebral infarction without residual deficits
CPT/HCPCS: 51701; 70450; 80053; 80329; 83605; 84484; 85025; 85610; 85730; 93005; 93010; 94760; 96374; 99283; 99285; 99291; G0480; J1170; J2060; J2270; J2405